=== PATIENT | female | born 1960 | race Caucasian/White ===

== ENCOUNTER → 2020-11-16 08:39 | Outpatient (BNVA) | payer BC, SELFPAY | PROVIDERS: PCP Internal Medicine; Referring Provider Internal Medicine; Visit Provider Student in an Organized Health Care Education/Training Program | DX: Z76.89 Persons encountering health services in other specified circumstances (principal) ==

== ENCOUNTER 2020-12-14 08:04 | Outpatient (REF) | payer BC, SELFPAY ==
[2020-12-14 12:06] LABS: Alanine Aminotransferase 29 U/L (0-31); Albumin Level 4.3 g/dL (3.5-5.0); Alkaline Phosphatase 110 U/L (39-117); Anion Gap 15 (12-20); Aspartate Amino Transferase 19 U/L (5-31); Bilirubin Direct 0.3 mg/dL (0.0-0.5); Bilirubin Total 0.5 mg/dL (0.0-1.0); Blood Urea Nitrogen 18 mg/dL (9-16); Calcium 9.3 mg/dL (8.4-10.2); Carbon Dioxide 29 mmol/L (22-29); Chloride 104 mmol/L (96-108); Cholesterol 136 mg/dL; Estimated Glomerular Filt Rate > 60; Glucose Fasting 88 mg/dL (60-99); HDL Cholesterol 59 mg/dL; LDL Cholesterol Calculated 63 mg/dl; Potassium 5.3 mmol/l (3.3-5.1); Sodium 143 mmol/L (135-145); Total Protein 6.8 g/dL (6.5-8.0); Triglycerides 72 mg/dL
== END 2020-12-14 08:05 | disposition home or self-care (01) ==
LOC: HO.HMGCLDS 08:04
PROVIDERS: Student in an Organized Health Care Education/Training Program; PCP Internal Medicine; Visit Provider Internal Medicine
DX: I10 Essential (primary) hypertension (principal); E78.9 Disorder of lipoprotein metabolism, unspecified; M47.816 Spondylosis without myelopathy or radiculopathy, lumbar region
CPT/HCPCS: 36415; 80048; 80053; 80061; 80076; 82248

== ENCOUNTER 2021-06-27 08:05 | Outpatient (REF) | payer BC, SELFPAY ==
[2021-06-27 11:17] LABS: MANUAL DIFF FLAG NO
[2021-06-27 11:24] LABS: Basophils Percent Auto 0.3 % (0-2); Eosinophils Absolute Auto 0.1 X10*3/uL (0.0-0.4); Eosinophils Percent Auto 0.9 % (0-4); Hematocrit 44.7 % (37-47); Hemoglobin 14.1 g/dl (12.0-16.0); Imm Gran Abs Auto 0.06 X10*3/uL (0.00-0.03); Imm Gran Pct Auto 0.6 % (0.0-0.4); Lymphocytes Percent Auto 30.8 % (20-40); Mean Corpuscular HGB Conc 31.5 g/dl (31.0-35.0); Mean Corpuscular Hemoglobin 32.3 pg (27.0-33.0); Mean Corpuscular Volume 102.5 fL (80-98); Mean Platelet Volume 10.3 fL (9.4-12.3); Monocytes Absolute Auto 0.8 X10*3/uL (0.1-1.2); Neutrophils Absolute Auto 5.9 X10*3/uL (2.0-8.3); Neutrophils Percent Auto 59.4 % (45-73); Platelet Count 316 X10*3/uL (160-400); Red Blood Count 4.36 X10*6/uL (4.20-5.50); Red Cell Distribution Width 13.2 % (11.0-16.0); White Blood Count 9.9 X10*3/uL (4.8-10.8)
[2021-06-27 11:46] LABS: Alanine Aminotransferase 26 U/L (0-31); Albumin Level 4.2 g/dL (3.5-5.0); Alkaline Phosphatase 107 U/L (39-117); Anion Gap 14 (12-20); Aspartate Amino Transferase 21 U/L (5-31); Bilirubin Total 0.4 mg/dL (0.0-1.0); Blood Urea Nitrogen 12 mg/dL (9-16); Calcium 9.2 mg/dL (8.4-10.2); Carbon Dioxide 26 mmol/L (22-29); Chloride 110 mmol/L (96-108); Cholesterol 140 mg/dL; Estimated Glomerular Filt Rate > 60; Glucose Fasting 97 mg/dL (60-99); HDL Cholesterol 46 mg/dL; LDL Cholesterol Calculated 64 mg/dl; Potassium 4.9 mmol/L (3.3-5.1); Sodium 145 mmol/L (135-145); Total Protein 6.5 g/dL (6.5-8.0); Triglycerides 152 mg/dL
== END 2021-06-27 08:06 | disposition home or self-care (01) ==
LOC: HO.HMGCLDS 08:05
PROVIDERS: PCP Internal Medicine; Visit Provider Internal Medicine
DX: E78.9 Disorder of lipoprotein metabolism, unspecified (principal); I10 Essential (primary) hypertension
CPT/HCPCS: 36415; 80053; 80061; 85025

== ENCOUNTER → 2021-09-21 10:47 | Outpatient (BNVA) | payer BC, SELFPAY | PROVIDERS: PCP Internal Medicine; Visit Provider Nurse Practitioner Family ==

== ENCOUNTER → 2021-11-30 12:23 | Outpatient (BNVA) | payer BC, SELFPAY | PROVIDERS: PCP Internal Medicine; Visit Provider Obstetrics & Gynecology ==

== ENCOUNTER 2021-12-26 08:09 | Outpatient (REF) | payer BC, SELFPAY ==
[2021-12-26 11:50] LABS: Alanine Aminotransferase 23 U/L (0-31); Albumin Level 4.1 g/dL (3.5-5.0); Alkaline Phosphatase 105 U/L (39-117); Anion Gap 14 (12-20); Aspartate Amino Transferase 18 U/L (5-31); Bilirubin Total 0.5 mg/dL (0.0-1.0); Blood Urea Nitrogen 14 mg/dL (9-16); Calcium 9.8 mg/dL (8.4-10.2); Carbon Dioxide 28 mmol/L (22-29); Chloride 107 mmol/L (96-108); Cholesterol 143 mg/dL; Estimated Glomerular Filt Rate > 60; Glucose Fasting 101 mg/dL (60-99); HDL Cholesterol 48 mg/dL; LDL Cholesterol Calculated 67 mg/dl; Potassium 5.1 mmol/L (3.3-5.1); Sodium 144 mmol/L (135-145); Total Protein 6.6 g/dL (6.5-8.0); Triglycerides 144 mg/dL
== END 2021-12-26 08:10 | disposition home or self-care (01) ==
LOC: HO.HMGCLDS 08:09
PROVIDERS: PCP Internal Medicine; Visit Provider Internal Medicine
DX: E78.9 Disorder of lipoprotein metabolism, unspecified (principal); I10 Essential (primary) hypertension; L02.93 Carbuncle, unspecified; E66.01 Morbid (severe) obesity due to excess calories
CPT/HCPCS: 36415; 80053; 80061

== ENCOUNTER → 2022-04-05 11:56 | Outpatient (BNVA) | payer BC, SELFPAY | PROVIDERS: PCP Internal Medicine; Visit Provider Nurse Practitioner | DX: Z12.11 Encounter for screening for malignant neoplasm of colon (principal) ==

== ENCOUNTER 2022-06-26 08:13 | Outpatient (REF) | payer BC, SELFPAY ==
[2022-06-26 12:10] LABS: Alanine Aminotransferase 22 U/L (0-31); Albumin Level 4.5 g/dL (3.5-5.0); Alkaline Phosphatase 103 U/L (39-117); Anion Gap 16 (12-20); Aspartate Amino Transferase 19 U/L (5-31); Bilirubin Total 0.5 mg/dL (0.0-1.0); Blood Urea Nitrogen 17 mg/dL (9-16); Calcium 9.1 mg/dL (8.4-10.2); Carbon Dioxide 24 mmol/L (22-29); Chloride 106 mmol/L (96-108); Cholesterol 155 mg/dL; Estimated Glomerular Filt Rate > 60; Glucose Fasting 89 mg/dL (60-99); HDL Cholesterol 52 mg/dL; LDL Cholesterol Calculated 70 mg/dl; Potassium 4.6 mmol/L (3.3-5.1); Sodium 141 mmol/L (135-145); Triglycerides 168 mg/dL
== END 2022-06-26 08:14 | disposition home or self-care (01) ==
LOC: HO.HMGCLDS 08:13
PROVIDERS: PCP Internal Medicine; Visit Provider Internal Medicine
DX: E78.9 Disorder of lipoprotein metabolism, unspecified (principal); I10 Essential (primary) hypertension; M17.12 Unilateral primary osteoarthritis, left knee; E66.01 Morbid (severe) obesity due to excess calories
CPT/HCPCS: 36415; 80053; 80061

== ENCOUNTER 2022-11-22 09:07 | Day surgery (SDC) | payer BC, SELFPAY ==
[2022-11-19 12:14] VITALS: BMI 41.6
--- NOTE | 2022-11-21 12:22 | HO.ANESPROP2 ---
Documented by User: Heather Parker NP 11/21/22 12:24 HPI - Anesthesia Eval Consult details Narrative: 62yo F for Colonoscopy PMFSH Active Problems Active Problems: All Active Problems (Updated 11/19/22 @ 12:10 by Devi Thrasher RN) Well woman exam (Acute) Hypertension, essential (Acute) Lipid disorder (Acute) Morbid obesity due to excess calories (Acute) Recurrent boils (Acute) Well woman exam (Acute) Osteoarthritis of left knee (Acute) Colon cancer screening (Acute) Lumbar spondylosis (Acute) Past Medical History Medical History (Updated 11/19/22 @ 12:10 by Devi Thrasher RN) Elevated cholesterol Endometrial cancer HTN (hypertension) Lumbar spondylosis Osteoarthritis Family History Family History Father Pancreatic cancer Mother No problems noted. Sister Diabetes mellitus Sister Epilepsy Sister Epilepsy Sister Breast cancer Sister No problems noted. Maternal Grandfather Unknown family medical history Maternal Grandmother Unknown family medical history Paternal Grandfather No problems noted. Paternal Grandmother Unknown family medical history Surgical History Surgical History (Updated 11/19/22 @ 12:09 by Devi Thrasher RN) History of carpal tunnel release History of colonoscopy History of fusion of cervical spine History of hysterectomy for cancer History of lithotripsy Hx of bilateral cataract extraction Social History Social History Housing: House Alcohol intake: never Patient Tobacco Use Status: Current everyday Tobacco user Tobacco use type: Cigarette Cigarettes Per Day: 10 Years Smoked: 35 e-Cigarette/Vaping Use: Never Used Current occupational status: employed Cognitive needs: No Hearing needs: Yes Vision needs: No Meds Allergies Allergy/AdvReac Type Severity Reaction Status Date / Time Antihistamines - Alkylamine AdvReac Intermediate TACHYCARDIA Verified 09/21/22 11:17 [ANTIHISTAMINES - ALKYLAMINE] Home Medications Medication Instructions Recorded Confirmed Last Taken Type duloxetine 30 mg capsule,delayed 30 mg PO BID 11/16/20 11/19/22 Unknown History release Exam Exam Date and Time: November 21, 2022 1222 Height,Weight and Vital Signs: Height 5 ft 7 in Weight 120.656 kg Pertinent Lab Results Pertinent Lab Results: Laboratory Tests 06/27/21 06/26/22 08:10 08:27 WBC 9.9 Hgb 14.1 Hct 44.7 Plt Count 316 Sodium 141 Potassium 4.6 Chloride 106 Carbon Dioxide 24 BUN 17 H Creatinine 0.65 Assessment and Plan Assessment Anesthesia Assessment: Chart Reviewed Documented by User: Harrison Tipton MD 11/22/22 14:31 HPI - Anesthesia Eval Consult details Narrative: 62yo F for Colonoscopy Smoker PMFSH Past Medical History Medical History (Updated 11/19/22 @ 12:10 by Devi Thrasher RN) Elevated cholesterol Endometrial cancer HTN (hypertension) Lumbar spondylosis Osteoarthritis Family History Family History Father Pancreatic cancer Mother No problems noted. Sister Diabetes mellitus Sister Epilepsy Sister Epilepsy Sister Breast cancer Sister No problems noted. Maternal Grandfather Unknown family medical history Maternal Grandmother Unknown family medical history Paternal Grandfather No problems noted. Paternal Grandmother Unknown family medical history Family history of problems with anesthesia: No Surgical History Surgical History (Updated 11/19/22 @ 12:09 by Devi Thrasher RN) History of carpal tunnel release History of colonoscopy History of fusion of cervical spine History of hysterectomy for cancer History of lithotripsy Hx of bilateral cataract extraction History of Problems with Anesthesia: No Social History Social History Housing: House Alcohol intake: never Patient Tobacco Use Status: Current everyday Tobacco user Tobacco use type: Cigarette Cigarettes Per Day: 10 Years Smoked: 35 e-Cigarette/Vaping Use: Never Used Current occupational status: employed Cognitive needs: No Hearing needs: Yes Vision needs: No Meds Allergies Allergy/AdvReac Type Severity Reaction Status Date / Time Antihistamines - Alkylamine AdvReac Intermediate TACHYCARDIA Verified 09/21/22 11:17 [ANTIHISTAMINES - ALKYLAMINE] Home Medications Medication Instructions Recorded Confirmed Last Taken Type duloxetine 30 mg capsule,delayed 30 mg PO BID 11/16/20 11/19/22 Unknown History release Exam Airway Mallampati Class: III TM Dist: >3cm Neck ROM: Full Loose/Missing/Broken Teeth: Yes Heart: S1,S2 Lungs: b/l breath sounds Assessment and Plan Assessment Anesthesia Assessment: Anesthesia Plan Discussed Final Anesthetic Review Family History of Problems with Anesthesia: No History of Problems with Anesthesia: No NPO: Yes ASA Class: III Final Preanesthetic Review: Meds/Allgs Chart Reviewed, Consent Obtained/Reviewed and Anes Risks/Benef Reviewed Patient Risk: Intermediate Procedure Risk: Intermediate Anesthetic Plan Anesthetic Plan: MAC: Disposition: Standard PACU
--- NOTE | 2022-11-21 12:33 | PC.NURSE ---
Patient called with arrival time & pre op instructions. Patient stated I do have a cold but I spoke with on of your associates earlier and they spoke with the doc and they said as long as I don't have a fever I would be okay Patient informed anesthesia will evaluate tomorrow at bedside for any cough, congestion etc to make sure its safe to give her anesthesia and they will make the decide whether or not she can proceed or need to reschedule when better. Patient agreeable to plan. NPO after midnight, taking prep properly & leaving valuables at home stressed.
[2022-11-22 09:50] VITALS: BP 128/71; PULSE 96; RESP 18; TEMP 36.5; O2SAT 95
--- NOTE | 2022-11-22 09:59 | MHC.SHP ---
Pre-Procedural Eval Section A Date of Service: 11/22/22 Section B Chief Complaint: screening Relevant Family History (Specify if Yes): No Relevant Social History: Tobacco Use Present Medications: see Short Stay Collaborative assessment Medical History: Significant History (Elevated cholesterol Endometrial cancer HTN (hypertension) Lumbar spondylosis Osteoarthritis) History of Previous Operations: Relevant previous surgery/procedure and date(s) (History of carpal tunnel release History of colonoscopy History of fusion of cervical spine History of hysterectomy for cancer History of lithotripsy Hx of bilateral cataract extraction) Allergies: Allergies Allergy/AdvReac Type Severity Reaction Status Date / Time Antihistamines - Alkylamine AdvReac Intermediate TACHYCARDIA Verified 09/21/22 11:17 [ANTIHISTAMINES - ALKYLAMINE] Review of Systems Sugical H&P ROS: Negative: Constitution, Cardiovascular, Respiratory, Neurological, Psychiatric, Hem-Onc, Allergic/Immunologic, Gastrointestinal, Genitourinary, Musculoskeletal, Integumentary, Endocrine and Eyes/Ears/Nose/Throat Exam Surgical H&P Exam: Normal: HEENT, Normal: Heart, Normal: Lungs, Normal: Extremities, Normal: Abdomen, Normal: Skin and Normal: Neurological Plan Diagnosis/Plan: Unchanged I have reviewed the history and physical and performed a pertinent physical examination on my patient. No changes have occurred unless specified. Time Spent With Patient Time: Total time managing care of this patient today ____ minutes.
--- NOTE | 2022-11-22 10:00 | W.PM.OPN ---
Operative Note Operative Note Date of Service: 11/22/22 Narrative: Operative Information Procedure Description: Colonoscopy Indication: screening Anesthesia: MAC COLONOSCOPY Instrument: Olympus variable stiffness pediatric scope 190L (initially started with adult scope but couldnt get past rectosigmoid junction which was very tight) Colonoscopy Monitoring: Vital signs and clinical assessment, continuous EKG monitoring, Pulse oximetry, Carbon Dioxide monitoring and blood pressure monitoring were done throughout the procedure. Colon withdrawal time was 9 minutes. Procedure: The patient was placed in the left lateral decubitis position and pre-procedure medications were administered. After a digital rectal examination of the ano-rectum, the video colonoscope was inserted into the rectum and advanced through the colon to the cecum/TI. The colonoscope was slowly withdrawn in a retrograde panoramic fashion and the colon mucosa was carefully examined including a retroflexed view of the rectum. Findings and interventions are described below. Procedure Difficulty: moderate Findings: Terminal Ileum-not intubated due to looping Cecum:normal Ascending Colon: normal Transverse Colon -normal Descending Colon: 10 mm sessile polyp removed with cold snare, adenomatous by kudo pit pattern Sigmoid Colon: normal Rectum: Retroflexion with small internal hemorrhoids, grade I Anorectum - normal Colon preparation: Mittie Bowel Preparation Scale Right colon; 3 Transverse colon: 3 Left colon; 3 (0 = Unprepared colon segment with mucosa not seen due to solid stool that cannot be cleared. 1 = Portion of mucosa of the colon segment seen, but other areas of the colon segment not well seen due to staining, residual stool and/or opaque liquid. 2 = Minor amount of residual staining, small fragments of stool and/or opaque liquid, but mucosa of colon segment seen well. 3 = Entire mucosa of colon segment seen well with no residual staining, small fragments of stool or opaque liquid) Impression and Post Procedure Diagnosis: polyp internal hemorrhoids Plan: High fiber diet leaflet Avoid straining at stool, epsom salts and sitz bath, anusol supps or cream Repeat Colonoscopy in 5 years due to polyp or earlier if clinically indicated Above findings were reviewed with the patient and relevant handouts were provided if indicated.
[2022-11-22 10:38] VITALS: BP 133/71; PULSE 91; RESP 16; TEMP 36.3; O2SAT 95
[2022-11-22 10:43] VITALS: BP 124/61; PULSE 90; RESP 16; O2SAT 95
--- NOTE | 2022-11-22 10:47 | PC.NURSE ---
report given to Sharon [employer]SERVATION PLANNER at this time.
[2022-11-22 10:58] VITALS: BP 124/61; PULSE 84; RESP 16; TEMP 36.3; O2SAT 97
== END 2022-11-22 11:33 | disposition home or self-care (01) ==
PROVIDERS: PCP Internal Medicine; Visit Provider Internal Medicine Gastroenterology
PROC: 0DJD8ZZ Inspection of Lower Intestinal Tract, Via Natural or Artificial Opening Endoscopic (ICD-10-PCS; CPT 45378; principal; 2022-11-22 10:10)
DX: Z12.11 Encounter for screening for malignant neoplasm of colon (principal); D12.4 Benign neoplasm of descending colon; K64.0 First degree hemorrhoids; I10 Essential (primary) hypertension; E78.00 Pure hypercholesterolemia, unspecified; E66.01 Morbid (severe) obesity due to excess calories; Z68.41 Body mass index [BMI] 40.0-44.9, adult; Z79.899 Other long term (current) drug therapy; Z88.8 Allergy status to other drugs, medicaments and biological substances; Z85.42 Personal history of malignant neoplasm of other parts of uterus; F17.210 Nicotine dependence, cigarettes, uncomplicated
CPT/HCPCS: 45385; 88305

== ENCOUNTER → 2022-12-04 12:24 | Outpatient (BNVA) | payer BC, SELFPAY | PROVIDERS: PCP Internal Medicine; Visit Provider Obstetrics & Gynecology | DX: Z13.89 Encounter for screening for other disorder (principal) ==

== ENCOUNTER 2022-12-20 08:17 | Outpatient (REF) | payer BC, SELFPAY ==
[2022-12-20 11:17] LABS: MANUAL DIFF FLAG NO
[2022-12-20 11:22] LABS: Basophils Absolute Auto 0.1 X10*3/uL (0.0-0.2); Basophils Percent Auto 0.5 % (0-2); Eosinophils Absolute Auto 0.1 X10*3/uL (0.0-0.4); Eosinophils Percent Auto 1.1 % (0-4); Hematocrit 45.4 % (37.0-47.0); Hemoglobin 14.7 g/dl (12.0-16.0); Imm Gran Abs Auto 0.04 X10*3/uL (0.00-0.03); Imm Gran Pct Auto 0.4 % (0.0-0.4); Lymphocytes Absolute Auto 3.3 X10*3/uL (1.2-4.9); Mean Corpuscular HGB Conc 32.4 g/dl (31.0-35.0); Mean Corpuscular Hemoglobin 32.3 pg (27.0-33.0); Mean Corpuscular Volume 99.8 fL (80.0-98.0); Mean Platelet Volume 10.4 fL (9.4-12.3); Monocytes Absolute Auto 0.8 X10*3/uL (0.1-1.2); Monocytes Percent Auto 8.3 % (2-11); Neutrophils Absolute Auto 5.6 x10*3/uL (2.0-8.3); Neutrophils Percent Auto 56.7 % (45-73); Platelet Count 314 X10*3/uL (160-400); Red Blood Count 4.55 X10*6/uL (4.20-5.50); Red Cell Distribution Width 12.9 % (11.0-16.0); White Blood Count 9.9 X10*3/uL (4.8-10.8)
[2022-12-20 11:36] LABS: Alanine Aminotransferase 23 U/L (0-31); Albumin Level 4.1 g/dL (3.5-5.0); Alkaline Phosphatase 113 U/L (39-117); Anion Gap 14 (12-20); Aspartate Amino Transferase 21 U/L (5-31); Bilirubin Total 0.5 mg/dL (0.0-1.0); Blood Urea Nitrogen 14 mg/dL (9-16); Calcium 9.1 mg/dL (8.4-10.2); Carbon Dioxide 25 mmol/L (22-29); Chloride 106 mmol/L (96-108); Cholesterol 145 mg/dL; Estimated Glomerular Filt Rate > 60; Glucose Fasting 94 mg/dL (60-99); HDL Cholesterol 50 mg/dL; LDL Cholesterol Calculated 67 mg/dl; Potassium 4.3 mmol/L (3.3-5.1); Sodium 141 mmol/L (135-145); Total Protein 6.6 g/dL (6.5-8.0); Triglycerides 141 mg/dL
== END 2022-12-20 08:18 | disposition home or self-care (01) ==
LOC: HO.HMGCLDS 08:17
PROVIDERS: PCP Internal Medicine; Visit Provider Internal Medicine
DX: E66.01 Morbid (severe) obesity due to excess calories (principal); E78.9 Disorder of lipoprotein metabolism, unspecified; I10 Essential (primary) hypertension
CPT/HCPCS: 36415; 80053; 80061; 85025

== ENCOUNTER 2023-06-25 08:10 | Outpatient (REF) | payer BC, SELFPAY ==
[2023-06-25 11:15] LABS: MANUAL DIFF FLAG NO
[2023-06-25 11:59] LABS: Basophils Absolute Auto 0.1 X10*3/uL (0.0-0.2); Basophils Percent Auto 0.6 % (0-2); Eosinophils Absolute Auto 0.1 X10*3/uL (0.0-0.4); Hematocrit 45.5 % (37.0-47.0); Hemoglobin 14.5 g/dl (12.0-16.0); Imm Gran Abs Auto 0.05 X10*3/uL (0.00-0.03); Imm Gran Pct Auto 0.6 % (0.0-0.4); Lymphocytes Percent Auto 33.4 % (20-40); Mean Corpuscular HGB Conc 31.9 g/dl (31.0-35.0); Mean Corpuscular Hemoglobin 32.9 pg (27.0-33.0); Mean Corpuscular Volume 103.2 fL (80.0-98.0); Mean Platelet Volume 10.3 fL (9.4-12.3); Monocytes Absolute Auto 0.8 X10*3/uL (0.1-1.2); Monocytes Percent Auto 8.4 % (2-11); Neutrophils Absolute Auto 5.1 x10*3/uL (2.0-8.3); Platelet Count 324 X10*3/uL (160-400); Red Blood Count 4.41 X10*6/uL (4.20-5.50); Red Cell Distribution Width 12.8 % (11.0-16.0)
[2023-06-25 12:33] LABS: Alanine Aminotransferase 24 U/L (0-31); Alkaline Phosphatase 99 U/L (39-117); Anion Gap 11 (12-20); Aspartate Amino Transferase 21 U/L (5-31); Bilirubin Total 0.4 mg/dL (0.0-1.0); Blood Urea Nitrogen 14 mg/dL (9-16); Calcium 9.5 mg/dL (8.4-10.2); Carbon Dioxide 29 mmol/L (22-29); Chloride 107 mmol/L (96-108); Estimated Glomerular Filt Rate > 60; Glucose Random 97 mg/dL (60-115); Potassium 4.5 mmol/L (3.3-5.1); Sodium 142 mmol/L (135-145); Total Protein 6.8 g/dL (6.5-8.0)
== END 2023-06-25 08:11 | disposition home or self-care (01) ==
LOC: HO.HMGCLDS 08:10
PROVIDERS: PCP Internal Medicine; Visit Provider Internal Medicine
DX: E78.9 Disorder of lipoprotein metabolism, unspecified (principal); I10 Essential (primary) hypertension
CPT/HCPCS: 36415; 80053; 85025

== ENCOUNTER 2023-06-26 11:28 | Outpatient (AMB) | payer BC, SELFPAY ==
[2023-06-26 11:29] VITALS: BP 136/52; PULSE 97; O2SAT 100; BMI 42.0
--- NOTE | 2023-06-26 11:29 | MHC.PC.OV ---
Vital Signs 06/26/23 11:29 Height 5 ft 6.5 in Weight 264 lb 2 oz BMI 42.0 BP 136/52 L Blood Pressure Location Rt brachial Position Sitting Pulse 97 Pulse Source Pulse Oximeter Pulse Oximetry (%) 100 Oxygen Delivery Method Room Air Intake Visit Reasons: Annual PE Allergies Antihistamines - Alkylamine [ANTIHISTAMINES - ALKYLAMINE] Adverse Reaction (Intermediate, Verified 06/26/23 11:30) TACHYCARDIA Medication List - Last Reconciled 06/26/23 by Kathleen Vizcarra MD atorvastatin 40 mg PO DAILY duloxetine 30 mg PO BID lisinopril 20 mg PO DAILY oxycodone-acetaminophen 5-325 mg (Percocet) 1 tab PO ONCE PRN 14 days peg 3350-electrolytes 236-22.74-6.74 -5.86 gram (Golytely) 240 mL PO Q10M 1 day tizanidine 4 mg PO BEDTIME PRN Tobacco use date assessed: 06/26/23 Dental Screening Dental Screen Date: 06/26/23 Did you have a dental visit in the last 12 months?: Yes Did you have a dental problem in the last 6 months where you did not have access to dental care?: No Was dental information given to patient?: No HPI Annual PE HPI Details Patient is a 62-year-old female came in today for her six-month follow-up appointment and physical exam Blood pressure is stable patient is on lisinopril tolerating medication Lipid disorder:? Continue atorvastatin 40 mg labs done recently reviewed Patient goes to pain management for left side lumbar pain and sciatica management She has had MRIs done and was getting cortisone injection which has not helped She also need a knee replacement left side but need to lose about 50 lb before that can be proceeded.? She is on Percocet through PCP office and is taking 30 tablets every 6 months patient says that she only uses 3 or 4 tablets every month Side effect of medication reviewed with the patient including constipation, addictive potential, controlled nature of medication, risk of dizziness and fall, and no driving while taking the medication or working with the machine and do not share the medication with anyone.? She has had colonoscopy November 2022, and was told return in 5 year it was done at [facility].? Mammogram is up-to-date Patient sees Dr. Suárez every year for OBGYN care she has a history of endometrial cancer stage I and had radical hysterectomy BMI is above 40 patient need to lose weight patient wanted to try Ozempic injections I have sent the lowest does She will return in 4 weeks for follow-up, side effect of a some back reviewed with the patient Follow-up 6 months and 4 weeks for weight PFSH Medical History Elevated cholesterol Endometrial cancer HTN (hypertension) Lumbar spondylosis Osteoarthritis Surgical History History of carpal tunnel release History of colonoscopy History of fusion of cervical spine History of hysterectomy for cancer History of lithotripsy Hx of bilateral cataract extraction Family History Father Pancreatic cancer Mother No problems noted. Sister Diabetes mellitus Sister Epilepsy Sister Epilepsy Sister Breast cancer Sister No problems noted. Maternal Grandfather Unknown family medical history Maternal Grandmother Unknown family medical history Paternal Grandfather No problems noted. Paternal Grandmother Unknown family medical history Social History Housing: House Alcohol intake: never Patient Tobacco Use Status: Current everyday Tobacco user Tobacco use type: Cigarette Cigarettes Per Day: 10 Years Smoked: 35 e-Cigarette/Vaping Use: Never Used Current occupational status: employed Cognitive needs: No Hearing needs: Yes Vision needs: No Female Reproductive History Menstrual Age of Menarche: 11 Questionnaire Thrive Questionnaire Date Thrive assessed: 06/27/22 AUDIT C Alcohol Use Questionnaire (AUDIT-C) 1. How often do you have a drink containing alcohol?: Never 3. How often do you have six or more drinks on one occasion?: Never Total Score: 0 HANH-7 AMB Questionnaire HANH-7 Date HANH - 7 assessed: 12/25/22 Source: Developed by Drs. Lennox Lioa, Lennie Flores, Yemi Deluca and colleagues, with an educational gina from [employer]. Review of Systems Const Denies chills, Denies fever(s) and Denies headache(s) Eyes Denies blurry vision ENT Denies headache(s), Denies nasal discharge, Denies nasal obstruction, Denies odynophagia and Denies sinus pain Card Denies chest pain at rest and Denies chest pain with activity Resp Denies cough and Denies hemoptysis GI Denies diarrhea, Denies odynophagia, Denies vomiting and Denies hematemesis Reports as per HPI Musc Denies abnormal gait Skin/Breast Reports as per HPI Neuro Denies Neuro-related abnormal movements, Denies Abnormal speech present, Denies abnormal gait, Denies headache(s) and Denies Sensory deficit (Neuro) Psych Denies mood swings and Denies paranoia Endo Reports as per HPI Joce/Lymph Reports as per HPI Aller/Immun Reports as per HPI Physical exam (Primary Care) Vital Signs: Last Vital Signs Pulse 97 06/26/23 11:29 BP 136/52 L 06/26/23 11:29 Pulse Ox 100 06/26/23 11:29 Oxygen Delivery Method Room Air 06/26/23 11:29 BMI result Body Mass Index 42.0 Tobacco/Smoking Status: Tobacco use Status Tobacco use date assessed 06/26/23 06/26/23 11:32 Patient Tobacco Use Status Current everyday Tobacco 06/26/23 11:32 Tobacco use type Cigarette 06/26/23 11:32 e-Cigarette/Vaping Use Never Used 06/26/23 11:32 Thrive Assessment: Date of Thrive Assessment Date Thrive assessed 06/27/22 06/26/23 11:32 Const General: cooperative, comfortable and no acute distress Orientation/consciousness: patient oriented x3 HENMT Head: Yes normocephalic and Yes atraumatic Eyes General: appearance normal, both eyes and all related structures Pupils: Equal, round and reactive pupils present EOM: EOMs intact bilaterally Neck Neck: Yes supple and No lymphadenopathy Thyroid: Thyroid normal Lymphatic: no lymphadenopathy noted Chest Breast/axilla palpation: normal palpation of the breasts Resp Effort & Inspection: normal respiratory effort and able to speak in complete sentences Auscultation: clear to auscultation bilaterally Cardio Heart sounds: S1 normal heart sound present and S2 normal heart sound present GI Palpation (GI): Soft to palpation and nontender Auscultation: normal bowel sounds General: Yes no CVA tenderness Back/Spine/Pelvis Back: no CVA tenderness Skin General skin exam: elasticity normal and turgor normal Neuro General: patient oriented x3 and gait normal Cranial nerves: Yes Equal, round and reactive pupils present Speech: No Abnormal speech present Sensory Exam: No Sensory deficit (Neuro) Coordination: tandem gait normal and Romberg test negative Extrem General: Yes normal exam except as noted and No edema Assessment and Plan Assessment & Plan (1) Encounter for general adult medical examination with abnormal findings: Code(s): Z00.01 - Encounter for general adult medical examination with abnormal findings (2) Hypertension, essential: Code(s): I10 - Essential (primary) hypertension (3) Lipid disorder: Code(s): E78.9 - Disorder of lipoprotein metabolism, unspecified (4) Morbid obesity due to excess calories: Code(s): E66.01 - Morbid (severe) obesity due to excess calories Plan Patient is a 62-year-old female came in today for her six-month follow-up appointment and physical exam Blood pressure is stable patient is on lisinopril tolerating medication Lipid disorder:? Continue atorvastatin 40 mg labs done recently reviewed Patient goes to pain management for left side lumbar pain and sciatica management She has had MRIs done and was getting cortisone injection which has not helped She also need a knee replacement left side but need to lose about 50 lb before that can be proceeded.? She is on Percocet through PCP office and is taking 30 tablets every 6 months patient says that she only uses 3 or 4 tablets every month Side effect of medication reviewed with the patient including constipation, addictive potential, controlled nature of medication, risk of dizziness and fall, and no driving while taking the medication or working with the machine and do not share the medication with anyone.? She has had colonoscopy November 2022, and was told return in 5 year it was done at [facility].? Mammogram is up-to-date Patient sees Dr. Suárez every year for OBGYN care she has a history of endometrial cancer stage I and had radical hysterectomy BMI is above 40 patient need to lose weight patient wanted to try Ozempic injections I have sent the lowest does She will return in 4 weeks for follow-up, side effect of a some back reviewed with the patient Follow-up 6 months and 4 weeks for weight Medications: New semaglutide (Ozempic) for 4 weeks 0.25 mg (0.4 mL) subcut QWEEK 3 mL 0RF Changed From oxycodone-acetaminophen 5-325 mg (Percocet) Partial Fill upon patient request. 1 tab PO ONCE 14 days PRN 14 tabs 0RF pain To oxycodone-acetaminophen 5-325 mg (Percocet) Partial Fill upon patient request. other rosario fill whole script 1 tab PO ONCE PRN 30 tabs 0RF pain 30 days Coding Level of Care Code Est Pt Prev Care 40-64y(01565) Diagnoses Encounter for general adult medical examination with abnormal findings Z00.01 Hypertension, essential I10 Lipid disorder E78.9 Morbid obesity due to excess calories E66.01
== END 2023-06-26 13:27 | disposition home or self-care (01) ==
PROVIDERS: Visit Provider Internal Medicine
DX: Z00.01 Encounter for general adult medical examination with abnormal findings (principal); I10 Essential (primary) hypertension; E66.01 Morbid (severe) obesity due to excess calories; Z68.41 Body mass index [BMI] 40.0-44.9, adult; E78.9 Disorder of lipoprotein metabolism, unspecified
CPT/HCPCS: 99396

== ENCOUNTER 2023-08-02 10:36 | Outpatient (AMB) | payer BC, SELFPAY ==
[2023-08-02 10:40] VITALS: BP 126/78; PULSE 85; TEMP 36.3; O2SAT 97; BMI 41.9
--- NOTE | 2023-08-02 10:40 | A.OFFVIS_ITS ---
Intake Vital Signs 08/02/23 10:40 Height 5 ft 6 in Weight 259 lb 11.272 oz BMI 41.9 BP 126/78 Blood Pressure Location Rt brachial Position Sitting Pulse 85 Pulse Source Pulse Oximeter Temp 97.3 F Temp Source Skin Pulse Oximetry (%) 97 Intake Visit Reasons: LBP Intake Note: Pt seen today for follow up. [place] Carpenter Required: No Accompanied by: Self / Same As Patient Allergies Antihistamines - Alkylamine [ANTIHISTAMINES - ALKYLAMINE] Adverse Reaction (Intermediate, Verified 08/02/23 10:53) TACHYCARDIA Medication List - Last Reconciled 08/02/23 by Yaron Adler MD atorvastatin 40 mg PO DAILY duloxetine 30 mg PO BID lisinopril 20 mg PO DAILY oxycodone-acetaminophen 5-325 mg (Percocet) 1 tab PO ONCE PRN 7 days tizanidine 4 mg PO BEDTIME PRN Wegovy (semaglutide (weight loss)) 0.25 mg (0.5 mL) subcut QWEEK NS HPI HPI Comments History of Present Illness Details 63-year-old female with generalized osteoarthritis presents for follow- up. She was last seen by Yesenia Hardy last year Patient states that she was told she needs left knee replacement. She was told however that she will need to lose 50 lb before she can proceed with the procedure. She was evaluated by weight management and she was told that the recommended surgery would be a gastric bypass which she is not interested in. She is on the wait list for Wegov[facility]. Continues to have low back pain, she was evaluated by spine surgeon and surgery was suggested and she was told she would have about 65% success rate and will need 6 weeks of rehab. Patient does not want to go through with the surgery at this point. Continues to get injections in her spine which last 6-7 weeks, she gets them every 3 months. She gets intermittent aches and pains in her hands, but nothing different from before. [facility] Medical History Elevated cholesterol Endometrial cancer HTN (hypertension) Lumbar spondylosis Osteoarthritis Surgical History History of carpal tunnel release History of colonoscopy History of fusion of cervical spine History of hysterectomy for cancer History of lithotripsy Hx of bilateral cataract extraction Family History Father Pancreatic cancer Mother No problems noted. Sister Diabetes mellitus Sister Epilepsy Sister Epilepsy Sister Breast cancer Sister No problems noted. Maternal Grandfather Unknown family medical history Maternal Grandmother Unknown family medical history Paternal Grandfather No problems noted. Paternal Grandmother Unknown family medical history Social History Housing: House Alcohol intake: never Patient Tobacco Use Status: Current everyday Tobacco user Tobacco use type: Cigarette Cigarettes Per Day: 10 Years Smoked: 35 e-Cigarette/Vaping Use: Never Used Current occupational status: employed Cognitive needs: No Hearing needs: Yes Vision needs: No Female Reproductive History Menstrual Age of Menarche: 11 Review of Systems Musc Reports back pain, Reports arthralgias and Reports stiffness Physical Exam Vital Signs: Last Vital Signs Temp 97.3 F 08/02/23 10:40 Pulse 85 08/02/23 10:40 BP 126/78 08/02/23 10:40 Pulse Ox 97 08/02/23 10:40 BMI result Body Mass Index 41.9 Const General: cooperative, healthy appearing and comfortable Nutritional Appearance: obese morbidly obese Orientation/consciousness: patient oriented x3 Limitations: no limitations HEENT Head: Yes normocephalic and Yes atraumatic Mouth: moist mucous membranes Resp Effort & Inspection: normal respiratory effort and able to speak in complete sentences Auscultation: rhonchi Neuro General: patient oriented x3 Extrem Other: Mild osteoarthritic changes of both hands with few Katelin's nodes minimally tender to palpation Walks slowly, due to left knee pain Normal nailfold capillaroscopy Assessment & Plan Assessment & Plan (1) Generalized osteoarthritis: Code(s): M15.9 - Polyosteoarthritis, unspecified Plan: This is a 63-year-old female with generalized osteoarthritis who presents for follow-up. Patient states that she was told she needs left knee replacement.? She was told however that she will need to lose 50 lb before she can proceed with the procedure.? She was evaluated by weight management and she was told that the recommended surgery would be a gastric bypass which she is not interested in.? She is on the wait list for [facility].? Continues to have low back pain, she was evaluated by spine surgeon and surgery was suggested and she was told she would have about 65% success rate and will need 6 weeks of rehab.? Patient does not want to go through with the surgery at this point.? Continues to get injections in her spine which last 6-7 weeks, she gets them every 3 months.? She gets intermittent aches and pains in her hands, but nothing different from before. There are no signs of autoimmune rheumatic disease upon evaluation today. Patient has 2 sisters with rheumatoid arthritis. Tizanidine refilled. Follow- up as needed. I explained that she can request tizanidine refill from her PCP. If we will continue to refill tizanidine, I would like to see her in 1 year Plan I spent 15 minutes reviewing patient's chart, evaluating patient, ordering diagnostic workup, counseling patient and documenting in the chart Coding Level of Care Code Est Pt Level 3 (07915) Diagnoses Generalized osteoarthritis M15.9
== END 2023-08-02 11:35 | disposition home or self-care (01) ==
PROVIDERS: PCP Internal Medicine; Visit Provider Student in an Organized Health Care Education/Training Program
DX: M15.9 Polyosteoarthritis, unspecified (principal)
CPT/HCPCS: 99213

== ENCOUNTER → 2023-08-02 10:36 | Outpatient (BNVA) | payer BC, SELFPAY | PROVIDERS: PCP Internal Medicine; Visit Provider Student in an Organized Health Care Education/Training Program ==

== ENCOUNTER 2023-11-11 08:01 | Outpatient (REF) | payer BC, SELFPAY ==
[2023-11-11 11:55] LABS: Estimated Average Glucose 111 mg/dL; Hemoglobin A1c % 5.5 % (<6.0)
[2023-11-11 12:15] LABS: Alanine Aminotransferase 26 U/L (0-31); Albumin Level 4.2 g/dL (3.5-5.0); Alkaline Phosphatase 103 U/L (39-117); Anion Gap 13 (12-20); Aspartate Amino Transferase 22 U/L (5-31); Bilirubin Total 0.4 mg/dL (0.0-1.0); Blood Urea Nitrogen 13 mg/dL (9-16); Calcium 9.8 mg/dL (8.4-10.2); Carbon Dioxide 27 mmol/L (22-29); Chloride 108 mmol/L (96-108); Cholesterol 137 mg/dL (<200); Estimated Glomerular Filt Rate > 60; Glucose Fasting 104 mg/dL (60-99); HDL Cholesterol 53 mg/dL (>40); LDL Cholesterol Calculated 59 mg/dL (<100); Potassium 4.6 mmol/L (3.3-5.1); Sodium 143 mmol/L (135-145); Total Protein 6.9 g/dL (6.5-8.0); Triglycerides 126 mg/dL (<150)
[2023-11-11 12:20] LABS: TSH reflex Free T4 2.18 uIU/mL (0.32-4.0)
== END 2023-11-11 08:02 | disposition home or self-care (01) ==
LOC: HO.HMGCLDS 08:01
PROVIDERS: PCP Internal Medicine; Visit Provider Internal Medicine
DX: E78.9 Disorder of lipoprotein metabolism, unspecified (principal); I10 Essential (primary) hypertension
CPT/HCPCS: 36415; 80053; 80061; 83036; 84443

== ENCOUNTER 2023-11-13 14:04 | Outpatient (AMB) | payer BC, SELFPAY ==
[2023-11-13 14:05] VITALS: BP 126/82; PULSE 105; O2SAT 96; BMI 42.3
--- NOTE | 2023-11-13 14:05 | A.OFFPC_ITS ---
Vital Signs 11/13/23 14:05 Height 5 ft 6 in Weight 262 lb 2 oz BMI 42.3 BP 126/82 Blood Pressure Location Rt brachial Position Sitting Pulse 105 H Pulse Source Pulse Oximeter Pulse Oximetry (%) 96 Oxygen Delivery Method Room Air Intake Visit Reasons: 6m follow medication Allergies Antihistamines - Alkylamine [ANTIHISTAMINES - ALKYLAMINE] Adverse Reaction (Intermediate, Verified 11/13/23 14:05) TACHYCARDIA Medication List - Last Reconciled 11/13/23 by Kathleen Vizcarra MD atorvastatin 40 mg PO DAILY duloxetine 30 mg PO BID lisinopril 20 mg PO DAILY oxycodone-acetaminophen 5-325 mg (Percocet) 1 tab PO ONCE PRN 7 days tizanidine 4 mg PO BEDTIME PRN NS Wegovy (semaglutide (weight loss)) 0.25 mg (0.5 mL) subcut QWEEK NS Tobacco use date assessed: 11/13/23 Dental Screening Dental Screen Date: 11/13/23 Did you have a dental visit in the last 12 months?: Yes Did you have a dental problem in the last 6 months where you did not have access to dental care?: No Was dental information given to patient?: Patient has dentist HPI 6m follow medication HPI Details Patient is a 63-year-old female who is struggling with her weight Patient have severe osteoarthritis in her knees and chronic back pain She would like to have knee replacement surgery but because of her weight orthopedic is not comfortable Patient wanted to start semaglutide but that is back ordered We talked about phentermine and Topamax today after discussing the side effects I am going to start her on both medications Patient is willing to come in for monthly evaluation Blood pressure is stable patient is on lisinopril tolerating medication Lipid disorder:? Continue atorvastatin 40 mg labs done recently reviewed Patient goes to pain management for left side lumbar pain and sciatica management She has had MRIs done and was getting cortisone injection which has not helped I have been providing script for Percocet for pain management. For some reason patient's insurance is not covering more than 7 days of script so this time I have ordered to be taken every 6 hours so she can at least have 28 tablets for next 3 months, patient says that the medication does help with the pain. She is taking only 1 2 or 3 times a week She is aware of side effects of narcotics BMI is above 40 Patient is to return in 4 weeks for weight management Labs done recently reviewed with the patient her fasting sugar came back at 01:04 patient is prediabetic She is also on duloxetine as a mood stabilizer and pain management [facility] Medical History Osteoarthritis Elevated cholesterol HTN (hypertension) Endometrial cancer Lumbar spondylosis Surgical History History of lithotripsy Hx of bilateral cataract extraction History of fusion of cervical spine History of carpal tunnel release History of colonoscopy History of hysterectomy for cancer Family History Father Pancreatic cancer Mother No problems noted. Sister Diabetes mellitus Sister Epilepsy Sister Epilepsy Sister Breast cancer Sister No problems noted. Maternal Grandfather Unknown family medical history Maternal Grandmother Unknown family medical history Paternal Grandfather No problems noted. Paternal Grandmother Unknown family medical history Social History Housing: House Alcohol intake: never Patient Tobacco Use Status: Current everyday Tobacco user Tobacco use type: Cigarette Cigarettes Per Day: 10 Years Smoked: 35 e-Cigarette/Vaping Use: Never Used Current occupational status: employed Cognitive needs: No Hearing needs: Yes Vision needs: No Female Reproductive History Menstrual Age of Menarche: 11 Questionnaire Thrive Questionnaire Date Thrive assessed: 06/27/22 HANH-7 AMB Questionnaire HANH-7 Date HANH - 7 assessed: 12/25/22 Source: Developed by Drs. Lennox Liao, Lennie Flores, Yemi Deluca and colleagues, with an educational gina from [employer]. Review of Systems Const Denies chills and Denies fever(s) ENT Denies epistaxis and Denies nasal discharge Card Denies chest pain Resp Denies chest congestion, Denies cough and Denies hemoptysis GI Denies diarrhea and Denies nausea Skin/Breast Denies rash Neuro Reports no additional complaints Psych Reports no additional complaints Endo Reports no additional complaints Physical exam (Primary Care) Vital Signs: Last Vital Signs Pulse 105 H 11/13/23 14:05 BP 126/82 11/13/23 14:05 Pulse Ox 96 11/13/23 14:05 Oxygen Delivery Method Room Air 11/13/23 14:05 BMI result Body Mass Index 423.2 Tobacco/Smoking Status: Tobacco use Status Tobacco use date assessed 11/13/23 11/13/23 14:08 Patient Tobacco Use Status Current everyday Tobacco 11/13/23 14:08 Tobacco use type Cigarette 11/13/23 14:08 e-Cigarette/Vaping Use Never Used 11/13/23 14:08 Thrive Assessment: Date of Thrive Assessment Date Thrive assessed 06/27/22 11/13/23 14:08 Const General: cooperative, comfortable and no acute distress Orientation/consciousness: patient oriented x3 HENMT Head: Yes normocephalic Eyes General: appearance normal, both eyes and all related structures Neck Neck: Yes supple Resp Effort & Inspection: normal respiratory effort, no cough and no stridor Cardio Rhythm: regular rhythm Heart sounds: S1 normal heart sound present and S2 normal heart sound present Skin General skin exam: turgor normal Neuro General: patient oriented x3, tone normal and moves all extremities Extrem Right lower extremity: no edema Left lower extremity: no edema Assessment and Plan Assessment & Plan (1) Hypertension, essential: Code(s): I10 - Essential (primary) hypertension (2) Lipid disorder: Code(s): E78.9 - Disorder of lipoprotein metabolism, unspecified (3) Morbid obesity due to excess calories: Code(s): E66.01 - Morbid (severe) obesity due to excess calories (4) Generalized osteoarthritis: Code(s): M15.9 - Polyosteoarthritis, unspecified (5) Lumbar spondylosis: Code(s): M47.816 - Spondylosis without myelopathy or radiculopathy, lumbar region (6) Mood disorder: Code(s): F39 - Unspecified mood [affective] disorder (7) Sciatica, left side: Code(s): M54.32 - Sciatica, left side Plan Patient is a 63-year-old female who is struggling with her weight Patient have severe osteoarthritis in her knees and chronic back pain She would like to have knee replacement surgery but because of her weight orthopedic is not comfortable Patient wanted to start semaglutide but that is back ordered We talked about phentermine and Topamax today after discussing the side effects I am going to start her on both medications Patient is willing to come in for monthly evaluation Blood pressure is stable patient is on lisinopril tolerating medication Lipid disorder:? Continue atorvastatin 40 mg labs done recently reviewed Patient goes to pain management for left side lumbar pain and sciatica management She has had MRIs done and was getting cortisone injection which has not helped I have been providing script for Percocet for pain management. For some reason patient's insurance is not covering more than 7 days of script so this time I have ordered to be taken every 6 hours so she can at least have 28 tablets for next 3 months, patient says that the medication does help with the pain. She is taking only 1 2 or 3 times a week She is aware of side effects of narcotics BMI is above 40 Patient is to return in 4 weeks for weight management Labs done recently reviewed with the patient her fasting sugar came back at 01:04 patient is prediabetic She is also on duloxetine as a mood stabilizer and pain management Medications: New phentermine must administer 2 hours after breakfast 15 mg PO DAILY 30 caps 0RF topiramate (Topamax) 25 mg PO DAILY 30 caps 0RF Changed From oxycodone-acetaminophen 5-325 mg (Percocet) Partial Fill upon patient request. other rosario fill whole script 1 tab PO ONCE 7 days PRN 7 tabs 0RF pain To oxycodone-acetaminophen 5-325 mg (Percocet) Partial Fill upon patient request. other rosario fill whole script 1 tab PO Q6H 7 days PRN 28 tabs 0RF pain Discontinued Wegovy (semaglutide (weight loss)) administer weeks 1 through 4 of therapy Discontinued Reason: Doctor's Order 0.25 mg (0.5 mL) subcut QWEEK 2 mL 0RF NS Coding Level of Care Code Est Pt Level 4 (82721) Diagnoses Hypertension, essential I10 Lipid disorder E78.9 Morbid obesity due to excess calories E66.01 Generalized osteoarthritis M15.9 Lumbar spondylosis M47.816 Mood disorder F39 Sciatica, left side M54.32
== END 2023-11-13 14:33 | disposition home or self-care (01) ==
PROVIDERS: PCP Internal Medicine; Visit Provider Internal Medicine
DX: I10 Essential (primary) hypertension (principal); E66.01 Morbid (severe) obesity due to excess calories; F39 Unspecified mood [affective] disorder; Z68.41 Body mass index [BMI] 40.0-44.9, adult; E78.9 Disorder of lipoprotein metabolism, unspecified; M15.9 Polyosteoarthritis, unspecified; M47.816 Spondylosis without myelopathy or radiculopathy, lumbar region; M54.32 Sciatica, left side
CPT/HCPCS: 99214

== ENCOUNTER 2023-12-11 11:55 | Outpatient (AMB) | payer OTHER, SELFPAY ==
--- NOTE | 2023-12-11 12:03 | A.OFFVIS_ITS ---
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 No complaints. Last Pap/HPV was in 2014 was negative , the patient is status post radical hysterectomy BSO in 2016 for endometrial adenocarcinoma Last Mammogram was in 05/24 was BI-RADS 1 Last Colonoscopy was in 11/22 [facility] Medical History Osteoarthritis Elevated cholesterol HTN (hypertension) Endometrial cancer Lumbar spondylosis Surgical History History of lithotripsy Hx of bilateral cataract extraction History of fusion of cervical spine History of carpal tunnel release History of colonoscopy History of hysterectomy for cancer Family History Father Pancreatic cancer Mother No problems noted. Sister Diabetes mellitus Sister Epilepsy Sister Epilepsy Sister Breast cancer Sister No problems noted. Maternal Grandfather Unknown family medical history Maternal Grandmother Unknown family medical history Paternal Grandfather No problems noted. 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 Sexual orientation: Straight/Heterosexual Gender identity: Female Cognitive needs: No Hearing needs: Yes Vision needs: No Female Reproductive History Menstrual Age of Menarche: 11 Menopause type: surgical Total pregnancies: 0 Date of Mammogram: 05/30/23 Review of Systems Const All systems reviewed & are unremarkable except as noted in HPI and below Card Reports as per HPI and Reports no additional complaints Resp Reports as per HPI and Reports no additional complaints GI Reports as per HPI and Reports no additional complaints Reports as per HPI Physical Exam Vital Signs: BMI result Body Mass Index 40.7 Const General: cooperative, healthy appearing and comfortable General: Yes bladder normal to palpation External Female Exam: No lesion Speculum Exam - Vagina: normal appearance of the vagina, normal vaginal discharge and not erythematous Speculum Exam - Cervix: Cervix absent Bimanual exam- vagina & uterus: bladder normal to palpation and uterus absent Bimanual Exam- Adnexa, other: Other (No masses detected) Assessment & Plan Assessment & Plan (1) Well woman exam: Code(s): Z01.419 - Encounter for gynecological examination (general) (routine) without abnormal findings Plan: Co testing not indicated status post radical hysterectomy for endometrial cancer in 2017. Counseled the patient about the recommended dietary allowance of 1200 mg of Calcium & 600 IU of vitamin D. Instructions given the patient to schedule next screen Mammogram in 05/25. The patient was instructed to perform monthly self-breast exams and schedule annual exam in a year. All questions answered and the patient verbalized understanding. Coding Level of Care Code Est Pt Prev Care 40-64y(60312) Diagnoses Well woman exam Z01.419
[2023-12-11 12:05] VITALS: BP 136/80; BMI 40.7
== END 2023-12-11 12:30 | disposition home or self-care (01) ==
LOC: HO.HWS 11:55
PROVIDERS: PCP Internal Medicine; Visit Provider Obstetrics & Gynecology
DX: Z01.419 Encounter for gynecological examination (general) (routine) without abnormal findings (principal)
CPT/HCPCS: 99396

== ENCOUNTER → 2023-12-11 11:55 | Outpatient (BNVA) | payer OTHER, SELFPAY | PROVIDERS: PCP Internal Medicine; Visit Provider Obstetrics & Gynecology ==

== ENCOUNTER 2023-12-18 12:20 | Outpatient (AMB) | payer OTHER, SELFPAY ==
[2023-12-18 12:24] VITALS: BP 134/68; PULSE 106; O2SAT 96; BMI 40.4
--- NOTE | 2023-12-18 12:24 | A.OFFPC_ITS ---
Vital Signs 12/18/23 12:24 Height 5 ft 6 in Weight 250 lb 2 oz BMI 40.4 BP 134/68 Blood Pressure Location Rt brachial Position Sitting Pulse 106 H Pulse Source Pulse Oximeter Pulse Oximetry (%) 96 Oxygen Delivery Method Room Air Intake Visit Reasons: 4 Month follow up Allergies Antihistamines - Alkylamine [ANTIHISTAMINES - ALKYLAMINE] Adverse Reaction (Intermediate, Verified 12/11/23 12:06) TACHYCARDIA Medication List - Last Reconciled 12/18/23 by Kathleen Vizcarra MD atorvastatin 40 mg PO DAILY duloxetine 30 mg PO BID lisinopril 20 mg PO DAILY oxycodone-acetaminophen 5-325 mg (Percocet) 1 tab PO Q6H PRN 7 days phentermine 15 mg PO DAILY tizanidine 4 mg PO BEDTIME PRN NS topiramate (Topamax) 25 mg PO DAILY Tobacco use date assessed: 12/18/23 Dental Screening Dental Screen Date: 12/18/23 Did you have a dental visit in the last 12 months?: Yes Did you have a dental problem in the last 6 months where you did not have access to dental care?: No Was dental information given to patient?: Patient has dentist HPI 4 Month follow up HPI Details Patient is a 63-year-old female came in today for monthly visit after starting phentermine and Topamax to lose weight Patient is doing well she was able to lose 12 lb since November 13 She is eating healthy making healthy food choices Tolerating medication no side effects no lightheadedness no palpitation no chest pain no headache no nausea vomiting Phentermine and Topamax sent for another month Patient is also requesting script for oxycodone that she takes for her knee pain which I have sent. Follow-up 4 weeks [facility] Medical History Osteoarthritis Elevated cholesterol HTN (hypertension) Endometrial cancer Lumbar spondylosis Surgical History History of lithotripsy Hx of bilateral cataract extraction History of fusion of cervical spine History of carpal tunnel release History of colonoscopy History of hysterectomy for cancer Family History Father Pancreatic cancer Mother No problems noted. Sister Diabetes mellitus Sister Epilepsy Sister Epilepsy Sister Breast cancer Sister No problems noted. Maternal Grandfather Unknown family medical history Maternal Grandmother Unknown family medical history Paternal Grandfather No problems noted. 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 How often do you have a drink containing alcohol?: Never 3. How often do you have six or more drinks on one occasion?: Never Total Score: 0 Score Reviewed/Action Taken: Yes HANH-7 AMB Questionnaire HANH-7 Date HANH - 7 assessed: 12/25/22 Source: Developed by Drs. Lennox Liao, Lennie Flores, Yemi Deluca and colleagues, with an educational gina from [employer]. Review of Systems Const Denies chills and Denies fever(s) ENT Denies epistaxis and Denies nasal discharge Card Denies chest pain Resp Denies chest congestion, Denies cough and Denies hemoptysis GI Denies diarrhea and Denies nausea Skin/Breast Denies rash Neuro Reports no additional complaints Psych Reports no additional complaints Endo Reports no additional complaints Physical exam (Primary Care) Vital Signs: Last Vital Signs Pulse 106 H 12/18/23 12:24 BP 134/68 12/18/23 12:24 Pulse Ox 96 12/18/23 12:24 Oxygen Delivery Method Room Air 12/18/23 12:24 BMI result Body Mass Index 40.4 Tobacco/Smoking Status: Tobacco use Status Tobacco use date assessed 12/18/23 12/18/23 12:26 Patient Tobacco Use Status Current everyday Tobacco 12/18/23 12:26 Tobacco use type Cigarette 12/18/23 12:26 e-Cigarette/Vaping Use Never Used 12/18/23 12:26 Thrive Assessment: Date of Thrive Assessment Date Thrive assessed 06/27/22 12/18/23 12:26 Const General: cooperative, comfortable and no acute distress Orientation/consciousness: patient oriented x3 HENMT Head: Yes normocephalic Eyes General: appearance normal, both eyes and all related structures Neck Neck: Yes supple Resp Effort & Inspection: normal respiratory effort, no cough and no stridor Cardio Rhythm: regular rhythm Heart sounds: S1 normal heart sound present and S2 normal heart sound present Skin General skin exam: turgor normal Neuro General: patient oriented x3, tone normal and moves all extremities Extrem Right lower extremity: no edema Left lower extremity: no edema Assessment and Plan Assessment & Plan (1) Morbid obesity due to excess calories: Code(s): E66.01 - Morbid (severe) obesity due to excess calories (2) Sciatica, left side: Code(s): M54.32 - Sciatica, left side (3) Pain management: Code(s): R52 - Pain, unspecified (4) Generalized osteoarthritis: Code(s): M15.9 - Polyosteoarthritis, unspecified (5) Osteoarthritis of left knee: Code(s): M17.12 - Unilateral primary osteoarthritis, left knee Qualifiers: Osteoarthritis type: primary Qualified Code(s): M17.12 - Unilateral primary osteoarthritis, left knee Plan Patient is a 63-year-old female came in today for monthly visit after starting phentermine and Topamax to lose weight Patient is doing well she was able to lose 12 lb since November 13 She is eating healthy making healthy food choices Tolerating medication no side effects no lightheadedness no palpitation no chest pain no headache no nausea vomiting Phentermine and Topamax sent for another month Patient is also requesting script for oxycodone that she takes for her knee pain which I have sent. Follow-up 4 weeks Medications: Refilled oxycodone-acetaminophen 5-325 mg (Percocet) Partial Fill upon patient request. other rosario fill whole script 1 tab PO Q6H PRN 28 tabs 0RF pain 7 days phentermine must administer 2 hours after breakfast 15 mg PO DAILY 30 caps 0RF topiramate (Topamax) 25 mg PO DAILY 30 caps 0RF Coding Level of Care Code Est Pt Level 3 (30323) Diagnoses Morbid obesity due to excess calories E66.01 Sciatica, left side M54.32 Pain management R52 Generalized osteoarthritis M15.9 Primary osteoarthritis of left knee M17.12 Osteoarthritis type: primary
== END 2023-12-18 12:46 | disposition home or self-care (01) ==
LOC: HO.HMGC 12:20
PROVIDERS: PCP Internal Medicine; Visit Provider Internal Medicine
DX: M54.32 Sciatica, left side (principal); E66.01 Morbid (severe) obesity due to excess calories; Z68.41 Body mass index [BMI] 40.0-44.9, adult; M15.9 Polyosteoarthritis, unspecified; M17.12 Unilateral primary osteoarthritis, left knee
CPT/HCPCS: 99213

== ENCOUNTER 2024-01-22 13:19 | Outpatient (AMB) | payer OTHER, SELFPAY ==
--- NOTE | 2024-01-22 13:21 | MHC.PC.OV ---
Vital Signs 01/22/24 13:22 Height 5 ft 6 in Weight 245 lb 6 oz BMI 39.6 BP 126/80 Blood Pressure Location Rt brachial Position Sitting Pulse 90 Pulse Source Pulse Oximeter Pulse Oximetry (%) 95 Oxygen Delivery Method Room Air Intake Visit Reasons: one month fu Allergies Antihistamines - Alkylamine [ANTIHISTAMINES - ALKYLAMINE] Adverse Reaction (Intermediate, Verified 01/22/24 13:22) TACHYCARDIA Medication List - Last Reconciled 01/22/24 by Kathleen Vizcarra MD atorvastatin 40 mg PO DAILY duloxetine 30 mg PO BID lisinopril 20 mg PO DAILY oxycodone-acetaminophen 5-325 mg (Percocet) 1 tab PO Q6H PRN 7 days phentermine 15 mg PO DAILY tizanidine 4 mg PO BEDTIME PRN NS topiramate (Topamax) 25 mg PO DAILY Tobacco use date assessed: 01/22/24 Dental Screening Dental Screen Date: 01/22/24 Did you have a dental visit in the last 12 months?: Yes Did you have a dental problem in the last 6 months where you did not have access to dental care?: No Was dental information given to patient?: Patient has dentist HPI one month fu HPI Details Patient is a 63-year-old female who struggling it the failed back syndrome Was helping her sister and worsened her back pain She takes oxycodone as needed for pain I have sent the refill Patient was able to lose more weight on phentermine and Topamax From 250 lb 2 oz on December 18 2245 lb 6 oz today Patient is tolerating medication no side effects I have sent phentermine 37.5 mg and Topamax 50 mg this time Patient will return in 4 weeks for re-evaluation [facility] Medical History Osteoarthritis Elevated cholesterol HTN (hypertension) Endometrial cancer Lumbar spondylosis Surgical History History of lithotripsy Hx of bilateral cataract extraction History of fusion of cervical spine History of carpal tunnel release History of colonoscopy History of hysterectomy for cancer Family History Father Pancreatic cancer Mother No problems noted. Sister Diabetes mellitus Sister Epilepsy Sister Epilepsy Sister Breast cancer Sister No problems noted. Maternal Grandfather Unknown family medical history Maternal Grandmother Unknown family medical history Paternal Grandfather No problems noted. 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 Lennox Liao, Lennie Flores, Yemi Deluca and colleagues, with an educational gina from [employer]. Review of Systems Const Denies chills and Denies fever(s) ENT Denies epistaxis and Denies nasal discharge Card Denies chest pain Resp Denies chest congestion, Denies cough and Denies hemoptysis GI Denies diarrhea and Denies nausea Skin/Breast Denies rash Neuro Reports no additional complaints Psych Reports no additional complaints Endo Reports no additional complaints Physical exam (Primary Care) Vital Signs: Last Vital Signs Pulse 90 01/22/24 13:22 BP 126/80 01/22/24 13:22 Pulse Ox 95 01/22/24 13:22 Oxygen Delivery Method Room Air 01/22/24 13:22 BMI result Body Mass Index 41.1 Tobacco/Smoking Status: Tobacco use Status Tobacco use date assessed 01/22/24 01/22/24 13:27 Patient Tobacco Use Status Current everyday Tobacco 01/22/24 13:27 Tobacco use type Cigarette 01/22/24 13:27 e-Cigarette/Vaping Use Never Used 01/22/24 13:27 Thrive Assessment: Date of Thrive Assessment Date Thrive assessed 06/27/22 01/22/24 13:27 Const General: cooperative, comfortable and no acute distress Orientation/consciousness: patient oriented x3 HENMT Head: Yes normocephalic Eyes General: appearance normal, both eyes and all related structures Neck Neck: Yes supple Resp Effort & Inspection: normal respiratory effort, no cough and no stridor Cardio Rhythm: regular rhythm Heart sounds: S1 normal heart sound present and S2 normal heart sound present Skin General skin exam: turgor normal Neuro General: patient oriented x3, tone normal and moves all extremities Extrem Right lower extremity: no edema Left lower extremity: no edema Assessment and Plan Assessment & Plan (1) Morbid obesity due to excess calories: Code(s): E66.01 - Morbid (severe) obesity due to excess calories (2) Sciatica, left side: Code(s): M54.32 - Sciatica, left side (3) Pain management: Code(s): R52 - Pain, unspecified Plan Patient is a 63-year-old female who struggling it the failed back syndrome Was helping her sister and worsened her back pain She takes oxycodone as needed for pain I have sent the refill Patient was able to lose more weight on phentermine and Topamax From 250 lb 2 oz on December 185 lb 6 oz today Patient is tolerating medication no side effects I have sent phentermine 37.5 mg and Topamax 50 mg this time Patient has osteoarthritis as well as rheumatoid arthritis, she is going to make a follow-up appointment with the exhaust worker [facility] she tells me Patient will return in 4 weeks for re-evaluation Medications: Changed From phentermine must administer 2 hours after breakfast 15 mg PO DAILY 30 caps 0RF To phentermine must administer 2 hours after breakfast 37.5 mg PO DAILY 30 days 30 caps 0RF From topiramate (Topamax) 25 mg PO DAILY 30 caps 0RF To topiramate (Topamax) 50 mg (2 x 25 mg) PO DAILY 30 days 60 caps 0RF Refilled oxycodone-acetaminophen 5-325 mg (Percocet) Partial Fill upon patient request. other rosario fill whole script 1 tab PO Q6H 7 days PRN 28 tabs 0RF pain Discontinued nirmatrelvir-ritonavir 300 mg (150 mg x 2)-100 mg Discontinued Reason: Patient Completed Course take TWO 150 mg tablets of nirmatrelvir with ONE 100 mg tablet of ritonavir twice daily for 5 days PO 30 tabs 0RF Coding Level of Care Code Est Pt Level 3 (39732) Diagnoses Morbid obesity due to excess calories E66.01 Sciatica, left side M54.32 Pain management R52
[2024-01-22 13:22] VITALS: BP 126/80; PULSE 90; O2SAT 95; BMI 39.6
== END 2024-01-22 14:28 | disposition home or self-care (01) ==
PROVIDERS: PCP Internal Medicine; Visit Provider Internal Medicine
DX: M54.32 Sciatica, left side (principal); E66.01 Morbid (severe) obesity due to excess calories; Z68.39 Body mass index [BMI] 39.0-39.9, adult
CPT/HCPCS: 99213

== ENCOUNTER 2024-02-11 14:10 | Outpatient (AMB) | payer OTHER, SELFPAY ==
[2024-02-11 14:26] VITALS: BP 118/68; PULSE 96; O2SAT 97; BMI 38.6
--- NOTE | 2024-02-11 14:26 | MHC.OFFVIS ---
Intake Vital Signs 02/11/24 14:26 Height 5 ft 6 in Weight 239 lb 6.752 oz BMI 38.6 BP 118/68 Blood Pressure Location Lt brachial Position Sitting Pulse 96 Pulse Source Pulse Oximeter Pulse Oximetry (%) 97 Oxygen Delivery Method Room Air Intake Visit Reasons: LBP Intake Note: Patient last seen 08/02/23 presents today for follow up. 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 Required: No Accompanied by: Self / Same As Patient Allergies Antihistamines - Alkylamine [ANTIHISTAMINES - ALKYLAMINE] Adverse Reaction (Intermediate, Verified 02/11/24 14:33) TACHYCARDIA Medication List - Last Reconciled 02/11/24 by Yaron Adler MD atorvastatin 40 mg PO DAILY duloxetine 30 mg PO BID lisinopril 20 mg PO DAILY oxycodone-acetaminophen 5-325 mg (Percocet) 1 tab PO Q6H PRN 7 days phentermine 37.5 mg PO DAILY 30 days tizanidine 4 mg PO BEDTIME PRN NS topiramate (Topamax) 50 mg (2 x 25 mg) PO DAILY 30 days HPI HPI Comments History of Present Illness Details 63-year-old female with generalized osteoarthritis presents for follow-up. She states that recently she has noticed that she gets bilateral and finger pain and stiffness. She takes Tylenol Arthritis twice daily as needed for different joint pains. She takes Percocet only when absolutely needed. She was unable to get Wejovy. He was recently started on phentermine by her PCP and lost about 20 lb. Previous history: Patient states that she was told she needs left knee replacement. She was told however that she will need to lose 50 lb before she can proceed with the procedure. She was evaluated by weight management and she was told that the recommended surgery would be a gastric bypass which she is not interested in. She is on the wait list for Wegovy. Continues to have low back pain, she was evaluated by spine surgeon and surgery was suggested and she was told she would have about 65% success rate and will need 6 weeks of rehab. Patient does not want to go through with the surgery at this point. Continues to get injections in her spine which last 6-7 weeks, she gets them every 3 months. She gets intermittent aches and pains in her hands, but nothing different from before. [facility] Medical History Osteoarthritis Elevated cholesterol HTN (hypertension) Endometrial cancer Lumbar spondylosis Surgical History History of lithotripsy Hx of bilateral cataract extraction History of fusion of cervical spine History of carpal tunnel release History of colonoscopy History of hysterectomy for cancer Family History Father Pancreatic cancer Mother No problems noted. Sister Diabetes mellitus Sister Epilepsy Sister Epilepsy Sister Breast cancer Sister No problems noted. Maternal Grandfather Unknown family medical history Maternal Grandmother Unknown family medical history Paternal Grandfather No problems noted. 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 Sexual orientation: Straight/Heterosexual Gender identity: Female Cognitive needs: No Hearing needs: Yes Vision needs: No Female Reproductive History Menstrual Age of Menarche: 11 Review of Systems Musc Reports back pain, Reports arthralgias and Reports stiffness Physical Exam Vital Signs: Last Vital Signs Pulse 96 02/11/24 14:26 BP 118/68 02/11/24 14:26 Pulse Ox 97 02/11/24 14:26 Oxygen Delivery Method Room Air 02/11/24 14:26 BMI result Body Mass Index 38.6 Const General: cooperative, healthy appearing and comfortable Nutritional Appearance: obese morbidly obese Orientation/consciousness: patient oriented x3 Limitations: no limitations HEENT Head: Yes normocephalic and Yes atraumatic Resp Effort & Inspection: normal respiratory effort and able to speak in complete sentences Neuro General: patient oriented x3 Extrem Other: Osteoarthritic changes of both hands with prominent Heberden's nodes, some are slightly tender No active synovitis Assessment & Plan Assessment & Plan (1) Osteoarthritis of hands, bilateral: Code(s): M19.041 - Primary osteoarthritis, right hand; M19.042 - Primary osteoarthritis, left hand Qualifiers: Osteoarthritis type: primary Qualified Code(s): M19.041 - Primary osteoarthritis, right hand; M19.042 - Primary osteoarthritis, left hand Plan: Discussed nature of hand osteoarthritis and different treatment strategies. Advised patient to try taking Tylenol Arthritis up to 3000 mg daily. Apply Voltaren gel on painful joints. Can use NSAIDs sparingly. I referred patient to occupational therapy. Follow-up as needed Plan I spent 16 minutes reviewing patient's chart, evaluating patient, counseling patient and documenting in the chart Orders: Orders OT Evaluation and Treatment Today M19.041 - Primary osteoarthritis, right hand, M19.042 - Primary osteoarthritis, left hand Coding Level of Care Code Est Pt Level 3 (91514) Diagnoses Primary osteoarthritis of both hands M19.041; M19.042 Osteoarthritis type: primary
== END 2024-02-11 15:03 | disposition home or self-care (01) ==
PROVIDERS: PCP Internal Medicine; Visit Provider Student in an Organized Health Care Education/Training Program
DX: M19.041 Primary osteoarthritis, right hand (principal); M19.042 Primary osteoarthritis, left hand
CPT/HCPCS: 99213

== ENCOUNTER → 2024-02-11 14:10 | Outpatient (BNVA) | payer OTHER, SELFPAY | PROVIDERS: PCP Internal Medicine; Visit Provider Student in an Organized Health Care Education/Training Program ==

== ENCOUNTER 2024-02-18 11:53 | Outpatient (AMB) | payer OTHER, SELFPAY ==
--- NOTE | 2024-02-18 12:04 | MHC.PC.OV ---
Vital Signs 02/18/24 12:06 Height 5 ft 6 in Weight 237 lb 6 oz BMI 38.3 BP 128/72 Blood Pressure Location Rt brachial Position Sitting Pulse 82 Pulse Source Pulse Oximeter Pulse Oximetry (%) 97 Oxygen Delivery Method Room Air Intake Visit Reasons: 4 week follow up Allergies Antihistamines - Alkylamine [ANTIHISTAMINES - ALKYLAMINE] Adverse Reaction (Intermediate, Verified 02/18/24 12:04) TACHYCARDIA Medication List - Last Reconciled 02/18/24 by Kathleen Vizcarra MD atorvastatin 40 mg PO DAILY duloxetine 30 mg PO BID lisinopril 20 mg PO DAILY oxycodone-acetaminophen 5-325 mg (Percocet) 1 tab PO Q6H PRN 7 days phentermine 37.5 mg PO DAILY 30 days tizanidine 4 mg PO BEDTIME PRN NS topiramate (Topamax) 50 mg (2 x 25 mg) PO DAILY 30 days Tobacco use date assessed: 02/18/24 Dental Screening Dental Screen Date: 02/18/24 Did you have a dental visit in the last 12 months?: Yes Did you have a dental problem in the last 6 months where you did not have access to dental care?: No Was dental information given to patient?: Patient has dentist HPI 4 week follow up HPI Details Patient is a 63-year-old female came in today for her monthly weight loss visit Patient is on phentermine 37.5 mg and Topamax 50 mg daily She has made further progress, weight is 237 today it was 245 lb 4 weeks ago. BMI has gone down to 38.3 from 39.6 Patient is tolerating medication, have slight diarrhea but manageable Patient has osteoarthritis as well as rheumatoid arthritis, Requesting refill on Percocet which I have sent for her Patient is going away for seminar she will return in 2 months now, she will call in 4 weeks for medication refill [facility] Medical History Osteoarthritis Elevated cholesterol HTN (hypertension) Endometrial cancer Lumbar spondylosis Surgical History History of lithotripsy Hx of bilateral cataract extraction History of fusion of cervical spine History of carpal tunnel release History of colonoscopy History of hysterectomy for cancer Family History Father Pancreatic cancer Mother No problems noted. Sister Diabetes mellitus Sister Epilepsy Sister Epilepsy Sister Breast cancer Sister No problems noted. Maternal Grandfather Unknown family medical history Maternal Grandmother Unknown family medical history Paternal Grandfather No problems noted. 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 How often do you have a drink containing alcohol?: Never 3. How often do you have six or more drinks on one occasion?: Never Total Score: 0 Score Reviewed/Action Taken: Yes HANH-7 AMB Questionnaire HANH-7 Date HANH - 7 assessed: 12/25/22 Source: Developed by Drs. Lennox Liao, Lennie Flores, Yemi Deluca and colleagues, with an educational gina from [employer]. Review of Systems Const Denies chills and Denies fever(s) ENT Denies epistaxis and Denies nasal discharge Card Denies chest pain Resp Denies chest congestion, Denies cough and Denies hemoptysis GI Denies diarrhea and Denies nausea Skin/Breast Denies rash Neuro Reports no additional complaints Psych Reports no additional complaints Endo Reports no additional complaints Physical exam (Primary Care) Vital Signs: Last Vital Signs Pulse 82 02/18/24 12:06 BP 128/72 02/18/24 12:06 Pulse Ox 97 02/18/24 12:06 Oxygen Delivery Method Room Air 02/18/24 12:06 BMI result Body Mass Index 38.3 Tobacco/Smoking Status: Tobacco use Status Tobacco use date assessed 02/18/24 02/18/24 12:09 Patient Tobacco Use Status Current everyday Tobacco 02/18/24 12:09 Tobacco use type Cigarette 02/18/24 12:09 e-Cigarette/Vaping Use Never Used 02/18/24 12:09 Thrive Assessment: Date of Thrive Assessment Date Thrive assessed 06/27/22 02/18/24 12:09 Const General: cooperative, comfortable and no acute distress Orientation/consciousness: patient oriented x3 HENMT Head: Yes normocephalic Eyes General: appearance normal, both eyes and all related structures Neck Neck: Yes supple Resp Effort & Inspection: normal respiratory effort, no cough and no stridor Cardio Rhythm: regular rhythm Heart sounds: S1 normal heart sound present and S2 normal heart sound present Skin General skin exam: turgor normal Neuro General: patient oriented x3, tone normal and moves all extremities Extrem Right lower extremity: no edema Left lower extremity: no edema Assessment and Plan Assessment & Plan (1) Morbid obesity due to excess calories: Code(s): E66.01 - Morbid (severe) obesity due to excess calories (2) Pain management: Code(s): R52 - Pain, unspecified (3) Generalized osteoarthritis: Code(s): M15.9 - Polyosteoarthritis, unspecified Plan Patient is a 63-year-old female came in today for her monthly weight loss visit Patient is on phentermine 37.5 mg and Topamax 50 mg daily She has made further progress, weight is 237 today it was 245 lb 4 weeks ago. BMI has gone down to 38.3 from 39.6 Patient is tolerating medication, have slight diarrhea but manageable Patient has osteoarthritis as well as rheumatoid arthritis, Requesting refill on Percocet which I have sent for her Patient is going away for seminar she will return in 2 months now, she will call in 4 weeks for medication refill Medications: Refilled topiramate (Topamax) 50 mg (2 x 25 mg) PO DAILY 30 days 60 caps 0RF oxycodone-acetaminophen 5-325 mg (Percocet) Partial Fill upon patient request. other rosario fill whole script 1 tab PO Q6H 7 days PRN 28 tabs 0RF pain phentermine must administer 2 hours after breakfast 37.5 mg PO DAILY 30 days 30 caps 0RF Coding Level of Care Code Est Pt Level 3 (11858) Diagnoses Morbid obesity due to excess calories E66.01 Pain management R52 Generalized osteoarthritis M15.9
[2024-02-18 12:06] VITALS: BP 128/72; PULSE 82; O2SAT 97; BMI 38.3
== END 2024-02-18 12:17 | disposition home or self-care (01) ==
PROVIDERS: PCP Internal Medicine; Visit Provider Internal Medicine
DX: R52 Pain, unspecified (principal); E66.01 Morbid (severe) obesity due to excess calories; Z68.38 Body mass index [BMI] 38.0-38.9, adult; M15.9 Polyosteoarthritis, unspecified
CPT/HCPCS: 99213

== ENCOUNTER 2024-04-16 09:23 | Outpatient (REF) | payer OTHER, SELFPAY ==
[2024-04-16 10:11] LABS: MANUAL DIFF FLAG NO
[2024-04-16 10:19] LABS: Basophils Absolute Auto 0.1 X10*3/uL (0.0-0.2); Basophils Percent Auto 0.4 % (0-2); Eosinophils Absolute Auto 0.1 X10*3/uL (0.0-0.4); Eosinophils Percent Auto 0.5 % (0-4); Hematocrit 45.5 % (37.0-47.0); Hemoglobin 15.1 g/dl (12.0-16.0); Imm Gran Abs Auto 0.06 X10*3/uL (0.00-0.03); Imm Gran Pct Auto 0.5 % (0.0-0.4); Lymphocytes Absolute Auto 3.4 X10*3/uL (1.2-4.9); Lymphocytes Percent Auto 25.9 % (20-40); Mean Corpuscular HGB Conc 33.2 g/dl (31.0-35.0); Mean Corpuscular Hemoglobin 32.9 pg (27.0-33.0); Mean Corpuscular Volume 99.1 fL (80.0-98.0); Mean Platelet Volume 9.8 fL (9.4-12.3); Monocytes Absolute Auto 0.9 X10*3/uL (0.1-1.2); Neutrophils Absolute Auto 8.6 x10*3/uL (2.0-8.3); Neutrophils Percent Auto 65.7 % (45-73); Platelet Count 320 X10*3/uL (160-400); Red Blood Count 4.59 X10*6/uL (4.20-5.50)
[2024-04-16 11:03] LABS: Alanine Aminotransferase 21 U/L (0-31); Albumin Level 4.3 g/dL (3.5-5.0); Alkaline Phosphatase 95 U/L (39-117); Anion Gap 14 (12-20); Aspartate Amino Transferase 18 U/L (5-31); Bilirubin Total 0.5 mg/dL (0.0-1.0); Blood Urea Nitrogen 11 mg/dL (9-16); Calcium 9.5 mg/dL (8.4-10.2); Carbon Dioxide 26 mmol/L (22-29); Chloride 107 mmol/L (96-108); Estimated Glomerular Filt Rate > 60; Glucose Random 86 mg/dL (60-115); Potassium 3.9 mmol/L (3.3-5.1); Sodium 143 mmol/L (135-145)
== END 2024-04-16 09:24 | disposition home or self-care (01) ==
LOC: HO.HMGCLDS 09:23
PROVIDERS: PCP Internal Medicine; Visit Provider Internal Medicine
DX: I10 Essential (primary) hypertension (principal); E78.9 Disorder of lipoprotein metabolism, unspecified; E66.01 Morbid (severe) obesity due to excess calories
CPT/HCPCS: 36415; 80053; 85025

== ENCOUNTER 2024-04-17 10:30 | Outpatient (AMB) | payer OTHER, SELFPAY ==
[2024-04-17 10:34] VITALS: BP 128/74; PULSE 79; O2SAT 96; BMI 35.5
--- NOTE | 2024-04-17 10:34 | MHC.PC.OV ---
Vital Signs 04/17/24 10:34 Height 5 ft 6 in Weight 220 lb 4 oz BMI 35.5 BP 128/74 Blood Pressure Location Rt brachial Position Sitting Pulse 79 Pulse Source Pulse Oximeter Pulse Oximetry (%) 96 Oxygen Delivery Method Room Air Intake Visit Reasons: 2 month follow up Allergies Antihistamines - Alkylamine [ANTIHISTAMINES - ALKYLAMINE] Adverse Reaction (Intermediate, Verified 04/17/24 10:38) TACHYCARDIA Medication List - Last Reconciled 04/17/24 by Kathleen Vizcarra MD atorvastatin 40 mg PO DAILY duloxetine 30 mg PO BID lisinopril 20 mg PO DAILY oxycodone-acetaminophen 5-325 mg (Percocet) 1 tab PO Q6H PRN 7 days phentermine 37.5 mg PO DAILY 30 days tizanidine 4 mg PO BEDTIME PRN NS topiramate (Topamax) 50 mg (2 x 25 mg) PO DAILY 30 days Tobacco use date assessed: 04/17/24 Dental Screening Dental Screen Date: 04/17/24 Did you have a dental visit in the last 12 months?: Yes Did you have a dental problem in the last 6 months where you did not have access to dental care?: No Was dental information given to patient?: Patient has dentist HPI 2 month follow up HPI Details Patient is 63-year-old female with a history of smoking, allergies, obesity, lipid disorder, hypertension, osteoarthritis knees Came in today for follow-up appointment Patient is currently on phentermine 37.5 mg and Topamax 50 mg daily She is doing well and is losing weight since January of this year patient has lost 17 lb She stopped taking medication in March as she was having palpitations, patient is doing well now, she says that she has a history of palpitations and always been told they are benign I am reducing the dose of phentermine 15 mg she can give it a try again and if started having palpitation she knows she need to stop Patient is also wheezing today and she is taking no inhalers She has a long history of tobacco use, most likely has COPD She also have allergies but can not take antihistamine as they trigger her tachycardia. [facility] Medical History Osteoarthritis Elevated cholesterol HTN (hypertension) Endometrial cancer Lumbar spondylosis Surgical History History of lithotripsy Hx of bilateral cataract extraction History of fusion of cervical spine History of carpal tunnel release History of colonoscopy History of hysterectomy for cancer Family History Father Pancreatic cancer Mother No problems noted. Sister Diabetes mellitus Sister Epilepsy Sister Epilepsy Sister Breast cancer Sister No problems noted. Maternal Grandfather Unknown family medical history Maternal Grandmother Unknown family medical history Paternal Grandfather No problems noted. 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 How often do you have a drink containing alcohol?: Never 3. How often do you have six or more drinks on one occasion?: Never Total Score: 0 Score Reviewed/Action Taken: Yes HANH-7 AMB Questionnaire HANH-7 Date HANH - 7 assessed: 12/25/22 Source: Developed by Drs. Lennox Liao, Lennie Flores, Yemi Deluca and colleagues, with an educational gina from [employer]. Review of Systems Const Denies chills and Denies fever(s) ENT Denies epistaxis and Denies nasal discharge Card Denies chest pain Resp Denies chest congestion, Denies cough and Denies hemoptysis GI Denies diarrhea and Denies nausea Skin/Breast Denies rash Neuro Reports no additional complaints Psych Reports no additional complaints Endo Reports no additional complaints Physical exam (Primary Care) Vital Signs: Last Vital Signs Pulse 79 04/17/24 10:34 BP 128/74 04/17/24 10:34 Pulse Ox 96 04/17/24 10:34 Oxygen Delivery Method Room Air 04/17/24 10:34 BMI result Body Mass Index 35.5 Tobacco/Smoking Status: Tobacco use Status Tobacco use date assessed 04/17/24 04/17/24 10:38 Patient Tobacco Use Status Current everyday Tobacco 04/17/24 10:38 Tobacco use type Cigarette 04/17/24 10:38 e-Cigarette/Vaping Use Never Used 04/17/24 10:38 Thrive Assessment: Date of Thrive Assessment Date Thrive assessed 06/27/22 04/17/24 10:38 Const General: cooperative, comfortable and no acute distress Orientation/consciousness: patient oriented x3 HENMT Head: Yes normocephalic Eyes General: appearance normal, both eyes and all related structures Neck Neck: Yes supple Resp Effort & Inspection: normal respiratory effort, no cough and no stridor Cardio Rhythm: regular rhythm Heart sounds: S1 normal heart sound present and S2 normal heart sound present Skin General skin exam: turgor normal Neuro General: patient oriented x3, tone normal and moves all extremities Extrem Right lower extremity: no edema Left lower extremity: no edema Assessment and Plan Assessment & Plan (1) Morbid obesity due to excess calories: Code(s): E66.01 - Morbid (severe) obesity due to excess calories (2) Pain management: Code(s): R52 - Pain, unspecified (3) Generalized osteoarthritis: Code(s): M15.9 - Polyosteoarthritis, unspecified (4) Tobacco dependence: Code(s): F17.200 - Nicotine dependence, unspecified, uncomplicated (5) Wheezing: Code(s): R06.2 - Wheezing (6) Environmental allergies: Code(s): Z91.09 - Other allergy status, other than to drugs and biological substances (7) Intermittent palpitations: Code(s): R00.2 - Palpitations (8) Hypertension, essential: Code(s): I10 - Essential (primary) hypertension (9) Lipid disorder: Code(s): E78.9 - Disorder of lipoprotein metabolism, unspecified Plan Patient is 63-year-old female with a history of smoking, allergies, obesity, lipid disorder, hypertension, osteoarthritis knees Came in today for follow-up appointment Patient is currently on phentermine 37.5 mg and Topamax 50 mg daily She is doing well and is losing weight since January of this year patient has lost 17 lb She stopped taking medication in March as she was having palpitations, patient is doing well now, she says that she has a history of palpitations and always been told they are benign I am reducing the dose of phentermine 15 mg she can give it a try again and if started having palpitation she knows she need to stop Patient is also wheezing today and she is taking no inhalers She has a long history of tobacco use, most likely has COPD She also have allergies but can not take antihistamine as they trigger her tachycardia. Medications: New fluticasone propion-salmeterol 250-50 mcg/dose (Wixela Inhub) 1 inh inhalation BID 30 days 60 ea 0RF Changed From phentermine must administer 2 hours after breakfast 15 mg PO DAILY 30 caps 0RF To phentermine must administer 2 hours after breakfast 15 mg PO DAILY 30 days 30 caps 0RF Refilled topiramate (Topamax) 50 mg (2 x 25 mg) PO DAILY 30 days 60 caps 0RF Discontinued phentermine must administer 2 hours after breakfast Discontinued Reason: Change Referral Type 37.5 mg PO DAILY 30 days 30 caps 0RF Coding Level of Care Code Est Pt Level 4 (67207) Diagnoses Morbid obesity due to excess calories E66.01 Pain management R52 Generalized osteoarthritis M15.9 Tobacco dependence F17.200 Wheezing R06.2 Environmental allergies Z91.09 Intermittent palpitations R00.2 Hypertension, essential I10 Lipid disorder E78.9
== END 2024-04-17 10:53 | disposition home or self-care (01) ==
PROVIDERS: PCP Internal Medicine; Visit Provider Internal Medicine
DX: R52 Pain, unspecified (principal); E66.01 Morbid (severe) obesity due to excess calories; M15.9 Polyosteoarthritis, unspecified; Z68.35 Body mass index [BMI] 35.0-35.9, adult; F17.210 Nicotine dependence, cigarettes, uncomplicated; R06.2 Wheezing; Z91.09 Other allergy status, other than to drugs and biological substances; R00.2 Palpitations; I10 Essential (primary) hypertension; E78.9 Disorder of lipoprotein metabolism, unspecified
CPT/HCPCS: 99214

== ENCOUNTER 2024-05-11 12:25 | Outpatient (AMB) | payer OTHER, SELFPAY ==
[2024-05-11 12:50] VITALS: BP 122/78; PULSE 93; TEMP 36.4; O2SAT 98; BMI 34.9
--- NOTE | 2024-05-11 12:50 | MHC.OFFWIV ---
Intake Vital Signs 05/11/24 12:50 Height 5 ft 6 in Weight 216 lb BMI 34.9 BP 122/78 Blood Pressure Location Lt brachial Position Sitting Pulse 93 Pulse Source Pulse Oximeter Temp 97.6 F Temp Source Temporal Artery Scan Pulse Oximetry (%) 98 Oxygen Delivery Method Room Air Intake Visit Reasons: EP heart palpitation/Chest pain Intake Note: pt is here today for heart palpitation and chest pain started 1 month Patient Tobacco Use Status: Current everyday Tobacco user Allergies Antihistamines - Alkylamine [ANTIHISTAMINES - ALKYLAMINE] Adverse Reaction (Intermediate, Verified 05/11/24 12:54) TACHYCARDIA Do you need a note to return to daycare/school/sports/work: No HPI HPI Comments History of Present Illness Details Patient is a 63-year-old female who is here complaining of heart palpitations. On April 17, she saw her primary care doctor, who lowered her phentermine dose from 37.5 mg daily to 15 mg daily. She states she took a few pills but her heart palpitations persisted so she stopped taking them 12 days ago but her heart palpitations are continuing. She states they are worse when she is sitting or laying down and better with movement. She denies any chest pain or shortness of breath or dizziness. [facility] Medical History Osteoarthritis Elevated cholesterol HTN (hypertension) Endometrial cancer Lumbar spondylosis Surgical History History of lithotripsy Hx of bilateral cataract extraction History of fusion of cervical spine History of carpal tunnel release History of colonoscopy History of hysterectomy for cancer Family History Father Pancreatic cancer Mother No problems noted. Sister Diabetes mellitus Sister Epilepsy Sister Epilepsy Sister Breast cancer Sister No problems noted. Maternal Grandfather Unknown family medical history Maternal Grandmother Unknown family medical history Paternal Grandfather No problems noted. 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 Sexual orientation: Straight/Heterosexual Gender identity: Female Cognitive needs: No Hearing needs: Yes Vision needs: No Female Reproductive History Menstrual Age of Menarche: 11 Review of Systems Const All systems reviewed & are unremarkable except as noted in HPI and below Physical Exam Vital Signs: Last Vital Signs Temp 97.6 F 05/11/24 12:50 Pulse 93 05/11/24 12:50 BP 122/78 05/11/24 12:50 Pulse Ox 98 05/11/24 12:50 Oxygen Delivery Method Room Air 05/11/24 12:50 BMI result Body Mass Index 34.9 Const General: cooperative, healthy appearing, comfortable, no acute distress and well developed Orientation/consciousness: patient oriented x3 Limitations: no limitations HEENT Head: Yes normal to inspection Eyes General: appearance normal, both eyes and all related structures Neck Neck: Yes normal visual inspection and Yes full ROM Resp Effort & Inspection: normal respiratory effort and able to speak in complete sentences Auscultation: clear to auscultation bilaterally Cardio Rate: regular rate Rhythm: regular rhythm Heart sounds: normal S1 and S2 Skin General skin exam: no rashes or lesions noted Neuro General: patient oriented x3 Extrem General: Yes normal to inspection Office Procedures EKG [id number], Complete Results Reviewed Results Reviewed: Labs from April 15 are all WNL Assessment & Plan Assessment & Plan (1) Heart palpitations: Code(s): R00.2 - Palpitations Plan: VSS, EKG in office was normal sinus rhythm; patient already has an appointment with her PCP in 4 days where she can follow-up and get further management, TSH, holter monitor, etc... Gave patient red flag warning signs and when to seek emergent medical care or call 911. Plan see above Coding Level of Care Code Est Pt Level 3 (94075) Diagnoses Heart palpitations R00.2 CPT Codes EKG - CPT: 79583-[id number], Complete ([id number])
== END 2024-05-11 14:03 | disposition home or self-care (01) ==
PROVIDERS: PCP Internal Medicine; Visit Provider Physician Assistant
DX: R00.2 Palpitations (principal)
CPT/HCPCS: 93000; 99213

== ENCOUNTER 2024-05-12 08:56 | Outpatient (REF) | payer OTHER, SELFPAY ==
--- NOTE | ~2024-05-12 | XR_ITS ---
EXAMINATION: XR KNEE, LEFT CLINICAL INFORMATION: Pain in left knee. COMPARISON: None available. TECHNIQUE: Three views of the left knee. FINDINGS: Advanced degenerative changes in the medial and patellofemoral compartments with hypertrophic change and narrowing. Moderate lateral marginal osteophytes. XR/XR knee LT 3V IMPRESSION: Advanced degenerative changes.
== END 2024-05-12 08:57 | disposition home or self-care (01) ==
LOC: HO.HOSX 08:56
PROVIDERS: Visit Provider Orthopaedic Surgery
DX: M25.562 Pain in left knee (principal)
CPT/HCPCS: 73562

== ENCOUNTER 2024-05-12 14:07 | Outpatient (AMB) | payer OTHER, SELFPAY ==
--- NOTE | 2024-05-12 14:16 | A.OFFVIS_ITS ---
Vital Signs 05/12/24 14:17 Height 5 ft 6 in Weight 216 lb BMI 34.9 Intake Visit Reasons: new pt - left knee pain Intake Note: Lluvia is a 63 year old female who presents today with complaints of progressively worsening left knee pain. She describes her pain as sharp and severe in nature. Her pain has gotten worse over the last few years in spite of continued non operative treatments. She has had cortisone injections in the past. The most recent injection gave her minimal relief. She has also had viscosupplementation injections which gave her fairly good relief. She has done physical therapy exercises which aggravated her pain. She has also tried Tylenol and anti-inflammatory medicines which gave her minimal relief. She would like to hold off on left total knee replacement surgery for as long as possible. Allergies Antihistamines - Alkylamine [ANTIHISTAMINES - ALKYLAMINE] Adverse Reaction (Intermediate, Verified 05/12/24 14:18) TACHYCARDIA Medication List - Last Reconciled 05/12/24 by Brant Smith MD atorvastatin 40 mg PO DAILY budesonide-formoterol 160-4.5 mcg/actuation (Symbicort) 2 puffs inhalation BID 30 days lisinopril 20 mg PO DAILY oxycodone-acetaminophen 5-325 mg (Percocet) 1 tab PO Q6H PRN 7 days phentermine 15 mg PO DAILY 30 days tizanidine 4 mg PO BEDTIME PRN NS topiramate (Topamax) 50 mg (2 x 25 mg) PO DAILY 30 days PFSH Medical History Osteoarthritis Elevated cholesterol HTN (hypertension) Endometrial cancer Lumbar spondylosis Surgical History History of lithotripsy Hx of bilateral cataract extraction History of fusion of cervical spine History of carpal tunnel release History of colonoscopy History of hysterectomy for cancer Family History Father Pancreatic cancer Mother No problems noted. Sister Diabetes mellitus Sister Epilepsy Sister Epilepsy Sister Breast cancer Sister No problems noted. Maternal Grandfather Unknown family medical history Maternal Grandmother Unknown family medical history Paternal Grandfather No problems noted. 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 Sexual orientation: Straight/Heterosexual Gender identity: Female Cognitive needs: No Hearing needs: Yes Vision needs: No Female Reproductive History Menstrual Age of Menarche: 11 Physical Exam Vital Signs: BMI result Body Mass Index 34.9 Const Other: Well-nourished well-developed very friendly female awake alert and oriented x3 in no acute distress Extrem Other: Bilateral lower extremity examination shows good capillary refill, no skin les ions noted, normal sensation light touch Left knee examination shows a minimal effusion, palpable crepitus with range of motion, pain with range of motion, no instability Results Reviewed Results Reviewed: X-rays of the patient's left knee show joint space narrowing, subchondral sclerosis, no acute bony abnormalities Assessment & Plan Assessment & Plan (1) Osteoarthritis of left knee: Code(s): M17.12 - Unilateral primary osteoarthritis, left knee Category: Medical Qualifiers: Osteoarthritis type: primary Qualified Code(s): M17.12 - Unilateral primary osteoarthritis, left knee Plan Ms. Griffin presents with progressively worsening left knee pain due to degenerative joint disease. I had a lengthy discussion with the patient regarding the treatment options. She wishes hold off on total knee replacement surgery for as long as possible. I agree with this plan. She has not gotten good relief from cortisone injections in the past. Thus, I will see whether not her insurance company will cover a viscosupplementation injection. I will see her back once the injection is available. Feel free to call me at any time should questions regarding her orthopedic management arise. I spent 20 minutes in reviewing the patient's records and imaging studies, seeing the patient and documenting in the medical record. Orders: Orders XR knee LT 3V 05/12/24 M25.562 - Pain in left knee Coding Level of Care Code New Pt Level 3 (43157) Diagnoses Primary osteoarthritis of left knee M17.12 Osteoarthritis type: primary
[2024-05-12 14:17] VITALS: BMI 34.9
== END 2024-05-12 14:49 | disposition home or self-care (01) ==
PROVIDERS: PCP Internal Medicine; Visit Provider Orthopaedic Surgery
DX: M17.12 Unilateral primary osteoarthritis, left knee (principal)
CPT/HCPCS: 99203

== ENCOUNTER 2024-05-15 11:53 | Outpatient (AMB) | payer OTHER, SELFPAY ==
--- NOTE | 2024-05-15 11:54 | A.OFFPC_ITS ---
Vital Signs 05/15/24 11:57 Height 5 ft 6 in Weight 217 lb BMI 35.0 BP 118/70 Blood Pressure Location Rt brachial Position Sitting Pulse 80 Pulse Source Pulse Oximeter Pulse Oximetry (%) 99 Oxygen Delivery Method Room Air Intake Visit Reasons: 4 week follow up Allergies Antihistamines - Alkylamine [ANTIHISTAMINES - ALKYLAMINE] Adverse Reaction (Intermediate, Verified 05/15/24 11:57) TACHYCARDIA Medication List - Last Reconciled 05/15/24 by Kathleen Vizcarra MD atorvastatin 40 mg PO DAILY budesonide-formoterol 160-4.5 mcg/actuation (Symbicort) 2 puffs inhalation BID 30 days lisinopril 20 mg PO DAILY oxycodone-acetaminophen 5-325 mg (Percocet) 1 tab PO Q6H PRN 7 days tizanidine 4 mg PO BEDTIME PRN NS Wegovy (semaglutide (weight loss)) 0.25 mg (0.5 mL) subcut QWEEK NS Tobacco use date assessed: 04/17/24 Dental Screening Dental Screen Date: 04/17/24 HPI 4 week follow up HPI Details Patient is 63-year-old female She was taking phentermine for weight loss and has lost more than 5% of her baseline weight She used to weigh 264 lb and she weighs 217 lb today However phentermine started causing palpitations so she had to stop. Patient would like to go on semaglutide injection now but insurance is not approving We will get the prior authorization for the patient as she is doing so well She is in a process of getting knee replacement left side, she had a visit with orthopedic and will be getting a gel injection as a trial Otherwise patient will have a knee replacement She is trying to exercise but due to knee pain patient is limited We talked about swimming today. She will return in 3 months for follow-up Meanwhile I have sent a script of oxycodone for her [facility] Medical History Osteoarthritis Elevated cholesterol HTN (hypertension) Endometrial cancer Lumbar spondylosis Surgical History History of lithotripsy Hx of bilateral cataract extraction History of fusion of cervical spine History of carpal tunnel release History of colonoscopy History of hysterectomy for cancer Family History Father Pancreatic cancer Mother No problems noted. Sister Diabetes mellitus Sister Epilepsy Sister Epilepsy Sister Breast cancer Sister No problems noted. Maternal Grandfather Unknown family medical history Maternal Grandmother Unknown family medical history Paternal Grandfather No problems noted. 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 Lennox Liao, Lennie Flores, Yemi Deluca and colleagues, with an educational gina from [employer]. Review of Systems Const Denies chills and Denies fever(s) ENT Denies epistaxis and Denies nasal discharge Card Denies chest pain Resp Denies chest congestion, Denies cough and Denies hemoptysis GI Denies diarrhea and Denies nausea Skin/Breast Denies rash Neuro Reports no additional complaints Psych Reports no additional complaints Endo Reports no additional complaints Physical exam (Primary Care) Vital Signs: Last Vital Signs Pulse 80 05/15/24 11:57 BP 118/70 05/15/24 11:57 Pulse Ox 99 05/15/24 11:57 Oxygen Delivery Method Room Air 05/15/24 11:57 BMI result Body Mass Index 35.0 Tobacco/Smoking Status: Tobacco use Status Tobacco use date assessed 04/17/24 05/15/24 11:55 Patient Tobacco Use Status Current everyday Tobacco 05/15/24 11:55 Tobacco use type Cigarette 05/15/24 11:55 e-Cigarette/Vaping Use Never Used 05/15/24 11:55 Thrive Assessment: Date of Thrive Assessment Date Thrive assessed 06/27/22 05/15/24 11:55 Const General: cooperative, comfortable and no acute distress Orientation/consciousness: patient oriented x3 HENMT Head: Yes normocephalic Eyes General: appearance normal, both eyes and all related structures Neck Neck: Yes supple Resp Effort & Inspection: normal respiratory effort, no cough and no stridor Cardio Rhythm: regular rhythm Heart sounds: S1 normal heart sound present and S2 normal heart sound present Skin General skin exam: turgor normal Neuro General: patient oriented x3, tone normal and moves all extremities Extrem Right lower extremity: no edema Left lower extremity: no edema Assessment and Plan Assessment & Plan (1) Morbid obesity due to excess calories: Code(s): E66.01 - Morbid (severe) obesity due to excess calories (2) Pain management: Code(s): R52 - Pain, unspecified (3) Generalized osteoarthritis: Code(s): M15.9 - Polyosteoarthritis, unspecified (4) Tobacco dependence: Code(s): F17.200 - Nicotine dependence, unspecified, uncomplicated (5) Environmental allergies: Code(s): Z91.09 - Other allergy status, other than to drugs and biological substances (6) Intermittent palpitations: Code(s): R00.2 - Palpitations (7) Hypertension, essential: Code(s): I10 - Essential (primary) hypertension (8) Lipid disorder: Code(s): E78.9 - Disorder of lipoprotein metabolism, unspecified Plan Patient is 63-year-old female She was taking phentermine for weight loss and has lost more than 5% of her baseline weight She used to weigh 264 lb and she weighs 217 lb today However phentermine started causing palpitations so she had to stop. Patient would like to go on semaglutide injection now but insurance is not approving We will get the prior authorization for the patient as she is doing so well She is in a process of getting knee replacement left side, she had a visit with orthopedic and will be getting a gel injection as a trial Otherwise patient will have a knee replacement She is trying to exercise but due to knee pain patient is limited We talked about swimming today. She will return in 3 months for follow-up Meanwhile I have sent a script of oxycodone for her Medications: Refilled oxycodone-acetaminophen 5-325 mg (Percocet) Partial Fill upon patient request. other rosario fill whole script 1 tab PO Q6H PRN 28 tabs 0RF pain 7 days Coding Level of Care Code Est Pt Level 4 (32552) Diagnoses Morbid obesity due to excess calories E66.01 Pain management R52 Generalized osteoarthritis M15.9 Tobacco dependence F17.200 Environmental allergies Z91.09 Intermittent palpitations R00.2 Hypertension, essential I10 Lipid disorder E78.9
[2024-05-15 11:57] VITALS: BP 118/70; PULSE 80; O2SAT 99; BMI 35.0
== END 2024-05-15 12:34 | disposition home or self-care (01) ==
PROVIDERS: PCP Internal Medicine; Visit Provider Internal Medicine
DX: R52 Pain, unspecified (principal); E66.01 Morbid (severe) obesity due to excess calories; M15.9 Polyosteoarthritis, unspecified; Z68.35 Body mass index [BMI] 35.0-35.9, adult; F17.210 Nicotine dependence, cigarettes, uncomplicated; Z91.09 Other allergy status, other than to drugs and biological substances; R00.2 Palpitations; I10 Essential (primary) hypertension; E78.9 Disorder of lipoprotein metabolism, unspecified
CPT/HCPCS: 99214

== ENCOUNTER 2024-06-23 12:44 | Outpatient (AMB) | payer OTHER, SELFPAY ==
--- NOTE | 2024-06-23 12:45 | MHC.OFFVIS ---
Intake Visit Reasons: INJ- LT knee Durolane injection Intake Note: Lulvia is a 63 year old female who presents today with complaints of progressively worsening left knee pain. She describes her pain as sharp and severe in nature. Her pain has gotten worse over the last few years in spite of continued non operative treatments. She has had cortisone injections in the past. The most recent injection gave her minimal relief. She has also had viscosupplementation injections which gave her fairly good relief. She has done physical therapy exercises which aggravated her pain. She has also tried Tylenol and anti-inflammatory medicines which gave her minimal relief. She would like to hold off on left total knee replacement surgery for as long as possible. Allergies Antihistamines - Alkylamine [ANTIHISTAMINES - ALKYLAMINE] Adverse Reaction (Intermediate, Verified 06/23/24 12:45) TACHYCARDIA Medication List - Last Reconciled 06/23/24 by Brant Smith MD atorvastatin 40 mg PO DAILY budesonide-formoterol 160-4.5 mcg/actuation (Symbicort) 2 puffs inhalation BID 30 days lisinopril 20 mg PO DAILY oxycodone-acetaminophen 5-325 mg (Percocet) 1 tab PO Q6H PRN 7 days Wegovy (semaglutide (weight loss)) 0.5 mg subcut QWEEK 90 days NS PFSH Medical History Osteoarthritis Elevated cholesterol HTN (hypertension) Endometrial cancer Lumbar spondylosis Surgical History History of lithotripsy Hx of bilateral cataract extraction History of fusion of cervical spine History of carpal tunnel release History of colonoscopy History of hysterectomy for cancer Family History Father Pancreatic cancer Mother No problems noted. Sister Diabetes mellitus Sister Epilepsy Sister Epilepsy Sister Breast cancer Sister No problems noted. Maternal Grandfather Unknown family medical history Maternal Grandmother Unknown family medical history Paternal Grandfather No problems noted. 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 Sexual orientation: Straight/Heterosexual Gender identity: Female Cognitive needs: No Hearing needs: Yes Vision needs: No Female Reproductive History Menstrual Age of Menarche: 11 Physical Exam Const Other: Well-nourished well-developed very friendly female awake alert and oriented x3 in no acute distress Extrem Other: Bilateral lower extremity examination shows good capillary refill, no skin lesions noted, normal sensation light touch Left knee examination shows a minimal effusion, palpable crepitus with range of motion, pain with range of motion, no instability Office Procedures Joint Injection/Drain Joint Injection/Drain Primary Site: left knee Prep: site was prepped using aseptic technique Injected: 60 mg of (Durolane viscosupplementation) and 1% plain lidocaine Procedure: The patient tolerated the procedure well Coding 47407 - Large joint Procedure code (CPT) selection complete Results Reviewed Results Reviewed: X-rays of the patient's left knee show joint space narrowing, subchondral sclerosis, no acute bony abnormalities Assessment & Plan Assessment & Plan (1) Osteoarthritis of left knee: Code(s): M17.12 - Unilateral primary osteoarthritis, left knee Category: Medical Qualifiers: Osteoarthritis type: primary Qualified Code(s): M17.12 - Unilateral primary osteoarthritis, left knee Plan Ms. Griffin presents with left knee pain due to degenerative joint disease. I had a lengthy discussion with the patient regarding the treatment options. She wishes to hold off on left total knee replacement surgery for as long as possible. I agree with this plan. She has not gotten good relief from cortisone injections in the past. Thus, we discuss the risks and benefits of a Durolane viscosupplementation injection. The patient wished to proceed. She tolerated the injection well. She will continue with her activity modifications. She will follow up with me on an as-needed basis should her symptoms not plateau at an unacceptable level over the next few months. Feel free to call me at any time should questions regarding her orthopedic management arise. I spent 22 minutes in reviewing the patient's records and imaging studies, seeing the patient and documenting in the medical record. Orders: Orders AMB Joint Injection/Aspiration Today M17.12 - Unilateral primary osteoarthritis, left knee Coding Level of Care Code Est Pt Level 3 (92901) Diagnoses Primary osteoarthritis of left knee M17.12 Osteoarthritis type: primary CPT Codes Coding - 87624 Large joint: 76560 - Large joint ([id number])
== END 2024-06-23 13:02 | disposition home or self-care (01) ==
PROVIDERS: PCP Internal Medicine; Visit Provider Orthopaedic Surgery
DX: M17.12 Unilateral primary osteoarthritis, left knee (principal)
CPT/HCPCS: 20610; 99213

== ENCOUNTER → 2024-06-23 12:44 | Outpatient (BNVA) | payer OTHER, SELFPAY | PROVIDERS: PCP Internal Medicine; Visit Provider Orthopaedic Surgery | DX: M17.12 Unilateral primary osteoarthritis, left knee (principal) | CPT/HCPCS: 20610; J7318 ==

== ENCOUNTER 2024-08-19 14:58 | Outpatient (AMB) | payer OTHER, SELFPAY ==
[2024-08-19 14:59] VITALS: BP 126/74; PULSE 87; O2SAT 98; BMI 34.9
--- NOTE | 2024-08-19 14:59 | A.OFFPC_ITS ---
Vital Signs 08/19/24 14:59 Height 5 ft 6 in Weight 216 lb 2 oz BMI 34.9 BP 126/74 Blood Pressure Location Lt brachial Position Sitting Pulse 87 Pulse Source Pulse Oximeter Pulse Oximetry (%) 98 Oxygen Delivery Method Room Air Intake Visit Reasons: 3 month follow up Allergies Antihistamines - Alkylamine [ANTIHISTAMINES - ALKYLAMINE] Adverse Reaction (Intermediate, Verified 08/19/24 15:00) TACHYCARDIA Medication List - Last Reconciled 08/19/24 by Kathleen Vizcarra MD atorvastatin 40 mg PO DAILY budesonide-formoterol 160-4.5 mcg/actuation (Symbicort) 2 puffs inhalation BID 3 months lisinopril 20 mg PO DAILY oxycodone-acetaminophen 5-325 mg (Percocet) 1 tab PO Q6H PRN 7 days semaglutide (weight loss) 1 mg (0.5 mL) subcut QWEEK 90 days Tobacco use date assessed: 08/19/24 Fall risk assessment: No Falls in past year Last assessed Fall Risk: 08/19/24 Dental Screening Dental Screen Date: 08/19/24 Did you have a dental visit in the last 12 months?: Yes Did you have a dental problem in the last 6 months where you did not have access to dental care?: No Was dental information given to patient?: Patient has dentist HPI 3 month follow up HPI Details Patient is 64-year-old female Came in today for three-month follow-up appointment Due for pain contract renewal Waiting for left knee replacement which is on hold due to her weight Pain is treated with Percocet from this office Pain contract was created today, refill sent for 20 tablets patient is taking it 1 or 2 a week She was taking phentermine for weight loss and has lost more than 5% of her baseline weight She used to weigh 264 lb she continued to be 216 lb now However phentermine started causing palpitations so she had to stop. Semaglutide injections were prescribed, she started them June of this year Tolerating medication no side effects Dose was increased recently to 1 mg injections, patient says that she feels that she is going to lose weight now Patient has anxiety disorder as well, she is complaining of feeling flutter in epigastric area which resolved with pressure EKG done today shows normal sinus rhythm no acute findings Patient was reassured Follow-up 3 months [facility] Medical History Osteoarthritis Elevated cholesterol HTN (hypertension) Endometrial cancer Lumbar spondylosis Surgical History History of lithotripsy Hx of bilateral cataract extraction History of fusion of cervical spine History of carpal tunnel release History of colonoscopy History of hysterectomy for cancer Family History Father Pancreatic cancer Mother No problems noted. Sister Diabetes mellitus Sister Epilepsy Sister Epilepsy Sister Breast cancer Sister No problems noted. Maternal Grandfather Unknown family medical history Maternal Grandmother Unknown family medical history Paternal Grandfather No problems noted. 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 1. Little interest or pleasure in doing things: not at all 2. Feeling down, depressed, or hopeless: not at all 3. Trouble falling or staying asleep, or sleeping too much: nearly every day 4. Feeling tired or having little energy: not at all 5. Poor appetite or overeating: not at all 6. Feeling bad about yourself - or that you are a failure or have let yourself or your family down: not at all 7. Trouble concentrating on things, such as reading the newspaper or watching television: not at all 8. Moving or speaking so slowly that other people could have noticed. Or the opposite - being so fidgety or restless that you have been moving around a lot more than usual: not at all 9. Thoughts that you would be better off or of hurting yourself in some way: not at all Total score: 3 Depression Screening Interpretation: Negative Depression Screening Done: Yes 66129 - PHQ-9 Billing: Yes Source: Developed by Drs. Lennox Liao, Lennie Flores, Yemi Deluca and colleagues, with an educational gina from [employer]. Thrive Questionnaire Date Thrive assessed: 08/19/24 I am a: Patient What is your living situation today?: I have a steady place to live Within the past 12 months, did the food you bought not last and you didn't have the money to get more?: Never true Within the past 12 months, did you worry whether your food would run out before you got money to buy more?: Never true Do you have trouble paying for medicines?: No Do you have trouble getting transportation to medical appointments?: No Do you have trouble paying your heating and electricity bill?: No Do you have trouble taking care of your child, family member or friend?: No Do you have trouble with day-to-day activities such as bathing, preparing meals, shopping, managing finances, etc.?: No Are you currently unemployed and looking for a job?: No Are you interested in more education?: No Please select the resources that you would like help with: None Currently or been in a relationship where the following occur: No concerns reported THRIVE Score: 0 AUDIT C Alcohol Use Questionnaire (AUDIT-C) 1. How often do you have a drink containing alcohol?: Monthly or less 2. How many drinks containing alcohol do you have on a typical day when you are drinking?: 1 or 2 3. How often do you have six or more drinks on one occasion?: Never Total Score: 1 Score Reviewed/Action Taken: Yes HANH-7 AMB Questionnaire HANH-7 Date HANH - 7 assessed: 08/19/24 Feeling nervous, anxious, or on edge: 0 = Not at all Not being able to stop or control worryin = Not at all Worrying too much about different things: 0 = Not at all Trouble relaxin = Not at all Being so restless that it is hard to sit still: 0 = Not at all Becoming easily annoyed or irritable: 0 = Not at all Feeling afraid as if something awful might happen: 0 = Not at all Total HANH-7 score (0-4 normal; 5-9 mild; 10-14 moderate; 15-21 severe): 0 Source: Developed by Drs. Lennox Liao, Lennie Flores, Yemi Deluca and colleagues, with an educational gina from [employer]. HANH-7 Assessment Billing HANH-7 Assessment Tool: HANH-7 Assessment 11598 Review of Systems Const Denies chills and Denies fever(s) ENT Denies epistaxis and Denies nasal discharge Card Denies chest pain Resp Denies chest congestion, Denies cough and Denies hemoptysis GI Denies diarrhea and Denies nausea Skin/Breast Denies rash Neuro Reports no additional complaints Psych Reports no additional complaints Endo Reports no additional complaints Physical exam (Primary Care) Vital Signs: Last Vital Signs Pulse 87 08/19/24 14:59 BP 126/74 08/19/24 14:59 Pulse Ox 98 08/19/24 14:59 Oxygen Delivery Method Room Air 08/19/24 14:59 BMI result Body Mass Index 34.9 Tobacco/Smoking Status: Tobacco use Status Tobacco use date assessed 08/19/24 08/19/24 15:03 Patient Tobacco Use Status Current everyday Tobacco 08/19/24 15:03 Tobacco use type Cigarette 08/19/24 15:03 e-Cigarette/Vaping Use Never Used 08/19/24 15:03 PHQ-9: PHQ-9 Score PHQ-9: Total score 3 08/19/24 15:31 Depression Screening Interpretation: Negative Thrive Assessment: Date of Thrive Assessment Date Thrive assessed 08/19/24 08/19/24 15:03 Currently or been in a relationship where the following occur: No concerns reported Const General: cooperative, comfortable and no acute distress Orientation/consciousness: patient oriented x3 HENPR Head: Yes normocephalic Eyes General: appearance normal, both eyes and all related structures Neck Neck: Yes supple Resp Effort & Inspection: normal respiratory effort, no cough and no stridor Cardio Rhythm: regular rhythm Heart sounds: S1 normal heart sound present and S2 normal heart sound present Skin General skin exam: turgor normal Neuro General: patient oriented x3, tone normal and moves all extremities Extrem Right lower extremity: no edema Left lower extremity: no edema Assessment and Plan Assessment & Plan (1) Hypertension, essential: Code(s): I10 - Essential (primary) hypertension (2) Obesity due to excess calories: Code(s): E66.09 - Other obesity due to excess calories Qualifiers: Obesity classification: adult class 1 (BMI 30 - 34.9) Serious obesity comorbidity presence: with serious comorbidity Body mass index: BMI 34.0-34.9 Qualified Code(s): E66.09 - Other obesity due to excess calories; Z68.34 - Body mass index [BMI] 34.0-34.9, adult (3) Lipid disorder: Code(s): E78.9 - Disorder of lipoprotein metabolism, unspecified (4) Generalized osteoarthritis: Code(s): M15.9 - Polyosteoarthritis, unspecified (5) Tobacco dependence: Code(s): F17.200 - Nicotine dependence, unspecified, uncomplicated (6) Environmental allergies: Code(s): Z91.09 - Other allergy status, other than to drugs and biological substances (7) Pain management: Code(s): R52 - Pain, unspecified (8) Intermittent palpitations: Code(s): R00.2 - Palpitations Plan Patient is 64-year-old female Came in today for three-month follow-up appointment Due for pain contract renewal Waiting for left knee replacement which is on hold due to her weight Pain is treated with Percocet from this office Pain contract was created today, refill sent for 20 tablets patient is taking it 1 or 2 a week She was taking phentermine for weight loss and has lost more than 5% of her baseline weight She used to weigh 264 lb she continued to be 216 lb now However phentermine started causing palpitations so she had to stop. Semaglutide injections were prescribed, she started them June of this year Tolerating medication no side effects Dose was increased recently to 1 mg injections, patient says that she feels that she is going to lose weight now Patient has anxiety disorder as well, she is complaining of feeling flutter in epigastric area which resolved with pressure EKG done today shows normal sinus rhythm no acute findings Patient was reassured Follow-up 3 months Medications: Refilled oxycodone-acetaminophen 5-325 mg (Percocet) Partial Fill upon patient request. other rosario fill whole script 1 tab PO Q6H 7 days PRN 28 tabs 0RF pain Coding Level of Care Code Est Pt Level 4 (02297) Diagnoses Hypertension, essential I10 Class 1 obesity due to excess calories with serious comorbidity and body mass index (BMI) of 34.0 to 34.9 in adult E66.09; Z68.34 Obesity classification: adult class 1 (BMI 30 - 34.9) Serious obesity comorbidity presence: with serious comorbidity Body mass index: BMI 34.0-34.9 Lipid disorder E78.9 Generalized osteoarthritis M15.9 Tobacco dependence F17.200 Environmental allergies Z91.09 Pain management R52 Intermittent palpitations R00.2 Additional Codes HANH-7 Assessment Billing - HANH-7 Assessment Tool: HANH-7 Assessment 08867 ([id number])
== END 2024-08-19 15:32 | disposition home or self-care (01) ==
PROVIDERS: PCP Internal Medicine; Visit Provider Internal Medicine
DX: I10 Essential (primary) hypertension (principal); E66.09 Other obesity due to excess calories; Z68.34 Body mass index [BMI] 34.0-34.9, adult; E78.9 Disorder of lipoprotein metabolism, unspecified; M15.9 Polyosteoarthritis, unspecified; F17.200 Nicotine dependence, unspecified, uncomplicated; Z91.09 Other allergy status, other than to drugs and biological substances; R52 Pain, unspecified; R00.2 Palpitations

== ENCOUNTER → 2024-08-19 14:58 | Outpatient (BNVA) | payer OTHER, SELFPAY | PROVIDERS: PCP Internal Medicine; Visit Provider Internal Medicine | DX: I10 Essential (primary) hypertension (principal); E66.09 Other obesity due to excess calories; Z68.34 Body mass index [BMI] 34.0-34.9, adult; E78.9 Disorder of lipoprotein metabolism, unspecified; M15.9 Polyosteoarthritis, unspecified; R52 Pain, unspecified; R00.2 Palpitations; F17.210 Nicotine dependence, cigarettes, uncomplicated; Z91.09 Other allergy status, other than to drugs and biological substances | CPT/HCPCS: 93005; 96127 ==

== ENCOUNTER 2024-09-24 13:14 | Outpatient (AMB) | payer OTHER, SELFPAY ==
--- NOTE | 2024-09-24 13:15 | MHC.OFFVIS ---
Intake Visit Reasons: Left knee pain Intake Note: Lluvia is a 64 year old female who presents with complaints of progressively worsening left knee pain. She describes her pain as sharp in nature. She has had cortisone injections which gave her temporary relief. She has also had Durolane viscosupplementation injections which gave her very good relief. She wishes to hold off on left total knee replacement surgery for as long as possible. She has done physical therapy exercises which aggravated her pain. She has also tried Tylenol and anti-inflammatory medicines which gave her minimal relief. Allergies Antihistamines - Alkylamine [ANTIHISTAMINES - ALKYLAMINE] Adverse Reaction (Intermediate, Verified 09/24/24 13:20) TACHYCARDIA Medication List - Last Reconciled 09/24/24 by Brant Smith MD atorvastatin 40 mg PO DAILY budesonide-formoterol 160-4.5 mcg/actuation (Symbicort) 2 puffs inhalation BID 3 months lisinopril 20 mg PO DAILY oxycodone-acetaminophen 5-325 mg (Percocet) 1 tab PO Q6H PRN 7 days semaglutide (weight loss) 1 mg (0.5 mL) subcut QWEEK 90 days PFSH Medical History Osteoarthritis Elevated cholesterol HTN (hypertension) Endometrial cancer Lumbar spondylosis Surgical History History of lithotripsy Hx of bilateral cataract extraction History of fusion of cervical spine History of carpal tunnel release History of colonoscopy History of hysterectomy for cancer Family History Father Pancreatic cancer Mother No problems noted. Sister Diabetes mellitus Sister Epilepsy Sister Epilepsy Sister Breast cancer Sister No problems noted. Maternal Grandfather Unknown family medical history Maternal Grandmother Unknown family medical history Paternal Grandfather No problems noted. 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 Sexual orientation: Straight/Heterosexual Gender identity: Female Cognitive needs: No Hearing needs: Yes Vision needs: No Female Reproductive History Menstrual Age of Menarche: 11 Physical Exam Const Other: Well-nourished well-developed very friendly female awake alert and oriented x3 in no acute distress Extrem Other: Bilateral lower extremity examination shows good capillary refill, no skin lesions noted, normal sensation light touch Left knee examination shows a minimal effusion, palpable crepitus with range of motion, pain with range of motion, no instability Office Procedures Joint Injection/Aspiration Joint Injection/Aspiration Primary Site: left knee Prep: site was prepped using aseptic technique Injected: 40 mg of, DepoMedrol and 1% plain lidocaine Procedure: The patient tolerated the procedure well Coding - Large joint Procedure code (CPT) selection complete Results Reviewed Results Reviewed: X-rays of the patient's left knee taken previously show joint space narrowing, subchondral sclerosis, no acute bony abnormalities Assessment & Plan Assessment & Plan (1) Arthritis of left knee: Code(s): M17.12 - Unilateral primary osteoarthritis, left knee Category: Medical (2) Left knee pain: Code(s): M25.562 - Pain in left knee Category: Medical Plan Ms. Griffin presents with left knee pain due to degenerative joint disease. I had a lengthy discussion with the patient regarding the treatment options. The risks and benefits of a left knee cortisone injection were discussed at length with the patient. The patient wished to proceed. She tolerated the injection well. If she does not get lasting relief from the cortisone injection therapy I will see whether or not her insurance company will cover a another Durolane viscosupplementation injection. I will see her back once the injection is available. Feel free to call me at any time should questions regarding her orthopedic management arise. I spent 22 minutes in reviewing the patient's records and imaging studies, seeing the patient and documenting in the medical record. Orders: Orders AMB Joint Injection/Aspiration Today M17.12 - Unilateral primary osteoarthritis, left knee Coding Level of Care Code Est Pt Level 3 (23737) Complex EM visit Add On G2211 Diagnoses Arthritis of left knee M17.12 Left knee pain M25.562 CPT Codes Coding - 81286 Large joint: 33725 - Large joint ([id number])
== END 2024-09-24 13:41 | disposition home or self-care (01) ==
PROVIDERS: PCP Internal Medicine; Visit Provider Orthopaedic Surgery
DX: M17.12 Unilateral primary osteoarthritis, left knee (principal)
CPT/HCPCS: 20610; 99213

== ENCOUNTER → 2024-09-24 13:14 | Outpatient (BNVA) | payer OTHER, SELFPAY | PROVIDERS: PCP Internal Medicine; Visit Provider Orthopaedic Surgery | DX: M17.12 Unilateral primary osteoarthritis, left knee (principal) | CPT/HCPCS: 20610; J1010; J2003 ==

== ENCOUNTER 2024-11-27 08:07 | Outpatient (REF) | payer OTHER, SELFPAY ==
[2024-11-27 10:04] LABS: MANUAL DIFF FLAG NO
[2024-11-27 10:13] LABS: Basophils Percent Auto 0.3 % (0-2); Eosinophils Absolute Auto 0.1 X10*3/uL (0.0-0.4); Eosinophils Percent Auto 0.6 % (0-4); Hematocrit 41.9 % (37.0-47.0); Imm Gran Abs Auto 0.06 X10*3/uL (0.00-0.03); Imm Gran Pct Auto 0.5 % (0.0-0.4); Lymphocytes Absolute Auto 4.2 X10*3/uL (1.2-4.9); Mean Corpuscular HGB Conc 33.4 g/dl (31.0-35.0); Mean Corpuscular Hemoglobin 33.2 pg (27.0-33.0); Mean Corpuscular Volume 99.3 fL (80.0-98.0); Mean Platelet Volume 9.2 fL (9.4-12.3); Monocytes Absolute Auto 0.8 X10*3/uL (0.1-1.2); Monocytes Percent Auto 6.9 % (2-11); Neutrophils Absolute Auto 6.5 x10*3/uL (2.0-8.3); Neutrophils Percent Auto 55.7 % (45-73); Platelet Count 295 X10*3/uL (160-400); Red Blood Count 4.22 X10*6/uL (4.20-5.50); Red Cell Distribution Width 13.3 % (11.0-16.0); White Blood Count 11.7 X10*3/uL (4.8-10.8)
[2024-11-27 10:57] LABS: Alanine Aminotransferase 28 U/L (0-31); Alkaline Phosphatase 88 U/L (39-117); Amylase 49 U/L (28-100); Anion Gap 11 (12-20); Aspartate Amino Transferase 22 U/L (5-31); Bilirubin Total 0.5 mg/dL (0.0-1.0); Blood Urea Nitrogen 14 mg/dL (9-16); Calcium 9.3 mg/dL (8.4-10.2); Carbon Dioxide 28 mmol/L (22-29); Chloride 106 mmol/L (96-108); Cholesterol 125 mg/dL (<200); Estimated Glomerular Filt Rate > 60; Glucose Fasting 88 mg/dL (60-99); HDL Cholesterol 57 mg/dL (>40); LDL Cholesterol Calculated 57 mg/dL (<100); Lipase 39 U/L (8-78); Potassium 4.9 mmol/L (3.3-5.1); Sodium 140 mmol/L (135-145); Total Protein 6.6 g/dL (6.5-8.0); Triglycerides 56 mg/dL (<150)
[2024-11-27 11:01] LABS: TSH reflex Free T4 2.14 uIU/mL (0.32-4.0)
[2024-11-30 11:58] LABS: Vitamin D 25-OH, D2 <4 ng/mL; Vitamin D 25-OH, D3 34 ng/mL; Vitamin D 25-OH, Total 34 ng/mL (30-100)
== END 2024-11-27 08:08 | disposition home or self-care (01) ==
LOC: HO.HMGCLDS 08:07
PROVIDERS: PCP Internal Medicine; Visit Provider Internal Medicine
DX: E66.09 Other obesity due to excess calories (principal); Z68.34 Body mass index [BMI] 34.0-34.9, adult; R00.2 Palpitations; F17.200 Nicotine dependence, unspecified, uncomplicated; F39 Unspecified mood [affective] disorder; I10 Essential (primary) hypertension; E78.9 Disorder of lipoprotein metabolism, unspecified
CPT/HCPCS: 36415; 80053; 80061; 82150; 82306; 83690; 84443; 85025

== ENCOUNTER 2024-12-01 09:56 | Outpatient (AMB) | payer OTHER, SELFPAY ==
[2024-12-01 09:57] VITALS: BP 120/72; PULSE 83; O2SAT 97; BMI 33.6
--- NOTE | 2024-12-01 09:57 | A.OFFPC_ITS ---
Vital Signs 12/01/24 09:57 Height 5 ft 6 in Weight 208 lb 2 oz BMI 33.6 BP 120/72 Blood Pressure Location Rt brachial Position Sitting Pulse 83 Pulse Source Pulse Oximeter Pulse Oximetry (%) 97 Oxygen Delivery Method Room Air Intake Visit Reasons: Annual visit Allergies Antihistamines - Alkylamine [ANTIHISTAMINES - ALKYLAMINE] Adverse Reaction (Intermediate, Verified 12/01/24 09:57) TACHYCARDIA Medication List - Last Reconciled 12/01/24 by Kathleen Vizcarra MD atorvastatin 40 mg PO DAILY budesonide-formoterol 160-4.5 mcg/actuation (Symbicort) 2 puffs inhalation BID 3 months lisinopril 20 mg PO DAILY oxycodone-acetaminophen 5-325 mg (Percocet) 1 tab PO Q6H PRN 7 days semaglutide (weight loss) 1.7 mg (0.75 mL) subcut QWEEK 90 days Tobacco use date assessed: 12/01/24 Fall risk assessment: No Falls in past year Last assessed Fall Risk: 12/01/24 Dental Screening Dental Screen Date: 12/01/24 Did you have a dental visit in the last 12 months?: Yes Did you have a dental problem in the last 6 months where you did not have access to dental care?: No Was dental information given to patient?: Patient has dentist HPI Annual visit HPI Details Patient is 64-year-old female came in today for physical examination - Chronic low back pain has been persist ent despite weight loss of over 50 pounds. - Pain has worsened recently, impacting daily activities such as standing stationary, washing dishes, and taking showers. - for the knee osteoarthritis interventi ons include gel shots, which were 85% effective but no longer covered by insurance. - Current management includes oxycodone; requires periodic refills due to increasing pain. - MRI performed in January 2023; consid ering surgical intervention but apprehensive about potential side effects and recovery. - The patient reports arthritis affectin g the hands and other joints, resulting in spasms and difficulty with fine motor tasks. - Weight management is continuing, with ongoing participation in the [place] program for weight loss. - Family history includes a sister with hydrocephalus who due to complications. Health Maintenance - Discussed weight management program, i ncluding participation in [place] for weight loss. - Colonoscopy last performed in [place], 2021 next 1 will be in 5 years from 2021 - Routine well-woman visits maintained rolando Suárez [facility] despite previous hysterectomy. - Patient informed about potential for t emporary hair loss due to significant weight reduction and expected stabilization. - mammogram up-to-date [place] of Care: Dr. Moreau orthopedic back specialist [facility] Pain management [facility] Medications - Oxycodone for chronic low back pain ma elina, 24 pills dispensed approximately every 2-3 months.. - Wegovy for weight management, currentl y at 1.7 mg with plans to increase to 2.4 mg. Employment - patient is employed Diagnostic results - MRI conducted in January 2023, showin g spinal condition needing surgical evaluation. - Last orthopedic injection performed in November for pain management. Review of Systems - Musculoskeletal: Reports worsening low back pain. - Integumentary: Reports hair loss secon jerson to weight loss. - Neurological: Reports joint spasms in hands. - Gastrointestinal: Denies nausea, vomit ing, diarrhea. - General: No fever no chills - Ear nose throat: No sore throat no hearing difficulty no ear pain - Cardiovascular: No syncope, no chest pain, no palpitations - Endocrine: No polyuria polydipsia no heat intolerance - Genitourinary: No dysuria - Skin: No new complaints Physical Exam General: Cooperative, healthy appearing, comfortable, no acute distress Orientation: Patient oriented x3 Limitations: Due to back pain and spasm in hands secondary to osteoarthritis small joints Head: Normal to inspection Ears: Within normal limit visually Nose: Normal external nose present Face and sinus: Normal facial exam Eyes: Appearance normal, extraocular movement intact pupils reactive Neck: Normal visual inspection and supple Respiratory: Normal respiratory effort and able to speak in complete sentences. Clear to auscultation, no stridor Cardiovascular: S1 and S2 GI: Normal to inspection. Soft to palpation and nontender Skin: Turgor normal, no acute findings Neuro: Patient oriented x3, motor sensory intact, balance intact, tandem pass Extremities: Normal to inspection, patient reports arthritis in multiple joints, particularly affecting the right hand with cramping and difficulty in movement. Patient Instructions - Continue current weight loss program a nd medications. Dose increased to 2.4 mg of Wegovy - Consider wearing a back brace during a ctivities requiring prolonged standing. - Follow up with pain management - Monitor and report any changes in symp toms or new concerns to the office. - Pickup medications from the pharmacy a s prescribed, including increased dose of Wegovy to 2.4 mg. - Return for follow-up in three months t o assess progress -referral placed to Neurosurgery [facility] for 2nd opinion seconda ry to sciatica and lumbar pain Labs were done recently reviewed Follow-up 3 months Medication refills sent [facility] Medical History Osteoarthritis Elevated cholesterol HTN (hypertension) Endometrial cancer Lumbar spondylosis Surgical History History of lithotripsy Hx of bilateral cataract extraction History of fusion of cervical spine History of carpal tunnel release History of colonoscopy History of hysterectomy for cancer Family History Father Pancreatic cancer Mother No problems noted. Sister Diabetes mellitus Sister Epilepsy Sister Epilepsy Sister Breast cancer Sister No problems noted. Maternal Grandfather Unknown family medical history Maternal Grandmother Unknown family medical history Paternal Grandfather No problems noted. 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 Sexual orientation: Straight/Heterosexual Gender identity: Female Cognitive needs: No Hearing needs: Yes Vision needs: No Female Reproductive History Menstrual Age of Menarche: 11 Questionnaire Thrive Questionnaire Date Thrive assessed: 12/01/24 I am a: Patient What is your living situation today?: I have a steady place to live Within the past 12 months, did the food you bought not last and you didn't have the money to get more?: Never true Within the past 12 months, did you worry whether your food would run out before you got money to buy more?: Never true Do you have trouble paying for medicines?: No Do you have trouble getting transportation to medical appointments?: No Do you have trouble paying your heating and electricity bill?: No Do you have trouble taking care of your child, family member or friend?: No Do you have trouble with day-to-day activities such as bathing, preparing meals, shopping, managing finances, etc.?: No Are you currently unemployed and looking for a job?: No Are you interested in more education?: No Please select the resources that you would like help with: None Currently or been in a relationship where the following occur: No concerns reported THRIVE Score: 0 AUDIT C Alcohol Use Questionnaire (AUDIT-C) 1. How often do you have a drink containing alcohol?: Monthly or less 2. How many drinks containing alcohol do you have on a typical day when you are drinking?: 1 or 2 3. How often do you have six or more drinks on one occasion?: Never Total Score: 1 Score Reviewed/Action Taken: Yes HANH-7 AMB Questionnaire HANH-7 Date HANH - 7 assessed: 08/19/24 Source: Developed by Drs. Lennox Liao, Lennie Flores, Yemi Deluca and colleagues, with an educational gina from [employer]. Physical exam (Primary Care) Vital Signs: Last Vital Signs Pulse 83 12/01/24 09:57 BP 120/72 12/01/24 09:57 Pulse Ox 97 12/01/24 09:57 Oxygen Delivery Method Room Air 12/01/24 09:57 BMI result Body Mass Index 33.6 Tobacco/Smoking Status: Tobacco use Status Tobacco use date assessed 12/01/24 12/01/24 10:00 Patient Tobacco Use Status Current everyday Tobacco 12/01/24 10:00 Tobacco use type Cigarette 12/01/24 10:00 e-Cigarette/Vaping Use Never Used 12/01/24 10:00 Thrive Assessment: Date of Thrive Assessment Date Thrive assessed 12/01/24 12/01/24 10:00 Currently or been in a relationship where the following occur: No concerns reported Coding Level of Care Code Est Pt Level 3 (22275) Est Pt Prev Care 40-64y(05998) Diagnoses Encounter for general adult medical examination with abnormal findings Z00.01 Sciatica, left side M54.32 Class 1 obesity due to excess calories with serious comorbidity and body mass index (BMI) of 34.0 to 34.9 in adult E66.09; Z68.34 Obesity classification: adult class 1 (BMI 30 - 34.9) Serious obesity comorbidity presence: with serious comorbidity Body mass index: BMI 34.0-34.9 Environmental allergies Z91.09 Primary osteoarthritis of both hands M19.041; M19.042 Osteoarthritis type: primary Hypertension, essential I10 Lipid disorder E78.9 Lumbar spondylosis M47.816 Muscle spasm of back M62.830 Assessment & Plan Assessment & Plan (1) Encounter for general adult medical examination with abnormal findings: Code(s): Z00.01 - Encounter for general adult medical examination with abnormal findings Category: Medical (2) Sciatica, left side: Code(s): M54.32 - Sciatica, left side Category: Medical (3) Obesity due to excess calories: Code(s): E66.09 - Other obesity due to excess calories Category: Medical Qualifiers: Obesity classification: adult class 1 (BMI 30 - 34.9) Serious obesity comorbidity presence: with serious comorbidity Body mass index: BMI 34.0-34.9 Qualified Code(s): E66.09 - Other obesity due to excess calories; Z68.34 - Body mass index [BMI] 34.0-34.9, adult (4) Environmental allergies: Code(s): Z91.09 - Other allergy status, other than to drugs and biological substances Category: Medical (5) Osteoarthritis of hands, bilateral: Code(s): M19.041 - Primary osteoarthritis, right hand; M19.042 - Primary osteoarthritis, left hand Category: Medical Qualifiers: Osteoarthritis type: primary Qualified Code(s): M19.041 - Primary osteoarthritis, right hand; M19.042 - Primary osteoarthritis, left hand (6) Hypertension, essential: Code(s): I10 - Essential (primary) hypertension Category: Medical (7) Lipid disorder: Code(s): E78.9 - Disorder of lipoprotein metabolism, unspecified Category: Medical (8) Lumbar spondylosis: Code(s): M47.816 - Spondylosis without myelopathy or radiculopathy, lumbar region Category: Medical (9) Muscle spasm of back: Code(s): M62.830 - Muscle spasm of back Category: Medical Plan Patient is 64-year-old female came in today for physical examination - Chronic low back pain has been persistent despite weight loss of over 50 pounds. - Pain has worsened recently, impacting daily activities such as standing stationary, washing dishes, and taking showers. - for the knee osteoarthritis interventions include gel shots, which were 85% effective but no longer covered by insurance. - Current management includes oxycodone; requires periodic refills due to increasing pain. - MRI performed in January 2023; considering surgical intervention but apprehensive about potential side effects and recovery. - The patient reports arthritis affecting the hands and other joints, resulting in spasms and difficulty with fine motor tasks. - Weight management is continuing, with ongoing participation in the [place] program for weight loss. - Family history includes a sister with hydrocephalus who due to complications. Health Maintenance - Discussed weight management program, including participation in [place] for weight loss. - Colonoscopy last performed in [place], 2021 next 1 will be in 5 years from 2021 - Routine well-woman visits maintained through Dr. Suárez [facility] despite previous hysterectomy. - Patient informed about potential for temporary hair loss due to significant weight reduction and expected stabilization. - mammogram up-to-date [place] of Care: Dr. Moreau orthopedic back specialist [facility] Pain management [facility] Medications - Oxycodone for chronic low back pain management, 24 pills dispensed approximately every 2-3 months.. - Wegovy for weight management, currently at 1.7 mg with plans to increase to 2.4 mg. Employment - patient is employed Diagnostic results - MRI conducted in January 2023, showing spinal condition needing surgical evaluation. - Last orthopedic injection performed in November for pain management. Review of Systems - Musculoskeletal: Reports worsening low back pain. - Integumentary: Reports hair loss secondary to weight loss. - Neurological: Reports joint spasms in hands. - Gastrointestinal: Denies nausea, vomiting, diarrhea. - General: No fever no chills - Ear nose throat: No sore throat no hearing difficulty no ear pain - Cardiovascular: No syncope, no chest pain, no palpitations - Endocrine: No polyuria polydipsia no heat intolerance - Genitourinary: No dysuria - Skin: No new complaints Physical Exam General: Cooperative, healthy appearing, comfortable, no acute distress Orientation: Patient oriented x3 Limitations: Due to back pain and spasm in hands secondary to osteoarthritis small joints Head: Normal to inspection Ears: Within normal limit visually Nose: Normal external nose present Face and sinus: Normal facial exam Eyes: Appearance normal, extraocular movement intact pupils reactive Neck: Normal visual inspection and supple Respiratory: Normal respiratory effort and able to speak in complete sentences. Clear to auscultation, no stridor Cardiovascular: S1 and S2 Breast exam: No lumps found GI: Normal to inspection. Soft to palpation and nontender Skin: Turgor normal, no acute findings Neuro: Patient oriented x3, motor sensory intact, balance intact, tandem pass Extremities: Normal to inspection, patient reports arthritis in multiple joints, particularly affecting the right hand with cramping and difficulty in movement. Patient Instructions - Continue current weight loss program and medications. Dose increased to 2.4 mg of Wegovy - Consider wearing a back brace during activities requiring prolonged standing. - Follow up with pain management - Monitor and report any changes in symptoms or new concerns to the office. - Pickup medications from the pharmacy as prescribed, including increased dose of Wegovy to 2.4 mg. - Return for follow-up in three months to assess progress -referral placed to Neurosurgery [facility] for 2nd opinion secondary to sciatica and lumbar pain Labs were done recently reviewed Follow-up 3 months Medication refills sent Orders: Referrals Neurosurgery Referral M54.32 - Sciatica, left side Medications: New cyclobenzaprine 5 mg PO BEDTIME PRN 30 tabs 0RF muscle spasm Changed From semaglutide (weight loss) administer weeks 1 through 4 of therapy 1.7 mg (0.75 mL) subcut QWEEK 90 days 9.75 mL 0RF To semaglutide (weight loss) administer weeks 1 through 4 of therapy 2.4 mg (0.75 mL) subcut QWEEK 90 days 9.75 mL 0RF Refilled budesonide-formoterol 160-4.5 mcg/actuation (Symbicort) 2 puffs inhalation BID 3 months 30.6 grams 0RF J45.909 - Unspecified asthma, uncomplicated lisinopril 20 mg PO DAILY 90 tabs 0RF atorvastatin 40 mg PO DAILY 90 tabs 1RF oxycodone-acetaminophen 5-325 mg (Percocet) Partial Fill upon patient request. other rosario fill whole script 1 tab PO Q6H 7 days PRN 28 tabs 0RF pain
== END 2024-12-01 10:30 | disposition home or self-care (01) ==
PROVIDERS: PCP Internal Medicine; Visit Provider Internal Medicine
DX: Z00.00 Encounter for general adult medical examination without abnormal findings (principal); M54.32 Sciatica, left side; E66.09 Other obesity due to excess calories; Z68.34 Body mass index [BMI] 34.0-34.9, adult; Z91.09 Other allergy status, other than to drugs and biological substances; M19.041 Primary osteoarthritis, right hand; M19.042 Primary osteoarthritis, left hand; I10 Essential (primary) hypertension; E78.9 Disorder of lipoprotein metabolism, unspecified; M47.816 Spondylosis without myelopathy or radiculopathy, lumbar region; M62.830 Muscle spasm of back

== ENCOUNTER → 2024-12-01 09:56 | Outpatient (BNVA) | payer OTHER, SELFPAY | PROVIDERS: PCP Internal Medicine; Visit Provider Internal Medicine ==

== ENCOUNTER 2024-12-29 13:11 | Outpatient (AMB) | payer OTHER, SELFPAY ==
--- NOTE | 2024-12-29 13:14 | MHC.OFFVIS ---
Vital Signs 12/29/24 13:16 Height 5 ft 6 in Weight 208 lb 2 oz BMI 33.6 Intake Visit Reasons: Left knee pain Intake Note: Lluvia is a 64 year old female who presents with complaints of progressively worsening left knee pain. She describes her pain as sharp and severe in nature. Her pain has gotten worse over the last few years in spite of continued non operative treatments. She has had cortisone injections in the past which gave her minimal relief. She has also done physical therapy exercises which aggravated her pain. She has tried Tylenol and anti-inflammatory medicines which gave her minimal relief. She wishes to hold off on surgery if at all possible. Allergies Antihistamines - Alkylamine [ANTIHISTAMINES - ALKYLAMINE] Adverse Reaction (Intermediate, Verified 12/29/24 13:15) TACHYCARDIA Medication List - Last Reconciled 12/29/24 by Brant Smith MD atorvastatin 40 mg PO DAILY budesonide-formoterol 160-4.5 mcg/actuation (Symbicort) 2 puffs inhalation BID 3 months cyclobenzaprine 5 mg PO BEDTIME PRN lisinopril 20 mg PO DAILY oxycodone-acetaminophen 5-325 mg (Percocet) 1 tab PO Q6H PRN 7 days semaglutide (weight loss) 2.4 mg (0.75 mL) subcut QWEEK 90 days PFSH Medical History Osteoarthritis Elevated cholesterol HTN (hypertension) Endometrial cancer Lumbar spondylosis Surgical History History of lithotripsy Hx of bilateral cataract extraction History of fusion of cervical spine History of carpal tunnel release History of colonoscopy History of hysterectomy for cancer Family History Father Pancreatic cancer Mother No problems noted. Sister Diabetes mellitus Sister Epilepsy Sister Epilepsy Sister Breast cancer Sister No problems noted. Maternal Grandfather Unknown family medical history Maternal Grandmother Unknown family medical history Paternal Grandfather No problems noted. 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 Sexual orientation: Straight/Heterosexual Gender identity: Female Cognitive needs: No Hearing needs: Yes Vision needs: No Female Reproductive History Menstrual Age of Menarche: 11 Physical Exam Vital Signs: BMI result Body Mass Index 33.6 Const Other: Well-nourished well-developed very friendly female awake alert and oriented x3 in no acute distress Extrem Other: Bilateral lower extremity examination shows good capillary refill, no skin lesions noted, normal sensation light touch Left knee examination shows a minimal effusion, palpable crepitus with range of motion, pain with range of motion, no instability Office Procedures AMB Joint Injection/Aspiration Joint Injection/Aspiration Primary Site: left knee Prep: site was prepped using aseptic technique Injected: 20 mg of (Euflexxa viscosupplementation) and 1% plain lidocaine Procedure: The patient tolerated the procedure well Coding 18546 - Large joint Procedure code (CPT) selection complete Results Reviewed Results Reviewed: X-rays of the patient's left knee taken previously show joint space narrowing, subchondral sclerosis no acute bony abnormalities Assessment & Plan Assessment & Plan (1) Osteoarthritis of left knee: Code(s): M17.12 - Unilateral primary osteoarthritis, left knee Category: Medical Qualifiers: Osteoarthritis type: primary Qualified Code(s): M17.12 - Unilateral primary osteoarthritis, left knee (2) Left knee pain: Code(s): M25.562 - Pain in left knee Category: Medical Plan Ms. Griffin presents with progressively worsening left knee pain due to osteoarthritis. The risks and benefits of a series of Euflexxa viscosupplementation injections were discussed at length with the patient. The patient wished to proceed. She tolerated the 1st injection well. She will continue with her home exercise program. She will follow up next week as scheduled. Feel free to call me at any time should questions regarding her orthopedic management arise. I spent 21 minutes in reviewing the patient's records and imaging studies, seeing the patient and documenting in the medical record. Orders: Orders AMB Joint Injection/Aspiration Today M17.12 - Unilateral primary osteoarthritis, left knee Coding Level of Care Code Est Pt Level 3 (44146) Complex EM visit Add On G2211 Diagnoses Primary osteoarthritis of left knee M17.12 Osteoarthritis type: primary Left knee pain M25.562 CPT Codes Coding - 10623 Large joint: 48505 - Large joint ([id number])
[2024-12-29 13:16] VITALS: BMI 33.6
--- OUTSIDE RECORDS SUMMARY | 2024-12-29 14:11 | XMS_ITS | Clinical Summary ---
Author Organization [facility] Address [address] [place] [address] Care Team Providers Care Teacher Of The Sight Impaired Name Role Phone Kathleen Vizcarra MD Primary Care Provider [phone] Allergies Active Allergy Reactions Criticality Noted Date Comments Antihistamines, Loratadine-Type 04/02 Medications Medication Sig Dispensed Refills Start Date End Date Status atorvastatin (LIPITOR) tablet 40 mg Take 40 mg by mouth daily. 1 03/25/2019 Active lisinopril (PRINIVIL,ZESTRIL) tablet 20 mg Take 20 mg by mouth daily. 0 02/20/2019 Active tiZANidine (ZANAFLEX) 4 MG tablet Take 4 mg by mouth every evening. 1 02/23/2019 Active DULoxetine (CYMBALTA) DR capsule 30 mg 0 08/28/2021 Active oxyCODONE (ROXICODONE) 5 MG immediate release tablet 1 tab every 6-8 hours as needed for pain. May fill for lesser quantity 30 tablet 0 10/13/2021 Active aspirin 81 MG EC tablet Take 81 mg by mouth. 0 03/29/2021 Active cyclobenzaprine (FLEXERIL) 10 MG tablet Take 10 mg by mouth. 0 09/06/2021 Active Active Problems Problem Noted Date Diagnosed Date Postop check 06/26/2019 Acute medial meniscus tear, right, sequela 05/19 Pain and swelling of right knee 04/29/2019 Resolved Problems Problem Noted Date Diagnosed Date Resolved Date Acute tear lateral meniscus, right, sequela 05/19/2019 05/19/2019 Right calf pain 04/29/2019 05/19/2019 Family History Medical History Relation Name Comments Hypertension Father Cancer Sister Hyperlipidemia Sister Hypertension Sister Rheumatologic disease Sister Relation Name Status Comments Father Sister Social History Tobacco Use Types Packs/Day Years Used Date Smoking Tobacco: Every Day Cigarettes 0.5 Smokeless Tobacco: Never Alcohol Use Standard Drinks/Week Comments No 0 (1 standard drink = 0.6 oz pur e alcohol) Sex and Gender Information Value Date Recorded Sex Assigned at Not on file Gender Identity Not on file Sexual Orientation Not on file Job Start Date Occupation Industry Not on file Not on file Not on file Last Filed Vital Signs Vital Sign Reading Time Taken Comments Blood Pressure - - Pulse - - Temperature - - Respiratory Rate - - Oxygen Saturation - - Inhaled Oxygen Concentration - - Weight 120.2 kg (265 lb) 09/28/2021 2:29 PM EDT Height 170.2 cm (5' 7 ) 09/28/2021 2:29 PM EDT Body Mass Index 41.5 09/28/2021 2:29 PM EDT Plan of Treatment Health Maintenance Due Date Last Done Comments Hepatitis C Screening 1960 COVID-19 Vaccine (#1) 1960 Pneumococcal Vaccine (1 of 2 - PCV) 1966 Pneumococcal Vaccine (1 of 2 - PCV) 1966 Depression Screening 1972 BMI Counseling 1978 Preventative Health Evaluation 1978 Tobacco Cessation Counseling 1978 DTap / Tdap / Td (1 - Tdap) 1979 Cervical Cancer Screening (P ap Smear) 1981 Colon Cancer Screening (Colonoscopy) 2005 Breast Cancer Screening (Mammogram) 2010 Shingrix-Zoster Vaccine (1 of 2) 2010 Influenza Vaccine (#1) 2024 RSV Adult > 60+ Yrs or Pregn ant (1 - 1-dose 75+ series) 2035 Hepatitis B Vaccines Aged Out No long er eligible based on patient's age to complete this topic RSV Ped < 20 months Aged Out No longe r eligible based on patient's age to complete this topic Care Teams Teacher Of The Sight Impaired Relationship Specialty Start Date End Date Kathleen Vizcarra MD [address] [place] [id number] PCP - General Internal Medicine 04/29/19
== END 2024-12-29 13:47 | disposition home or self-care (01) ==
PROVIDERS: PCP Internal Medicine; Visit Provider Orthopaedic Surgery
DX: M17.12 Unilateral primary osteoarthritis, left knee (principal)
CPT/HCPCS: 20610; 99213

== ENCOUNTER → 2024-12-29 13:11 | Outpatient (BNVA) | payer OTHER, SELFPAY | PROVIDERS: PCP Internal Medicine; Visit Provider Orthopaedic Surgery | DX: M17.12 Unilateral primary osteoarthritis, left knee (principal) | CPT/HCPCS: 20610; J2003; J7323 ==

== ENCOUNTER → 2025-01-05 13:08 | Outpatient (BNVA) | payer OTHER, SELFPAY | PROVIDERS: PCP Internal Medicine; Visit Provider Orthopaedic Surgery | DX: M17.12 Unilateral primary osteoarthritis, left knee (principal) | CPT/HCPCS: 20610; J2003 ==

== ENCOUNTER 2025-01-12 13:10 | Outpatient (AMB) | payer OTHER, SELFPAY ==
[2025-01-12 13:12] VITALS: BMI 33.6
--- NOTE | 2025-01-12 13:12 | MHC.OFFVIS ---
Vital Signs 01/12/25 13:12 Height 5 ft 6 in Weight 208 lb 2 oz BMI 33.6 Intake Visit Reasons: Inj- Left knee Euflexxa # 3 ([employer]) Intake Note: Lluvia is a 64 year old female who presents today for her third dose of the Euflexxa gel injection on her left knee. She states that she has gotten mild relief from the 1st 2 injections. She continues with her home exercise program. Allergies Antihistamines - Alkylamine [ANTIHISTAMINES - ALKYLAMINE] Adverse Reaction (Intermediate, Verified 01/12/25 13:12) TACHYCARDIA Medication List - Last Reconciled 01/12/25 by Brant Smith MD atorvastatin 40 mg PO DAILY budesonide-formoterol 160-4.5 mcg/actuation (Symbicort) 2 puffs inhalation BID 3 months cyclobenzaprine 5 mg PO BEDTIME PRN lisinopril 20 mg PO DAILY oxycodone-acetaminophen 5-325 mg (Percocet) 1 tab PO Q6H PRN 7 days semaglutide (weight loss) 2.4 mg (0.75 mL) subcut QWEEK 90 days PFSH Medical History Osteoarthritis Elevated cholesterol HTN (hypertension) Endometrial cancer Lumbar spondylosis Surgical History History of lithotripsy Hx of bilateral cataract extraction History of fusion of cervical spine History of carpal tunnel release History of colonoscopy History of hysterectomy for cancer Family History Father Pancreatic cancer Mother No problems noted. Sister Diabetes mellitus Sister Epilepsy Sister Epilepsy Sister Breast cancer Sister No problems noted. Maternal Grandfather Unknown family medical history Maternal Grandmother Unknown family medical history Paternal Grandfather No problems noted. 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 Sexual orientation: Straight/Heterosexual Gender identity: Female Cognitive needs: No Hearing needs: Yes Vision needs: No Female Reproductive History Menstrual Age of Menarche: 11 Physical Exam Vital Signs: BMI result Body Mass Index 33.6 Extrem Other: Left knee examination shows a minimal effusion, palpable crepitus with range of motion, pain with range of motion, no instability Office Procedures AMB Joint Injection/Aspiration Joint Injection/Aspiration Primary Site: left knee Prep: site was prepped using aseptic technique Injected: 20 mg of (Euflexxa viscosupplementation) and 1% plain lidocaine Procedure: The patient tolerated the procedure well Coding - Large joint Procedure code (CPT) selection complete Assessment & Plan Assessment & Plan (1) Osteoarthritis of left knee: Code(s): M17.12 - Unilateral primary osteoarthritis, left knee Category: Medical Qualifiers: Osteoarthritis type: primary Qualified Code(s): M17.12 - Unilateral primary osteoarthritis, left knee Plan Ms. Griffin presents with left knee pain due to osteoarthritis. The risks and benefits of a 3rd Euflexxa viscosupplementation injection were discussed at length with the patient. The patient wished to proceed. She tolerated the injection well. She will continue with her home exercise program. She will contact me prior to her follow-up appointment in 6 months should any questions or concerns arise. Feel free to call me at any time should questions regarding her orthopedic management arise. Orders: Orders AMB Joint Injection/Aspiration Today M17.12 - Unilateral primary osteoarthritis, left knee Coding Level of Care Code Procedure Only Diagnoses Primary osteoarthritis of left knee M17.12 Osteoarthritis type: primary CPT Codes Coding - 94924 Large joint: 77035 - Large joint ([id number])
--- OUTSIDE RECORDS SUMMARY | 2025-01-12 14:17 | XMS_ITS | Clinical Summary ---
Author Organization [facility] Address [address] [place] [address] Care Team Providers Care Sheep Killer Name Role Phone Kathleen Vizcarra MD Primary Care Provider [phone] Allergies Active Allergy Reactions Criticality Noted Date [...] age to complete this topic Care Teams Sheep Killer Relationship Specialty Start Date End Date Kathleen Vizcarra MD [address] [place] [address] PCP - General Internal Medicine 04/29/19
== END 2025-01-12 13:35 | disposition home or self-care (01) ==
PROVIDERS: PCP Internal Medicine; Visit Provider Orthopaedic Surgery
DX: M17.12 Unilateral primary osteoarthritis, left knee (principal)
CPT/HCPCS: 20610

== ENCOUNTER → 2025-01-12 13:10 | Outpatient (BNVA) | payer OTHER, SELFPAY | PROVIDERS: PCP Internal Medicine; Visit Provider Orthopaedic Surgery | DX: M17.12 Unilateral primary osteoarthritis, left knee (principal) | CPT/HCPCS: 20610; J2003 ==

== ENCOUNTER 2025-03-02 12:55 | Outpatient (AMB) | payer OTHER, SELFPAY ==
--- NOTE | 2025-03-02 12:58 | A.OFFPC_ITS ---
Vital Signs 03/02/25 13:04 Height 5 ft 6 in Weight 206 lb 8 oz BMI 33.3 BP 124/78 Blood Pressure Location Lt brachial Position Sitting Pulse 81 Pulse Source Pulse Oximeter Pulse Oximetry (%) 98 Oxygen Delivery Method Room Air Intake Visit Reasons: 3 months follow up Allergies Antihistamines - Alkylamine [ANTIHISTAMINES - ALKYLAMINE] Adverse Reaction (Intermediate, Verified 03/02/25 13:01) TACHYCARDIA Medication List - Last Reconciled 03/02/25 by Kathleen Vizcarra MD atorvastatin 40 mg PO DAILY budesonide-formoterol 160-4.5 mcg/actuation (Symbicort) 2 puffs inhalation BID 3 months oxycodone-acetaminophen 5-325 mg (Percocet) 1 tab PO Q6H PRN 7 days semaglutide (weight loss) 2.4 mg (0.75 mL) subcut QWEEK 90 days Tobacco use date assessed: 03/02/25 Fall risk assessment: No Falls in past year Last assessed Fall Risk: 03/02/25 Dental Screening Dental Screen Date: 03/02/25 Did you have a dental visit in the last 12 months?: Yes Did you have a dental problem in the last 6 months where you did not have access to dental care?: No Was dental information given to patient?: Patient has dentist HPI 3 months follow up HPI Details History The patient is a 64-year-old female presenting with insomnia and obesity. at regular follow-up appointment - The patient experiences difficulty ini tiating sleep, taking up to two hours, attributed to mental restlessness about personal and family matters. She denies daytime napping and limits caffeine intake to the morning, yet has found melatonin ineffective. - Her weight remains notably high at 206 lbs with persistent difficulty achieving a stable weight below 200 lbs. patient continued to be on Wegovy 2.4 mg injections weekly She refers to the cessation of Lisinopril and her intention to quit smoking if her weight goals are met. - She smokes approximately 10-15 cigaret su daily and is finding it challenging to reduce this. - She has an intermittent history of hot flashes post-hysterectomy performed seven years ago for a past cancer diagnosis. Problem List - Hypertension (not currently medicated) - Obesity (current weight 206 lbs) - History of asthma - Insomnia - Tobacco use disorder - History of cancer (status post hystere ctomy) - Joint pain (requiring Percocet) - Hot flashes Patient Instructions - Continue tracking your blood pressure at home and bring recordings to the next appointment. - Attempt to limit smoking gradually wit h the aim to cease once weight drops below 200 lbs. - Use prescribed Mirtazapine 15 mg as ne eded for sleep disturbances. - Continue current medications: Atorvast atin 40 mg, Symbicort, and Semaglutide 2.4 mg. - Report any worsening symptoms or fabby rns about your joint pain management. - Return for laboratory evaluations in t hree months' time. - Engage in lifestyle modifications to a ssist with weight management, such as regular physical activity and balanced nutrition. Review of Systems - General: No fever no chills - Neurological: No headaches no dizziness - Ear nose throat: No sore throat no hearing difficulty no ear pain - Cardiovascular: No syncope, no chest pain, no palpitations - Gastrointestinal: No nausea vomiting or diarrhea - Endocrine: No polyuria polydipsia no heat intolerance - Genitourinary: No dysuria , no blood in urine Physical Exam - General: No acute distress - HEENT: No acute findings - Neck: Supple - Respiratory system: Able to talk in f ull sentences, no audible wheeze - Cardiovascular: S1-S2 regular in rate and rhythm - Gastrointestinal: No pain - Extremities: No new findings - COUNSELING SPECIALIST: Alert awake oriented x3 motor se nsory intact - Skin: Normal turgor PFSH Medical History Osteoarthritis Elevated cholesterol HTN (hypertension) Endometrial cancer Lumbar spondylosis Surgical History History of lithotripsy Hx of bilateral cataract extraction History of fusion of cervical spine History of carpal tunnel release History of colonoscopy History of hysterectomy for cancer Family History Father Pancreatic cancer Mother No problems noted. Sister Diabetes mellitus Sister Epilepsy Sister Epilepsy Sister Breast cancer Sister No problems noted. Maternal Grandfather Unknown family medical history Maternal Grandmother Unknown family medical history Paternal Grandfather No problems noted. 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 1. Little interest or pleasure in doing things: not at all 2. Feeling down, depressed, or hopeless: not at all 3. Trouble falling or staying asleep, or sleeping too much: nearly every day 4. Feeling tired or having little energy: not at all 5. Poor appetite or overeating: not at all 6. Feeling bad about yourself - or that you are a failure or have let yourself or your family down: not at all 7. Trouble concentrating on things, such as reading the newspaper or watching television: not at all 8. Moving or speaking so slowly that other people could have noticed. Or the opposite - being so fidgety or restless that you have been moving around a lot more than usual: not at all 9. Thoughts that you would be better off or of hurting yourself in some way: not at all Total score: 3 Depression Screening Interpretation: Negative Depression Screening Done: Yes 04359 - PHQ-9 Billing: Yes Source: Developed by Drs. Lennox Liao, Lennie Flores, Yemi Deluca and colleagues, with an educational gina from [employer]. Thrive Questionnaire Date Thrive assessed: 03/02/25 I am a: Patient What is your living situation today?: I have a steady place to live Within the past 12 months, did the food you bought not last and you didn't have the money to get more?: Never true Within the past 12 months, did you worry whether your food would run out before you got money to buy more?: Never true Do you have trouble paying for medicines?: No Do you have trouble getting transportation to medical appointments?: No Do you have trouble paying your heating and electricity bill?: No Do you have trouble taking care of your child, family member or friend?: No Do you have trouble with day-to-day activities such as bathing, preparing meals, shopping, managing finances, etc.?: No Are you currently unemployed and looking for a job?: No Are you interested in more education?: No Please select the resources that you would like help with: None Currently or been in a relationship where the following occur: No concerns reported THRIVE Score: 0 AUDIT C Alcohol Use Questionnaire (AUDIT-C) 1. How often do you have a drink containing alcohol?: Monthly or less 2. How many drinks containing alcohol do you have on a typical day when you are drinking?: 1 or 2 3. How often do you have six or more drinks on one occasion?: Never Total Score: 1 Score Reviewed/Action Taken: Yes HANH-7 AMB Questionnaire HANH-7 Date HANH - 7 assessed: 03/02/25 Feeling nervous, anxious, or on edge: 0 = Not at all Not being able to stop or control worryin = Not at all Worrying too much about different things: 0 = Not at all Trouble relaxin = Not at all Being so restless that it is hard to sit still: 0 = Not at all Becoming easily annoyed or irritable: 0 = Not at all Feeling afraid as if something awful might happen: 0 = Not at all Total HANH-7 score (0-4 normal; 5-9 mild; 10-14 moderate; 15-21 severe): 0 Source: Developed by Drs. Lennox Liao, Lennie Flores, Yemi Deluca and colleagues, with an educational gina from [employer]. HANH-7 Assessment Billing HANH-7 Assessment Tool: HANH-7 Assessment 98498 Physical exam (Primary Care) Vital Signs: Last Vital Signs Pulse 81 03/02/25 13:04 BP 124/78 03/02/25 13:04 Pulse Ox 98 03/02/25 13:04 Oxygen Delivery Method Room Air 03/02/25 13:04 BMI result Body Mass Index 33.3 Tobacco/Smoking Status: Tobacco use Status Tobacco use date assessed 03/02/25 03/02/25 13:03 Patient Tobacco Use Status Current everyday Tobacco 03/02/25 13:00 Tobacco use type Cigarette 03/02/25 13:00 e-Cigarette/Vaping Use Never Used 03/02/25 13:00 PHQ-9: PHQ-9 Score PHQ-9: Total score 3 03/02/25 13:23 Depression Screening Interpretation: Negative Thrive Assessment: Date of Thrive Assessment Date Thrive assessed 03/02/25 03/02/25 13:09 Currently or been in a relationship where the following occur: No concerns re ported Coding Level of Care Code Est Pt Level 4 (17677) Diagnoses Sciatica, left side M54.32 Difficulty sleeping G47.9 Lumbar spondylosis M47.816 Class 1 obesity due to excess calories with serious comorbidity and body mass index (BMI) of 34.0 to 34.9 in adult E66.09; Z68.34 Obesity classification: adult class 1 (BMI 30 - 34.9) Serious obesity comorbidity presence: with serious comorbidity Body mass index: BMI 34.0-34.9 Environmental allergies Z91.09 Primary osteoarthritis of both hands M19.041; M19.042 Osteoarthritis type: primary Lipid disorder E78.9 Muscle spasm of back M62.830 Additional Codes HANH-7 Assessment Billing - HANH-7 Assessment Tool: HANH-7 Assessment 50225 ([id number]) PHQ-9 - 91893 - PHQ-9 Billing: Yes ([id number]) Assessment & Plan Assessment & Plan (1) Sciatica, left side: Code(s): M54.32 - Sciatica, left side Category: Medical (2) Difficulty sleeping: Code(s): G47.9 - Sleep disorder, unspecified Category: Medical (3) Lumbar spondylosis: Code(s): M47.816 - Spondylosis without myelopathy or radiculopathy, lumbar region Category: Medical (4) Obesity due to excess calories: Code(s): E66.09 - Other obesity due to excess calories Category: Medical Qualifiers: Obesity classification: adult class 1 (BMI 30 - 34.9) Serious obesity comorbidity presence: with serious comorbidity Body mass index: BMI 34.0-34.9 Qualified Code(s): E66.09 - Other obesity due to excess calories; Z68.34 - Body mass index [BMI] 34.0-34.9, adult (5) Environmental allergies: Code(s): Z91.09 - Other allergy status, other than to drugs and biological substances Category: Medical (6) Osteoarthritis of hands, bilateral: Code(s): M19.041 - Primary osteoarthritis, right hand; M19.042 - Primary osteoarthritis, left hand Category: Medical Qualifiers: Osteoarthritis type: primary Qualified Code(s): M19.041 - Primary osteoarthritis, right hand; M19.042 - Primary osteoarthritis, left hand (7) Lipid disorder: Code(s): E78.9 - Disorder of lipoprotein metabolism, unspecified Category: Medical (8) Muscle spasm of back: Code(s): M62.830 - Muscle spasm of back Category: Medical Plan History The patient is a 64-year-old female presenting with insomnia and obesity. at regular follow-up appointment - The patient experiences difficulty initiating sleep, taking up to two hours, attributed to mental restlessness about personal and family matters. She denies daytime napping and limits caffeine intake to the morning, yet has found melatonin ineffective. - Her weight remains notably high at 206 lbs with persistent difficulty achieving a stable weight below 200 lbs. patient continued to be on Wegovy 2.4 mg injections weekly She refers to the cessation of Lisinopril and her intention to quit smoking if her weight goals are met. - She smokes approximately 10-15 cigarettes daily and is finding it challenging to reduce this. - She has an intermittent history of hot flashes post-hysterectomy performed seven years ago for a past cancer diagnosis. Problem List - Hypertension (not currently medicated) - Obesity (current weight 206 lbs) - History of asthma - Insomnia - Tobacco use disorder - History of cancer (status post hysterectomy) - Joint pain (requiring Percocet) - Hot flashes Patient Instructions - Continue tracking your blood pressure at home and bring recordings to the next appointment. - Attempt to limit smoking gradually with the aim to cease once weight drops below 200 lbs. - Use prescribed Mirtazapine 15 mg as needed for sleep disturbances. - Continue current medications: Atorvastatin 40 mg, Symbicort, and Semaglutide 2.4 mg. - Report any worsening symptoms or concerns about your joint pain management. - Return for laboratory evaluations in three months' time. - Engage in lifestyle modifications to assist with weight management, such as regular physical activity and balanced nutrition. Medications: New mirtazapine 15 mg PO BEDTIME 30 tabs 0RF Refilled oxycodone-acetaminophen 5-325 mg (Percocet) Partial Fill upon patient request. other rosario fill whole script 1 tab PO Q6H PRN 28 tabs 0RF pain 7 days
[2025-03-02 13:04] VITALS: BP 124/78; PULSE 81; O2SAT 98; BMI 33.3
--- OUTSIDE RECORDS SUMMARY | 2025-03-02 15:04 | XMS_ITS | Clinical Summary ---
Author Organization [facility] Address [address] [place] [address] Care Team Providers Care Teacher Associate Name Role Phone Kathleen Vizcarra MD Primary Care Provider [phone] Allergies Active Allergy Reactions Criticality Noted Date [...] to complete this topic Care Teams Teacher Associate Relationship Specialty Start Date End Date Kathleen Vizcarra MD [address] [place] [address] PCP - General Internal Medicine 04/29/19
== END 2025-03-02 13:25 | disposition home or self-care (01) ==
LOC: HO.HMCC 12:56
PROVIDERS: PCP Internal Medicine; Visit Provider Internal Medicine
DX: M54.32 Sciatica, left side (principal); G47.9 Sleep disorder, unspecified; M47.816 Spondylosis without myelopathy or radiculopathy, lumbar region; E66.09 Other obesity due to excess calories; Z68.34 Body mass index [BMI] 34.0-34.9, adult; Z91.09 Other allergy status, other than to drugs and biological substances; M19.041 Primary osteoarthritis, right hand; M19.042 Primary osteoarthritis, left hand; E78.9 Disorder of lipoprotein metabolism, unspecified; M62.830 Muscle spasm of back

== ENCOUNTER → 2025-03-02 12:55 | Outpatient (BNVA) | payer OTHER, SELFPAY | PROVIDERS: PCP Internal Medicine; Visit Provider Internal Medicine | DX: M54.32 Sciatica, left side (principal); G47.9 Sleep disorder, unspecified; M47.816 Spondylosis without myelopathy or radiculopathy, lumbar region; M19.041 Primary osteoarthritis, right hand; M19.042 Primary osteoarthritis, left hand; E78.9 Disorder of lipoprotein metabolism, unspecified; M62.830 Muscle spasm of back; E66.09 Other obesity due to excess calories; Z68.34 Body mass index [BMI] 34.0-34.9, adult; Z91.09 Other allergy status, other than to drugs and biological substances | CPT/HCPCS: 96127 ==

== ENCOUNTER 2025-06-08 11:14 | Outpatient (AMB) | payer OTHER, SELFPAY ==
[2025-06-08 11:20] VITALS: BP 130/70; BMI 32.6
--- NOTE | 2025-06-08 11:20 | A.OFFVIS_ITS ---
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 No complaints. Last Pap/HPV was in 2014 was negative , the patient is status post radical hysterectomy BSO in 2017 for endometrial adenocarcinoma Last Mammogram was BI-RADS 1 in 05/25 at [facility] Last Colonoscopy was in 11/22 [facility] Medical History Osteoarthritis Elevated cholesterol HTN (hypertension) Endometrial cancer Lumbar spondylosis Surgical History History of lithotripsy Hx of bilateral cataract extraction History of fusion of cervical spine History of carpal tunnel release History of colonoscopy History of hysterectomy for cancer Family History Father Pancreatic cancer Mother No problems noted. Sister Diabetes mellitus Sister Epilepsy Sister Epilepsy Sister Breast cancer Sister No problems noted. Maternal Grandfather Unknown family medical history Maternal Grandmother Unknown family medical history Paternal Grandfather No problems noted. 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 Sexual orientation: Straight/Heterosexual Gender identity: Female Cognitive needs: No Hearing needs: Yes Vision needs: No Female Reproductive History Menstrual Age of Menarche: 11 Date of Mammogram: 06/03/24 Review of Systems Const All systems reviewed & are unremarkable except as noted in HPI and below Card Reports as per HPI and Reports no additional complaints Resp Reports as per HPI and Reports no additional complaints GI Reports as per HPI and Reports no additional complaints Reports as per HPI Physical Exam Vital Signs: BMI result Body Mass Index 33.2 Const General: cooperative, healthy appearing and comfortable General: Yes bladder normal to palpation External Female Exam: No lesion Speculum Exam - Vagina: normal appearance of the vagina, normal vaginal discharge and not erythematous Speculum Exam - Cervix: Cervix absent Bimanual exam- vagina & uterus: bladder normal to palpation and uterus absent Bimanual Exam- Adnexa, other: Other (No masses detected) Assessment & Plan Assessment & Plan (1) Well woman exam: Code(s): Z01.419 - Encounter for gynecological examination (general) (routine) without abnormal findings Category: Medical Plan: Co testing not indicated. Counseled the patient about the recommended dietary allowance of 1200 mg of Ca lcium & 600 IU of vitamin D. Instructions given the patient to schedule next screening Mammogram this month. The patient was instructed to perform monthly self-breast exams and schedule annual exam in a year. All questions answered and the patient verbalized understanding. Coding Level of Care Code Est Pt Prev Care 40-64y(93679) Diagnoses Well woman exam Z01.419
--- OUTSIDE RECORDS SUMMARY | 2025-06-08 12:21 | XMS_ITS | Clinical Summary ---
Author Organization [facility] Address [address] [place] [address] Care Team Providers Care Sightseeing Guide Name Role Phone Kathleen Vizcarra MD Primary Care Provider [phone] Allergies Active Allergy Reactions Criticality Noted Date [...] (1 of 2) 2010 Influenza Vaccine (#1) 2025 RSV Adult > 60+ Yrs or Pregn ant (1 - 1-dose 75+ series) 2035 Hepatitis B Vaccines Aged Out No long er eligible based on patient's age to complete this topic RSV Ped < 20 months Aged Out No longe r eligible based on patient's age to complete this topic Care Teams Sightseeing Guide Relationship Specialty Start Date End Date Kathleen Vizcarra MD [address] [place] [address] PCP - General Internal Medicine 04/29/19
== END 2025-06-08 11:38 | disposition home or self-care (01) ==
LOC: HO.HWS 11:15
PROVIDERS: PCP Internal Medicine; Visit Provider Obstetrics & Gynecology
DX: Z01.419 Encounter for gynecological examination (general) (routine) without abnormal findings (principal)
CPT/HCPCS: 99396; 99459

== ENCOUNTER 2025-06-10 08:03 | Outpatient (REF) | payer OTHER, SELFPAY ==
--- OUTSIDE RECORDS SUMMARY | 2025-06-10 08:08 | XMS_ITS | Clinical Summary ---
Author Organization [facility] Address [address] [place] [address] Care Team Providers Care Safety Attendant Name Role Phone Kathleen Vizcarra MD Primary Care Provider [phone] Allergies Active Allergy Reactions Criticality Noted Date [...] age to complete this topic Care Teams Safety Attendant Relationship Specialty Start Date End Date Kathleen Vizcarra MD [address] [place] [phone] PCP - General Internal Medicine 04/29/19
[2025-06-10 10:22] LABS: MANUAL DIFF FLAG NO
[2025-06-10 10:51] LABS: Hematocrit 43.0 % (37.0-47.0); Hemoglobin 14.2 g/dl (12.0-16.0); Imm Gran Abs Auto 0.04 X10*3/uL (0.00-0.03); Imm Gran Pct Auto 0.4 % (0.0-0.4); Lymphocytes Absolute Auto 3.5 X10*3/uL (1.2-4.9); Mean Corpuscular HGB Conc 33.0 g/dl (31.0-35.0); Mean Corpuscular Hemoglobin 32.8 pg (27.0-33.0); Mean Corpuscular Volume 99.3 fL (80.0-98.0); NRBC Abs Auto 0.000 X10*3/uL (0.0-0.012); NRBC Pct Auto 0.0 /100WBC (0.0-0.2); Platelet Count 315 X10*3/uL (160-400); Red Blood Count 4.33 X10*6/uL (4.20-5.50); White Blood Count 10.9 X10*3/uL (4.8-10.8)
[2025-06-10 10:57] LABS: Alanine Aminotransferase 29 U/L (0-31); Albumin Level 4.2 g/dL (3.5-5.0); Alkaline Phosphatase 83 U/L (39-117); Amylase 40 U/L (28-100); Anion Gap 10 (12-20); Aspartate Amino Transferase 30 U/L (5-31); Blood Urea Nitrogen 14 mg/dL (9-16); Calcium 9.5 mg/dL (8.4-10.2); Carbon Dioxide 27 mmol/L (22-29); Chloride 110 mmol/L (96-108); Cholesterol 121 mg/dL (<200); Estimated Glomerular Filt Rate > 60; HDL Cholesterol 57 mg/dL (>40); Lipase 41 U/L (8-78); Potassium 4.0 mmol/L (3.3-5.1); Sodium 143 mmol/L (135-145); Total Protein 6.6 g/dL (6.5-8.0); Triglycerides 82 mg/dL (<150)
== END 2025-06-10 08:04 | disposition home or self-care (01) ==
LOC: HO.HMGCLDS 08:03
PROVIDERS: PCP Internal Medicine; Visit Provider Internal Medicine
DX: I10 Essential (primary) hypertension (principal); E78.9 Disorder of lipoprotein metabolism, unspecified
CPT/HCPCS: 36415; 80053; 80061; 82150; 83690; 84443; 85025

== ENCOUNTER 2025-06-11 11:55 | Outpatient (AMB) | payer OTHER, SELFPAY ==
--- NOTE | 2025-06-11 11:58 | A.OFFPC_ITS ---
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: No Accompanied by: Self / Same As Patient Allergies Antihistamines - Alkylamine (ANTIHISTAMINES - ALKYLAMINE) Adverse Reaction (Intermediate, Verified 06/11/25 12:01) TACHYCARDIA Medication List - Last Reconciled 06/11/25 by Kathleen Vizcarra MD atorvastatin 40 mg PO DAILY budesonide-formoterol 160-4.5 mcg/actuation (Symbicort) 2 puffs inhalation BID 3 months mirtazapine 15 mg PO BEDTIME oxycodone-acetaminophen 5-325 mg (Percocet) 1 tab PO BID PRN 7 days semaglutide (weight loss) 2.4 mg (0.75 mL) subcut QWEEK 90 days Tobacco use date assessed: 03/02/25 Fall risk assessment: No Falls in past year Last assessed Fall Risk: 06/11/25 Dental Screening Dental Screen Date: 03/02/25 HPI 3 months f/up HPI Details History - The patient is a 64-year-old female pr esenting with concerns regarding weight management, medication, back pain, and respiratory symptoms. - Weight gain of 3 pounds noted, despite efforts to manage with diet. - Discussed frustration with lack of kip ght reduction despite adherence to low- fat dietary practices and reduction of certain high-calorie summer foods such as hamburgers and hot dogs for occasional consumption. - Back pain noted to be worsening; previ ously managed with pain medication and injections which have reduced efficacy. - Reports respiratory symptoms including wheezing on the left side, with symptoms persisting despite use of inhalers. Continue to smoke - Worked full-time, expressing desire to maintain this level of activity; plans to work until 66. - Reports frustration due to inadequate filling of medication by the pharmacy, attributing it to a misunderstanding of state law. Medical History: - Hyperlipidemia managed with atorvastat in. - Depression managed with mirtazapine. - Chronic back pain. - Respiratory issues treated with inhale rs. - Weight management issues. - smoker Surgical History: - History of hysterectomy resulting in a bsence of uterus. - No Pap tests indicated due to surgical history. For benign reasons Medications: - Atorvastatin for hyperlipidemia. - Symbicort for respiratory issues. - Mirtazapine used as needed for depress ion and sleep issues. - Semaglutide for weight management. - Oxycodone for chronic back pain manage ment. Social History: - Currently employed full-time in [employer] of continuing until age 66. - Expresses ongoing struggle with weight management despite dietary modifications. - Reports consumption of low-fat or no-f at dressings. - Occasional consumption of high-calorie foods such as hamburgers and hot dogs. - Regular consumption of fruits and vege tables, mindful of caloric intake. - Concerned about hair loss potentially related to semaglutide. - Regular use of prescribed inhalers but reports smoking, affecting respiratory health. Diagnostic Results: - Mammogram conducted on Saturday with no immediate callback, implying normal results. - Recent labs were reported as stable. Problem List - Weight management issues. - Chronic back pain. Takes Percocet as needed 60 tablets sent, patient is getting only 28 per month - Respiratory symptoms (wheezing). COPD - Hyperlipidemia. - Depression. - wheezing - difficulty sleeping Patient Instructions - Continue current medications as discus sed. - Monitor weight and dietary intake. - Follow up with a custom shop worker in [facility] for hair loss evaluation. - Continue using inhalers as prescribed, and discuss adjustments if needed. Spiriva added to Symbicort - Encourage smoking cessation to improve respiratory health. Review of Systems - General: No fever no chills - Neurological: No headaches no dizziness - Ear nose throat: No sore throat no hearing difficulty no ear pain - Cardiovascular: No syncope, no chest pain, no palpitations - Gastrointestinal: No nausea vomiting or diarrhea - Endocrine: No polyuria polydipsia no heat intolerance - Genitourinary: No dysuria , no blood in urine Physical Exam General: No acute distress HEENT: No acute findings Neck: Supple Respiratory system: Able to talk in full sentences, wheezing noted on the left side posteriorly Cardiovascular: S1-S2 regular in rate and rhythm Gastrointestinal: No pain Extremities: No new findings CLAIM EXAMINER: Alert awake oriented x3 motor sensory intact Skin: Normal turgor, bruising noted from rubbing and banging, benign mole observed [facility] Medical History Osteoarthritis Elevated cholesterol HTN (hypertension) Endometrial cancer Lumbar spondylosis Surgical History History of lithotripsy Hx of bilateral cataract extraction History of fusion of cervical spine History of carpal tunnel release History of colonoscopy History of hysterectomy for cancer Family History Father Pancreatic cancer Mother No problems noted. Sister Diabetes mellitus Sister Epilepsy Sister Epilepsy Sister Breast cancer Sister No problems noted. Maternal Grandfather Unknown family medical history Maternal Grandmother Unknown family medical history Paternal Grandfather No problems noted. 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 Sexual orientation: Straight/Heterosexual Gender identity: Female Cognitive needs: No Hearing needs: Yes Vision needs: No Female Reproductive History Menstrual Age of Menarche: 11 Questionnaire Thrive Questionnaire Date Thrive assessed: 06/11/25 I am a: Patient What is your living situation today?: I have a steady place to live Within the past 12 months, did the food you bought not last and you didn't have the money to get more?: Never true Within the past 12 months, did you worry whether your food would run out before you got money to buy more?: Never true Do you have trouble paying for medicines?: No Do you have trouble getting transportation to medical appointments?: No Do you have trouble paying your heating and electricity bill?: No Do you have trouble taking care of your child, family member or friend?: No Do you have trouble with day-to-day activities such as bathing, preparing meals, shopping, managing finances, etc.?: No Are you currently unemployed and looking for a job?: No Are you interested in more education?: No Please select the resources that you would like help with: None Currently or been in a relationship where the following occur: No concerns reported THRIVE Score: 0 HANH-7 AMB Questionnaire HANH-7 Date HANH - 7 assessed: 03/02/25 Source: Developed by Drs. Lennox Liao, Lennie Flores, Yemi Deluca and colleagues, with an educational gina from [employer]. Physical exam (Primary Care) Vital Signs: Last Vital Signs Pulse 86 06/11/25 11:59 Resp 16 06/11/25 11:59 BP 124/80 06/11/25 11:59 Pulse Ox 98 06/11/25 11:59 Oxygen Delivery Method Room Air 06/11/25 11:59 BMI result Body Mass Index 33.1 Tobacco/Smoking Status: Tobacco use Status Tobacco use date assessed 03/02/25 06/11/25 11:59 Patient Tobacco Use Status Current everyday Tobacco 06/11/25 11:59 Tobacco use type Cigarette 06/11/25 11:59 e-Cigarette/Vaping Use Never Used 06/11/25 11:59 Thrive Assessment: Date of Thrive Assessment Date Thrive assessed 06/11/25 06/11/25 11:59 Currently or been in a relationship where the following occur: No concerns reported Coding Level of Care Code Est Pt Level 4 (31707) Diagnoses Lipid disorder E78.9 Difficulty sleeping G47.9 Class 1 obesity due to excess calories with serious comorbidity and body mass index (BMI) of 34.0 to 34.9 in adult E66.09; Z68.34 Body mass index: BMI 34.0-34.9 Obesity classification: adult class 1 (BMI 30 - 34.9) Serious obesity comorbidity presence: with serious comorbidity Environmental allergies Z91.09 Primary osteoarthritis of both hands M19.041; M19.042 Osteoarthritis type: primary Muscle spasm of back M62.830 Sciatica, left side M54.32 Narcotic dependence F11.20 Pain management R52 Assessment & Plan Assessment & Plan (1) Lipid disorder: Code(s): E78.9 - Disorder of lipoprotein metabolism, unspecified Category: Medical (2) Difficulty sleeping: Code(s): G47.9 - Sleep disorder, unspecified Category: Medical (3) Obesity due to excess calories: Code(s): E66.09 - Other obesity due to excess calories Category: Medical Qualifiers: Body mass index: BMI 34.0-34.9 Obesity classification: adult class 1 (BMI 30 - 34.9) Serious obesity comorbidity presence: with serious comorbidity Qualified Code(s): E66.09 - Other obesity due to excess calories; Z68.34 - Body mass index [BMI] 34.0-34.9, adult (4) Environmental allergies: Code(s): Z91.09 - Other allergy status, other than to drugs and biological substances Category: Medical (5) Osteoarthritis of hands, bilateral: Code(s): M19.041 - Primary osteoarthritis, right hand; M19.042 - Primary osteoarthritis, left hand Category: Medical Qualifiers: Osteoarthritis type: primary Qualified Code(s): M19.041 - Primary osteoarthritis, right hand; M19.042 - Primary osteoarthritis, left hand (6) Muscle spasm of back: Code(s): M62.830 - Muscle spasm of back Category: Medical (7) Sciatica, left side: Code(s): M54.32 - Sciatica, left side Category: Medical (8) Narcotic dependence: Code(s): F11.20 - Opioid dependence, uncomplicated Category: Medical (9) Pain management: Code(s): R52 - Pain, unspecified Category: Medical Plan History - The patient is a 64-year-old female presenting with concerns regarding weight management, medication, back pain, and respiratory symptoms. - Weight gain of 3 pounds noted, despite efforts to manage with diet. - Discussed frustration with lack of weight reduction despite adherence to low- fat dietary practices and reduction of certain high-calorie summer foods such as hamburgers and hot dogs for occasional consumption. - Back pain noted to be worsening; previously managed with pain medication and injections which have reduced efficacy. - Reports respiratory symptoms including wheezing on the left side, with symptoms persisting despite use of inhalers. Continue to smoke - Worked full-time, expressing desire to maintain this level of activity; plans to work until 66. - Reports frustration due to inadequate filling of medication by the pharmacy, attributing it to a misunderstanding of state law. Medical History: - Hyperlipidemia managed with atorvastatin. - Depression managed with mirtazapine. - Chronic back pain. - Respiratory issues treated with inhalers. - Weight management issues. - smoker Surgical History: - History of hysterectomy resulting in absence of uterus. - No Pap tests indicated due to surgical history. For benign reasons Medications: - Atorvastatin for hyperlipidemia. - Symbicort for respiratory issues. - Mirtazapine used as needed for depression and sleep issues. - Semaglutide for weight management. - Oxycodone for chronic back pain management. Social History: - Currently employed full-time in anticipation of continuing until age 66. - Expresses ongoing struggle with weight management despite dietary modifications. - Reports consumption of low-fat or no-fat dressings. - Occasional consumption of high-calorie foods such as hamburgers and hot dogs. - Regular consumption of fruits and vegetables, mindful of caloric intake. - Concerned about hair loss potentially related to semaglutide. - Regular use of prescribed inhalers but reports smoking, affecting respiratory health. Diagnostic Results: - Mammogram conducted on Saturday with no immediate callback, implying normal results. - Recent labs were reported as stable. Problem List - Weight management issues. - Chronic back pain. Takes Percocet as needed 60 tablets sent, patient is getting only 28 per month - Respiratory symptoms (wheezing). COPD - Hyperlipidemia. - Depression. - wheezing - difficulty sleeping Patient Instructions - Continue current medications as discussed. - Monitor weight and dietary intake. - Follow up with a custom shop worker in October for hair loss evaluation. - Continue using inhalers as prescribed, and discuss adjustments if needed. Spiriva added to Symbicort - Encourage smoking cessation to improve respiratory health. Medications: New tiotropium bromide 2.5 mcg/actuation (Spiriva Respimat) 2 inhalations inhalation QAM 4 grams 0RF 30 days Changed From oxycodone-acetaminophen 5-325 mg (Percocet) Partial Fill upon patient request. other rosario fill whole script 1 tab PO BID 7 days PRN 14 tabs 0RF pain To oxycodone-acetaminophen 5-325 mg (Percocet) Partial Fill upon patient request. other rosario fill whole script 1 tab PO BID 30 days PRN 60 tabs 0RF pain From oxycodone-acetaminophen 5-325 mg (Percocet) Partial Fill upon patient request. other rosario fill whole script 1 tab PO BID 30 days PRN 60 tabs 0RF pain To oxycodone-acetaminophen 5-325 mg (Percocet) Partial Fill upon patient request. other rosario fill whole script 1 tab PO .Q.d. PRN 30 tabs 0RF pain 30 days Refilled mirtazapine 15 mg PO BEDTIME 90 tabs 0RF
[2025-06-11 11:59] VITALS: BP 124/80; PULSE 86; RESP 16; O2SAT 98; BMI 33.1
--- OUTSIDE RECORDS SUMMARY | 2025-06-11 12:18 | XMS_ITS | Clinical Summary ---
Author Organization [facility] Address [address] [place] [address] Care Team Providers Care Fretted Instruments Inspector Name Role Phone Kathleen Vizcarra MD Primary Care Provider [phone] Allergies Active Allergy Reactions Criticality Noted Date [...] age to complete this topic Care Teams Fretted Instruments Inspector Relationship Specialty Start Date End Date Kathleen Vizcarra MD [address] [place] [id number] PCP - General Internal Medicine 04/29/19
== END 2025-06-11 12:26 | disposition home or self-care (01) ==
LOC: HO.HMCC 11:57
PROVIDERS: PCP Internal Medicine; Visit Provider Internal Medicine
DX: E78.9 Disorder of lipoprotein metabolism, unspecified (principal); E66.09 Other obesity due to excess calories; Z68.34 Body mass index [BMI] 34.0-34.9, adult; F11.20 Opioid dependence, uncomplicated; G47.9 Sleep disorder, unspecified; Z91.09 Other allergy status, other than to drugs and biological substances; M19.041 Primary osteoarthritis, right hand; M19.042 Primary osteoarthritis, left hand; M62.830 Muscle spasm of back; M54.32 Sciatica, left side

== ENCOUNTER 2025-08-27 11:56 | Outpatient (AMB) | payer OTHER, SELFPAY ==
--- NOTE | 2025-08-27 12:02 | A.OFFPC_ITS ---
Vital Signs 08/27/25 12:03 Height 5 ft 6 in Weight 208 lb BMI 33.6 BP 118/80 Blood Pressure Location Lt brachial Position Sitting Pulse 85 Pulse Source Pulse Oximeter Pulse Oximetry (%) 96 Intake Visit Reasons: 11 week follow up Allergies Antihistamines - Alkylamine (ANTIHISTAMINES - ALKYLAMINE) Adverse Reaction (Intermediate, Verified 08/27/25 12:03) TACHYCARDIA Medication List - Last Reconciled 08/27/25 by Kathleen Vizcarra MD atorvastatin 40 mg PO DAILY budesonide-formoterol 160-4.5 mcg/actuation (Symbicort) 2 puffs inhalation BID 3 months mirtazapine 15 mg PO BEDTIME oxycodone-acetaminophen 5-325 mg (Percocet) 1 tab PO .Q.d. PRN 30 days semaglutide (weight loss) 2.4 mg (0.75 mL) subcut QWEEK 90 days tiotropium bromide 2.5 mcg/actuation (Spiriva Respimat) 2 inhalations inhalation QAM 90 days Tobacco use date assessed: 03/02/25 Fall risk assessment: No Falls in past year Last assessed Fall Risk: 08/27/25 Dental Screening Dental Screen Date: 03/02/25 HPI 11 week follow up HPI Details History The patient is a 65-year-old female presenting f/u apt Smoking cessation: - The patient has been smoking for 40 ye ars, with her father being a tobacco tyson. - She is working on quitting smoking, cu rrently down to approximately half her usual intake. - The patient experiences difficulty wit h artificial sweeteners, resulting in heartburn, and has increased her consumption of Lifesavers to curb smoking urges. - During a recent cold, she reduced smok ing to three cigarettes/day but usually continues smoking despite being ill. - Regularly smokes five to seven cigaret su a day. Knee pain: - The patient reports chronic pain in th e left knee. - Injections have been providing tempora ry relief, initially effective for six months, now lasting only about four months. - She is considering partial knee replac ement following consultation with Dr. Doyle at [facility], as the relief from injections is diminishing. Weight management: - Patient successfully lost weight but r eports regaining some weight after previously reaching 202 pounds. - Weight fluctuation noted: more recentl y returned to same weight as in January of this year at 208 pounds. - She attributes some weight gain to usi ng Lifesavers to manage smoking cravings, although not actively gaining weight. Lipid disorder : contine meds Pain managment with Percocet, one or two daily for knee pain Medical History: - Chronic obstructive pulmonary disease (COPD) - Hyperlipidemia - insominia managed with mirtazapine as needed - Chronic back pain, knee pain managed with oxycodone Medications: - Atorvastatin for hyperlipidemia - Symbicort inhaler for COPD - Mirtazapine for depression, taken as n eeded - Oxycodone (Percocet) for back pain, ta [place] three to four days a week depending on pain Social History: - Smokin-year history, currently re ducing intake - Father was a tobacco tyson; tobacco w as prevalent in upbringing - Engaged in efforts to quit smoking, wi th use of Lifesavers to manage cravings - Weight management efforts: Lost 60 adrianna nds in the past, struggles with maintaining weight loss Problem List - Smoking cessation - Chronic left knee pain - Hyperlipidemia - Depression - Chronic back pain - Chronic obstructive pulmonary disease (COPD) Diagnostic results - Labs: Last completed in June; another lab set ordered for the next visit [facility] - Consultation and management advice yumiko Doyle at [facility] regarding knee issues Patient Instructions - Continue current medications - Schedule lab tests before next appoint ment - Receive flu and pneumonia vaccinations when fully recovered from current cold - Follow-up appointment scheduled for Edenilson wood - Continue efforts to quit smoking - Maintain weight management strategies f/u 3 M Review of Systems General: No fever no chills neurological: No headaches no dizziness ear nose throat: No sore throat no hearing difficulty no ear pain cardiovascular: No syncope, no chest pain, no palpitations gastrointestinal: No nausea vomiting or diarrhea skin: No new complaints Physical Exam general: No acute distress HEENT: No acute findings neck: Supple respiratory system: Wheezing present but no distress cardiovascular: S1-S2 RRR gastrointestinal: No pain extremities: No new findings ETCHER HAND: Alert awake oriented x3 motor sensory intact skin: Normal turgor PFSH Medical History Osteoarthritis Elevated cholesterol HTN (hypertension) Endometrial cancer Lumbar spondylosis Surgical History History of lithotripsy Hx of bilateral cataract extraction History of fusion of cervical spine History of carpal tunnel release History of colonoscopy History of hysterectomy for cancer Family History Father Pancreatic cancer Mother No problems noted. Sister Diabetes mellitus Sister Epilepsy Sister Epilepsy Sister Breast cancer Sister No problems noted. Maternal Grandfather Unknown family medical history Maternal Grandmother Unknown family medical history Paternal Grandfather No problems noted. 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 1. Little interest or pleasure in doing things: not at all 2. Feeling down, depressed, or hopeless: not at all 3. Trouble falling or staying asleep, or sleeping too much: nearly every day 4. Feeling tired or having little energy: not at all 5. Poor appetite or overeating: not at all 6. Feeling bad about yourself - or that you are a failure or have let yourself or your family down: not at all 7. Trouble concentrating on things, such as reading the newspaper or watching television: not at all 8. Moving or speaking so slowly that other people could have noticed. Or the opposite - being so fidgety or restless that you have been moving around a lot more than usual: not at all 9. Thoughts that you would be better off or of hurting yourself in some way: not at all Total score: 3 Depression Screening Interpretation: Negative Depression Screening Done: Yes 41953 - PHQ-9 Billing: Yes Source: Developed by Drs. Lennox Liao, LennieYemi Espinoza and colleagues, with an educational gina from [email or web address]. Thrive Questionnaire Date Thrive assessed: 03/02/25 I am a: Patient What is your living situation today?: I have a steady place to live Within the past 12 months, did the food you bought not last and you didn't have the money to get more?: Never true Within the past 12 months, did you worry whether your food would run out before you got money to buy more?: Never true Do you have trouble paying for medicines?: No Do you have trouble getting transportation to medical appointments?: No Do you have trouble paying your heating and electricity bill?: No Do you have trouble taking care of your child, family member or friend?: No Do you have trouble with day-to-day activities such as bathing, preparing meals, shopping, managing finances, etc.?: No Are you currently unemployed and looking for a job?: No Are you interested in more education?: No Please select the resources that you would like help with: None Currently or been in a relationship where the following occur: No concerns reported THRIVE Score: 0 AUDIT C Alcohol Use Questionnaire (AUDIT-C) 1. How often do you have a drink containing alcohol?: Monthly or less 2. How many drinks containing alcohol do you have on a typical day when you are drinking?: 1 or 2 3. How often do you have six or more drinks on one occasion?: Never Total Score: 1 HANH-7 AMB Questionnaire HANH-7 Date HANH - 7 assessed: 03/02/25 Feeling nervous, anxious, or on edge: 0 = Not at all Not being able to stop or control worryin = Not at all Worrying too much about different things: 0 = Not at all Trouble relaxin = Not at all Being so restless that it is hard to sit still: 0 = Not at all Becoming easily annoyed or irritable: 0 = Not at all Feeling afraid as if something awful might happen: 0 = Not at all Total HANH-7 score (0-4 normal; 5-9 mild; 10-14 moderate; 15-21 severe): 0 Source: Developed by Drs. Lennox Liao, Yemi Bentley and colleagues, with an educational gina from [email or web address]. HANH-7 Assessment Billing HANH-7 Assessment Tool: HANH-7 Assessment 19306 Physical exam (Primary Care) Vital Signs: Last Vital Signs Pulse 85 08/27/25 12:03 BP 118/80 08/27/25 12:03 Pulse Ox 96 08/27/25 12:03 BMI result Body Mass Index 33.6 Tobacco/Smoking Status: Tobacco use Status Tobacco use date assessed 03/02/25 08/27/25 12:06 Patient Tobacco Use Status Current everyday Tobacco 08/27/25 12:06 Tobacco use type Cigarette 08/27/25 12:06 e-Cigarette/Vaping Use Never Used 08/27/25 12:06 PHQ-9: PHQ-9 Score PHQ-9: Total score 3 08/27/25 13:08 Depression Screening Interpretation: Negative Thrive Assessment: Date of Thrive Assessment Date Thrive assessed 03/02/25 08/27/25 12:06 Currently or been in a relationship where the following occur: No concerns reported Coding Level of Care Code Est Pt Level 5 (49789) Diagnoses Wheezing R06.2 COPD exacerbation J44.1 Hypertension, essential I10 Tobacco dependence F17.200 Herniated nucleus pulposus, lumbar M51.26 Class 1 obesity due to excess calories with serious comorbidity and body mass index (BMI) of 34.0 to 34.9 in adult E66.09; Z68.34 Body mass index: BMI 34.0-34.9 Obesity classification: adult class 1 (BMI 30 - 34.9) Serious obesity comorbidity presence: with serious comorbidity Lipid disorder E78.9 Primary osteoarthritis of left knee M17.12 Osteoarthritis type: primary Mood disorder F39 Environmental allergies Z91.09 Narcotic dependence F11.20 Additional Codes PHQ-9 - 67111 - PHQ-9 Billing: Yes ([id number]) HANH-7 Assessment Billing - HANH-7 Assessment Tool: HANH-7 Assessment 68394 ([id number]) Time Spent (min) 41 Comment review chart / labs/ face to face / smoking discussion / documentation/ coordination of cr Assessment & Plan Assessment & Plan (1) Wheezing: Code(s): R06.2 - Wheezing Category: Medical (2) COPD exacerbation: Code(s): J44.1 - Chronic obstructive pulmonary disease with (acute) exacerbation Category: Medical (3) Hypertension, essential: Code(s): I10 - Essential (primary) hypertension Category: Medical (4) Tobacco dependence: Code(s): F17.200 - Nicotine dependence, unspecified, uncomplicated Category: Medical (5) Herniated nucleus pulposus, lumbar: Code(s): M51.26 - Other intervertebral disc displacement, lumbar region Category: Medical (6) Obesity due to excess calories: Code(s): E66.09 - Other obesity due to excess calories Category: Medical Qualifiers: Body mass index: BMI 34.0-34.9 Obesity classification: adult class 1 (BMI 30 - 34.9) Serious obesity comorbidity presence: with serious comorbidity Qualified Code(s): E66.09 - Other obesity due to excess calories; Z68.34 - Body mass index [BMI] 34.0-34.9, adult (7) Lipid disorder: Code(s): E78.9 - Disorder of lipoprotein metabolism, unspecified Category: Medical (8) Osteoarthritis of left knee: Code(s): M17.12 - Unilateral primary osteoarthritis, left knee Category: Medical Qualifiers: Osteoarthritis type: primary Qualified Code(s): M17.12 - Unilateral primary osteoarthritis, left knee (9) Mood disorder: Code(s): F39 - Unspecified mood [affective] disorder Category: Medical (10) Environmental allergies: Code(s): Z91.09 - Other allergy status, other than to drugs and biological substances Category: Medical (11) Narcotic dependence: Code(s): F11.20 - Opioid dependence, uncomplicated Category: Medical Plan History The patient is a 65-year-old female presenting f/u apt Smoking cessation: - The patient has been smoking for 40 years, with her father being a tobacco tyson. - She is working on quitting smoking, currently down to approximately half her usual intake. - The patient experiences difficulty with artificial sweeteners, resulting in heartburn, and has increased her consumption of Lifesavers to curb smoking urges. - During a recent cold, she reduced smoking to three cigarettes/day but usually continues smoking despite being ill. - Regularly smokes five to seven cigarettes a day. COPD : she is wheezing today, continue to take her inhalers Knee pain: - The patient reports chronic pain in the left knee. - Injections have been providing temporary relief, initially effective for six months, now lasting only about four months. - She is considering partial knee replacement following consultation with Dr. Doyle at [facility], as the relief from injections is diminishing. Weight management: - Patient successfully lost weight but reports regaining some weight after previously reaching 202 pounds. - Weight fluctuation noted: more recently returned to same weight as in January of this year at 208 pounds. - She attributes some weight gain to using Lifesavers to manage smoking cravings, although not actively gaining weight. Lipid disorder : contine meds Pain managment with Percocet, one or two daily for knee pain Medical History: - Chronic obstructive pulmonary disease (COPD) - Hyperlipidemia - insominia managed with mirtazapine as needed - Chronic back pain, knee pain managed with oxycodone Medications: - Atorvastatin for hyperlipidemia - Symbicort inhaler for COPD - Mirtazapine for depression, taken as needed - Oxycodone (Percocet) for back pain, taken three to four days a week depending on pain Social History: - Smokin-year history, currently reducing intake - Father was a tobacco tyson; tobacco was prevalent in upbringing - Engaged in efforts to quit smoking, with use of Lifesavers to manage cravings - Weight management efforts: Lost 60 pounds in the past, struggles with maintaining weight loss Problem List - Smoking cessation - Chronic left knee pain - Hyperlipidemia - Depression - Chronic back pain - Chronic obstructive pulmonary disease (COPD) Diagnostic results - Labs: Last completed in June; another lab set ordered for the next visit [facility] - Consultation and management advice with Dr. Doyle at [facility] regarding knee issues Patient Instructions - Continue current medications - Schedule lab tests before next appointment - Receive flu and pneumonia vaccinations when fully recovered from current cold - Follow-up appointment scheduled for December - Continue efforts to quit smoking - Maintain weight management strategies f/u 3 M Orders: Orders Complete Blood Count Auto Diff 08/27/25 E66.09 - Other obesity due to excess calories, E78.9 - Disorder of lipoprotein metabolism, unspecified, F11.20 - Opioid dependence, uncomplicated, F17.200 - Nicotine dependence, unspecified, uncomplicated, F39 - Unspecified mood [affective] disorder, I10 - Essential (primary) hypertension, J44.9 - Chronic obstructive pulmonary disease, unspecified, M17.12 - Unilateral primary osteoarthritis, left knee, M51.26 - Other intervertebral disc displacement, lumbar region, R06.2 - Wheezing, Z68.34 - Body mass index [BMI] 34.0-34.9, adult, Z91.09 - Other allergy status, other than to drugs and biological substances Comprehensive [place]. Panel Fast 08/27/25 E66.09 - Other obesity due to excess calories, E78.9 - Disorder of lipoprotein metabolism, unspecified, F11.20 - Opioid dependence, uncomplicated, F17.200 - Nicotine dependence, unspecified, uncomplicated, F39 - Unspecified mood [affective] disorder, I10 - Essential (primary) hypertension, J44.9 - Chronic obstructive pulmonary disease, unspecified, M17.12 - Unilateral primary osteoarthritis, left knee, M51.26 - Other intervertebral disc displacement, lumbar region, R06.2 - Wheezing, Z68.34 - Body mass index [BMI] 34.0-34.9, adult, Z91.09 - Other allergy status, other than to drugs and biological substances Amylase 08/27/25 E66.09 - Other obesity due to excess calories, E78.9 - Disorder of lipoprotein metabolism, unspecified, F11.20 - Opioid dependence, uncomplicated, F17.200 - Nicotine dependence, unspecified, uncomplicated, F39 - Unspecified mood [affective] disorder, I10 - Essential (primary) hypertension, J44.9 - Chronic obstructive pulmonary disease, unspecified, M17.12 - Unilateral primary osteoarthritis, left knee, M51.26 - Other intervertebral disc displacement, lumbar region, R06.2 - Wheezing, Z68.34 - Body mass index [BMI] 34.0-34.9, adult, Z91.09 - Other allergy status, other than to drugs and biological substances Lipase 08/27/25 E66.09 - Other obesity due to excess calories, E78.9 - Disorder of lipoprotein metabolism, unspecified, F11.20 - Opioid dependence, uncomplicated, F17.200 - Nicotine dependence, unspecified, uncomplicated, F39 - Unspecified mood [affective] disorder, I10 - Essential (primary) hypertension, J44.9 - Chronic obstructive pulmonary disease, unspecified, M17.12 - Unilateral primary osteoarthritis, left knee, M51.26 - Other intervertebral disc displacement, lumbar region, R06.2 - Wheezing, Z68.34 - Body mass index [BMI] 34.0-34.9, adult, Z91.09 - Other allergy status, other than to drugs and biological substances Lipid Panel 08/27/25 E66.09 - Other obesity due to excess calories, E78.9 - Disorder of lipoprotein metabolism, unspecified, F11.20 - Opioid dependence, uncomplicated, F17.200 - Nicotine dependence, unspecified, uncomplicated, F39 - Unspecified mood [affective] disorder, I10 - Essential (primary) hypertension, J44.9 - Chronic obstructive pulmonary disease, unspecified, M17.12 - Unilateral primary osteoarthritis, left knee, M51.26 - Other intervertebral disc displacement, lumbar region, R06.2 - Wheezing, Z68.34 - Body mass index [BMI] 34.0-34.9, adult, Z91.09 - Other allergy status, other than to drugs and biological substances TSH reflex Free T4 08/27/25 E66.09 - Other obesity due to excess calories, E78.9 - Disorder of lipoprotein metabolism, unspecified, F11.20 - Opioid dependence, uncomplicated, F17.200 - Nicotine dependence, unspecified, uncomplicated, F39 - Unspecified mood [affective] disorder, I10 - Essential (primary) hypertension, J44.9 - Chronic obstructive pulmonary disease, unspecified, M17.12 - Unilateral primary osteoarthritis, left knee, M51.26 - Other intervertebral disc displacement, lumbar region, R06.2 - Wheezing, Z68.34 - Body mass index [BMI] 34.0-34.9, adult, Z91.09 - Other allergy status, other than to drugs and biological substances
[2025-08-27 12:03] VITALS: BP 118/80; PULSE 85; O2SAT 96; BMI 33.6
--- OUTSIDE RECORDS SUMMARY | 2025-08-27 13:43 | XMS_ITS | Clinical Summary ---
Author Organization [facility] Address [address] [place] [address] Care Team Providers Care Speed Reading Teacher Name Role Phone Kathleen Vizcarra MD Primary Care Provider [phone] Allergies Active Allergy Reactions Criticality Noted Date [...] 2010 Shingrix-Zoster Vaccine (1 of 2) 2010 Fall Risk Assessment 2025 Osteoporosis Screening (DEXA Scan) 2025 Influenza Vaccine (#1) 2025 RSV Adult > 60+ Yrs or Pregn ant (1 - 1-dose 75+ series) 2035 Hepatitis B Vaccines Aged Out No long er eligible based on patient's age to complete this topic RSV Ped < 20 months Aged Out No longe r eligible based on patient's age to complete this topic Care Teams Speed Reading Teacher Relationship Specialty Start Date End Date Kathleen Vizcarra MD [address] [place] [id number] PCP - General Internal Medicine 04/29/19
== END 2025-08-27 13:16 | disposition home or self-care (01) ==
LOC: HO.HMCC 11:57
PROVIDERS: PCP Internal Medicine; Visit Provider Internal Medicine
DX: J44.1 Chronic obstructive pulmonary disease with (acute) exacerbation (principal); F11.20 Opioid dependence, uncomplicated; E66.09 Other obesity due to excess calories; Z68.34 Body mass index [BMI] 34.0-34.9, adult; R06.2 Wheezing; I10 Essential (primary) hypertension; F17.200 Nicotine dependence, unspecified, uncomplicated; M51.26 Other intervertebral disc displacement, lumbar region; E78.9 Disorder of lipoprotein metabolism, unspecified; M17.12 Unilateral primary osteoarthritis, left knee; F39 Unspecified mood [affective] disorder; Z91.09 Other allergy status, other than to drugs and biological substances

== ENCOUNTER → 2025-08-27 11:56 | Outpatient (BNVA) | payer OTHER, SELFPAY | PROVIDERS: PCP Internal Medicine; Visit Provider Internal Medicine | DX: I10 Essential (primary) hypertension (principal); J44.1 Chronic obstructive pulmonary disease with (acute) exacerbation; R06.02 Shortness of breath; F17.210 Nicotine dependence, cigarettes, uncomplicated; M51.26 Other intervertebral disc displacement, lumbar region; E66.09 Other obesity due to excess calories; E66.811 Obesity, class 1; E78.9 Disorder of lipoprotein metabolism, unspecified; M17.12 Unilateral primary osteoarthritis, left knee; F39 Unspecified mood [affective] disorder; F11.20 Opioid dependence, uncomplicated; Z91.09 Other allergy status, other than to drugs and biological substances; Z68.34 Body mass index [BMI] 34.0-34.9, adult | CPT/HCPCS: 96127 ==

== ENCOUNTER → 2025-09-22 13:20 | Outpatient (BNVA) | payer OTHER, SELFPAY | PROVIDERS: PCP Internal Medicine; Visit Provider Orthopaedic Surgery | DX: M17.12 Unilateral primary osteoarthritis, left knee (principal) | CPT/HCPCS: 20610; J2003; J7324 ==

== ENCOUNTER → 2025-09-22 13:20 | Outpatient (AMB) | payer OTHER, SELFPAY ==
--- NOTE | 2025-09-22 14:30 | MHC.OFFVIS ---
Intake Visit Reasons: Inj- Left Knee Orthovisc #1 Intake Note: Lluvia is a 65 year old female who presents today for an injection in her Left Knee, Orthovisc #1. Allergies Antihistamines - Alkylamine (ANTIHISTAMINES - ALKYLAMINE) Adverse Reaction (Intermediate, Verified 09/29/25 16:58) TACHYCARDIA Medication List - Last Reconciled 09/22/25 by Brant Smith MD atorvastatin 40 mg PO DAILY budesonide-formoterol 160-4.5 mcg/actuation (Symbicort) 2 puffs inhalation BID 3 months mirtazapine 15 mg PO BEDTIME oxycodone-acetaminophen 5-325 mg (Percocet) 1 tab PO .Q.d. PRN 30 days semaglutide (weight loss) 2.4 mg (0.75 mL) subcut QWEEK 90 days tiotropium bromide 2.5 mcg/actuation (Spiriva Respimat) 2 inhalations inhalation QAM 90 days PFSH Medical History Osteoarthritis Elevated cholesterol HTN (hypertension) Endometrial cancer Lumbar spondylosis Surgical History History of lithotripsy Hx of bilateral cataract extraction History of fusion of cervical spine History of carpal tunnel release History of colonoscopy History of hysterectomy for cancer Family History Father Pancreatic cancer Mother No problems noted. Sister Diabetes mellitus Sister Epilepsy Sister Epilepsy Sister Breast cancer Sister No problems noted. Maternal Grandfather Unknown family medical history Maternal Grandmother Unknown family medical history Paternal Grandfather No problems noted. 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 Sexual orientation: Straight/Heterosexual Gender identity: Female Cognitive needs: No Hearing needs: Yes Vision needs: No Female Reproductive History Menstrual Age of Menarche: 11 Physical Exam Extrem Other: Left knee examination shows a minimal effusion, palpable crepitus with range of motion, pain with range of motion, no instability Results Reviewed Results Reviewed: X-rays of the patient's left knee show joint space narrowing, subchondral sclerosis, no acute bony abnormalities Assessment & Plan Assessment & Plan (1) Osteoarthritis of left knee: Code(s): M17.12 - Unilateral primary osteoarthritis, left knee Category: Medical Qualifiers: Osteoarthritis type: primary Qualified Code(s): M17.12 - Unilateral primary osteoarthritis, left knee Plan Ms. Griffin presents with left knee pain due to osteoarthritis. The risks and benefits of the 1st Orthovisc viscosupplementation injection were discussed at length with the patient. The patient wished to proceed. She tolerated the injection well. She will continue with her home exercise program. She will follow up next week as scheduled. I spent 21 minutes in reviewing the patient's records and imaging studies, seeing the patient and documenting in the medical record. Coding Level of Care Code Est Pt Level 3 (00942) Complex EM visit Add On G2211 Diagnoses Primary osteoarthritis of left knee M17.12 Osteoarthritis type: primary
--- OUTSIDE RECORDS SUMMARY | 2025-09-22 18:50 | XMS_ITS | Clinical Summary ---
Author Organization [facility] Address [address] [place] [address] Care Team Providers Care Motorized Squad Sergeant Name Role Phone Kathleen Vizcarra MD Primary Care Provider [phone] Allergies Active Allergy Reactions Criticality Noted Date [...] age to complete this topic Care Teams Motorized Squad Sergeant Relationship Specialty Start Date End Date Kathleen Vizcarra MD [address] [place] [id number] PCP - General Internal Medicine 04/29/19
== END ==
LOC: HO.HOS 13:21
PROVIDERS: PCP Internal Medicine; Visit Provider Orthopaedic Surgery
DX: M17.12 Unilateral primary osteoarthritis, left knee (principal)
CPT/HCPCS: 20610

== ENCOUNTER 2025-09-29 12:38 | Outpatient (AMB) | payer OTHER, SELFPAY ==
--- NOTE | 2025-09-29 12:43 | MHC.OFFVIS ---
Intake Visit Reasons: Inj- Left Knee Orthovisc #2 Intake Note: Lluvia is a 65 year old female who presents today for an injection in her left Knee, Orthovisc #2. The patient states that she has gotten mild relief from the 1st injection. She continues with her home exercise program. Allergies Antihistamines - Alkylamine (ANTIHISTAMINES - ALKYLAMINE) Adverse Reaction (Intermediate, Verified 09/29/25 12:45) TACHYCARDIA Medication List - Last Reconciled 09/29/25 by Brant Smith MD atorvastatin 40 mg PO DAILY budesonide-formoterol 160-4.5 mcg/actuation (Symbicort) 2 puffs inhalation BID 3 months mirtazapine 15 mg PO BEDTIME oxycodone-acetaminophen 5-325 mg (Percocet) 1 tab PO .Q.d. PRN 30 days semaglutide (weight loss) 2.4 mg (0.75 mL) subcut QWEEK 90 days tiotropium bromide 2.5 mcg/actuation (Spiriva Respimat) 2 inhalations inhalation QAM 90 days PFS Medical History Osteoarthritis Elevated cholesterol HTN (hypertension) Endometrial cancer Lumbar spondylosis Surgical History History of lithotripsy Hx of bilateral cataract extraction History of fusion of cervical spine History of carpal tunnel release History of colonoscopy History of hysterectomy for cancer Family History Father Pancreatic cancer Mother No problems noted. Sister Diabetes mellitus Sister Epilepsy Sister Epilepsy Sister Breast cancer Sister No problems noted. Maternal Grandfather Unknown family medical history Maternal Grandmother Unknown family medical history Paternal Grandfather No problems noted. 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 Sexual orientation: Straight/Heterosexual Gender identity: Female Cognitive needs: No Hearing needs: Yes Vision needs: No Female Reproductive History Menstrual Age of Menarche: 11 Physical Exam Extrem Other: Left knee examination shows a minimal effusion, palpable crepitus with range of motion, pain with range of motion, no instability Office Procedures AMB Joint Injection/Aspiration Joint Injection/Aspiration Primary Site: left knee Prep: site was prepped using aseptic technique Injected: with 4 mL of, 1% plain lidocaine and other (Orthovisc viscosupplementation) Procedure: The patient tolerated the procedure well Coding - Large joint Procedure code (CPT) selection complete Results Reviewed Results Reviewed: X-rays of the patient's left knee show joint space narrowing, subchondral sclerosis, no acute bony abnormalities Assessment & Plan Assessment & Plan (1) Osteoarthritis of left knee: Code(s): M17.12 - Unilateral primary osteoarthritis, left knee Category: Medical Qualifiers: Osteoarthritis type: primary Qualified Code(s): M17.12 - Unilateral primary osteoarthritis, left knee Plan Ms. Griffin presents with left knee pain due to osteoarthritis. The risks and benefits of a 2nd Orthovisc viscosupplementation injection were discussed at length with the patient. The patient wished to proceed. She tolerated the injection well. She will continue with her home exercise program. She will follow up next week as scheduled. Feel free to call me at any time should questions regarding her orthopedic management arise. Orders: Orders AMB Joint Injection/Aspiration Today M17.12 - Unilateral primary osteoarthritis, left knee Coding Level of Care Code Procedure Only Diagnoses Primary osteoarthritis of left knee M17.12 Osteoarthritis type: primary CPT Codes Coding - 39472 Large joint: 61373 - Large joint ([id number])
--- OUTSIDE RECORDS SUMMARY | 2025-09-29 15:59 | XMS_ITS | Clinical Summary ---
Author Organization [facility] Address [address] [place] [address] Care Team Providers Care Sheet Metal Shop Supervisor Name Role Phone Kathleen Vizcarra MD Primary Care Provider [phone] Allergies Active Allergy Reactions Criticality Noted Date [...] age to complete this topic Care Teams Sheet Metal Shop Supervisor Relationship Specialty Start Date End Date Kathleen Vizcarra MD [address] [place] [id number] PCP - General Internal Medicine 04/29/19
== END 2025-09-29 12:59 | disposition home or self-care (01) ==
LOC: HO.HOS 12:39
PROVIDERS: PCP Internal Medicine; Visit Provider Orthopaedic Surgery
DX: M17.12 Unilateral primary osteoarthritis, left knee (principal)
CPT/HCPCS: 20610

== ENCOUNTER → 2025-09-29 12:38 | Outpatient (BNVA) | payer OTHER, SELFPAY | PROVIDERS: PCP Internal Medicine; Visit Provider Orthopaedic Surgery | DX: M17.12 Unilateral primary osteoarthritis, left knee (principal) | CPT/HCPCS: 20610; J2003; J7324 ==

== ENCOUNTER 2025-10-06 13:12 | Outpatient (AMB) | payer OTHER, SELFPAY ==
--- NOTE | 2025-10-06 13:17 | MHC.OFFVIS ---
Vital Signs 10/06/25 13:26 Height 5 ft 6 in Weight 208 lb BMI 33.6 Intake Visit Reasons: Inj- Left Knee Orthovisc #3 Intake Note: Lluvia is a 65 year old female who presents today for an injection in her Left Knee, Orthovisc #3. The patient states that she has gotten mild relief from her 1st 2 injections. She continues with her home exercise program. Allergies Antihistamines - Alkylamine (ANTIHISTAMINES - ALKYLAMINE) Adverse Reaction (Intermediate, Verified 10/06/25 13:26) TACHYCARDIA Medication List - Last Reconciled 10/07/25 by Brant Smith MD atorvastatin 40 mg PO DAILY budesonide-formoterol 160-4.5 mcg/actuation (Symbicort) 2 puffs inhalation BID 3 months mirtazapine 15 mg PO BEDTIME oxycodone-acetaminophen 5-325 mg (Percocet) 1 tab PO .Q.d. PRN 30 days semaglutide (weight loss) 2.4 mg (0.75 mL) subcut QWEEK 90 days tiotropium bromide 2.5 mcg/actuation (Spiriva Respimat) 2 inhalations inhalation QAM 90 days PFSH Medical History Osteoarthritis Elevated cholesterol HTN (hypertension) Endometrial cancer Lumbar spondylosis Surgical History History of lithotripsy Hx of bilateral cataract extraction History of fusion of cervical spine History of carpal tunnel release History of colonoscopy History of hysterectomy for cancer Family History Father Pancreatic cancer Mother No problems noted. Sister Diabetes mellitus Sister Epilepsy Sister Epilepsy Sister Breast cancer Sister No problems noted. Maternal Grandfather Unknown family medical history Maternal Grandmother Unknown family medical history Paternal Grandfather No problems noted. 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 Sexual orientation: Straight/Heterosexual Gender identity: Female Cognitive needs: No Hearing needs: Yes Vision needs: No Female Reproductive History Menstrual Age of Menarche: 11 Physical Exam Vital Signs: BMI result Body Mass Index 33.6 Extrem Other: Left knee examination shows a minimal effusion, palpable crepitus with range of motion, pain with range motion, no instability Office Procedures AMB Joint Injection/Aspiration Joint Injection/Aspiration Primary Site: left knee Prep: site was prepped using aseptic technique Injected: with 4 mL of, 1% plain lidocaine and other (30 mg of Orthovisc viscosupplementation) Procedure: The patient tolerated the procedure well Coding 11040 - Large joint Procedure code (CPT) selection complete Assessment & Plan Assessment & Plan (1) Osteoarthritis of left knee: Code(s): M17.12 - Unilateral primary osteoarthritis, left knee Category: Medical Qualifiers: Osteoarthritis type: primary Qualified Code(s): M17.12 - Unilateral primary osteoarthritis, left knee Plan Ms. Griffin presents with left knee pain due to osteoarthritis. The risks and benefits of a 3rd Orthovisc injection where it discussed at length with the patient. The patient wished to proceed. She tolerated the injection well. She will continue with her home exercise program. She will contact me prior to her follow-up appointment in 3 months should any questions or concerns arise. Feel free to call me at any time should questions regarding her orthopedic management arise. Orders: Orders AMB Joint Injection/Aspiration 10/06/25 M17.12 - Unilateral primary osteoarthritis, left knee Coding Level of Care Code Procedure Only Diagnoses Primary osteoarthritis of left knee M17.12 Osteoarthritis type: primary CPT Codes Coding - 59638 Large joint: 48312 - Large joint ([id number])
[2025-10-06 13:26] VITALS: BMI 33.6
--- OUTSIDE RECORDS SUMMARY | 2025-10-06 16:01 | XMS_ITS | Clinical Summary ---
Author Organization [facility] Address [address] [place] [address] Care Team Providers Care Rn Liaison Name Role Phone Kathleen Vizcarra MD Primary Care Provider [phone] Allergies Active Allergy Reactions Criticality Noted Date [...] age to complete this topic Care Teams Rn Liaison Relationship Specialty Start Date End Date Kathleen Vizcarra MD [address] [place] [id number] PCP - General Internal Medicine 04/29/19
== END 2025-10-06 13:46 | disposition home or self-care (01) ==
LOC: HO.HOS 13:13
PROVIDERS: PCP Internal Medicine; Visit Provider Orthopaedic Surgery
DX: M17.12 Unilateral primary osteoarthritis, left knee (principal)
CPT/HCPCS: 20610

== ENCOUNTER → 2025-10-06 13:12 | Outpatient (BNVA) | payer OTHER, SELFPAY | PROVIDERS: PCP Internal Medicine; Visit Provider Orthopaedic Surgery | DX: M17.12 Unilateral primary osteoarthritis, left knee (principal) | CPT/HCPCS: 20610; J2003; J7324 ==